=== PATIENT | female | born 1945 | race Caucasian/White ===

== ENCOUNTER 2023-10-14 13:33 | Outpatient (CLI) | payer MEDICARE, MEDICAID, SELFPAY ==
--- NOTE | ~2023-10-14 | US_ITS ---
EXAMINATION:US venous doppler LE BI INDICATION:Lower extremity swelling TECHNIQUE: Multiple grayscale, color flow and Doppler images of the right and left lower extremity de ep venous systems were obtained and reviewed. COMPARISON:No prior studies for comparison. FINDINGS: The common femoral, superficial femoral and popliteal veins demonstrate normal respiratory variation, augmentation and compressibility. Color flow is also seen within the posterior tibial, pe roneal, greater saphenous and profunda veins. IMPRESSION: 1: No lower extremity deep venous thrombosis. Reviewed, dictated and finalized at location B.
== END 2023-10-14 13:34 | disposition home or self-care (01) ==
LOC: ANHIMG 13:33
PROVIDERS: PCP Internal Medicine; Visit Provider Internal Medicine
DX: M79.89 Other specified soft tissue disorders (principal)
CPT/HCPCS: 93970

== ENCOUNTER 2023-11-12 05:25 | Emergency (ER) | payer MEDICARE, MEDICAID, SELFPAY ==
--- NOTE | ~2023-11-12 | XR_ITS ---
Portable chest x-ray Comparison: 10/11/2014 Clinical History: Shortness of breath Findings: There is central congestive change and probable minimal interstitial edema. Cardiomediast inal silhouette is stable. Bones and soft tissues are unremarkable, aside from cervicothoracic spinal fixation hardware. Impression: Central congestive change and minimal interstitial edema. Reviewed, dictated and finalized at [facility]. Impression: Central congestive change and minimal interstitial edema.
--- NOTE | ~2023-11-12 | CT_ITS ---
Clinical Indication: Shortness of breath, abdominal pain CT Scan of the Chest, Abdomen, and Pelvis with Contrast: Technique: Contiguous sections were acquired throughout the chest, abdomen, and pelvis after intraven ous administration of 100 cc of Omnipaque 350. Dose reduction technique was used on this scan by dylan panchaling automated exposure control and iterative reconstruction technique. The dose-length product (DL P) was 2213.32 mGy-cm. Findings: There is no evidence of any significant mediastinal, hilar or axillary lymphadenopathy. The mediastin al soft tissues appear normal. There is no evidence of pleural or pericardial effusion. The lungs are clear, aside from left lower lobe calcified granuloma. Mild intrahepatic and extra hepatic biliary dilatation is likely related to prior cholecystectomy. Li compa is otherwise unremarkable. The spleen, pancreas, adrenals and kidneys are within normal limits. T here are atherosclerotic calcifications of the aorta. There are several probably densely calcified s mall splenic artery aneurysms. No lymphadenopathy. No bowel obstruction. Questionable mild wall thickening of the gastric antrum versus proximal duodenu m. Possible mild urinary bladder wall thickening. No pelvic mass seen. No ascites. Impression: Questionable mild wall thickening of the gastric antrum/proximal duodenum. Correlate for gastritis/du odenitis, or possibly peptic ulcer disease. Possible cystitis. Correlate with urinalysis. No pulmonary embolus. Clear lungs. Several probable small densely calcified splenic artery aneurysms. Reviewed, dictated and finalized at location . Impression: Questionable mild wall thickening of the gastric antrum/proximal duodenum. Kennedy elate for gastritis/duodenitis, or possibly peptic ulcer disease. Possible cystitis. Correlate with urinalysis. No pulmonary embolus. Clear lungs. Several probable small densely calcified splenic artery aneurysms.
[2023-11-12 05:39] VITALS: BP 157/73; PULSE 107; RESP 20; TEMP 36.4; O2SAT 98; O2SAT 99
--- NOTE | 2023-11-12 05:42 | ECG_ITS ---
Test Date: 2023-11-12 06:13:54 Measurements Intervals [place] Rate: 90 P: 58 LA: 164 QRS: 29 QRSD: 74 T: 35 QT: 352 QTc: 431 Interpretive Statements SINUS RHYTHM WITH SINUS ARRHYTHMIA LOW QRS VOLTAGE IN LIMB LEADS BASELINE ARTIFACT- I, II, III, AVR, AVL, AVF, V3 BORDERLINE ECG No previous ECG available for comparison Electronically Signed On 11-12-2023 06:57:06 CDT by Edenilson Rodriguez D.O.
--- NOTE | 2023-11-12 05:44 | ED.GENADULT ---
HPI - General Adult General Chief complaint: Shortness of Breath/Dyspnea <Tee Lawrence MD - Last Filed: 11/22/23 07:29> Stated complaint: dizzy and sob, worsening LE edema, hx CHF <Tee Lawrence MD - Last Filed: 11/22/23 07:29> Time Seen by Provider: 11/12/23 05:34 <Tee Lawrence MD - Last Filed: 11/22/23 07:29> History of Present Illness HPI narrative: 78-year-old female history of polio and CHF presents the emergency department for evaluation for worsening shortness of breath. Patient does had her blood pressure medications changed yesterday and did start taking the new medication. Patient woke up in the night with left upper quadrant pain and worsening shortness of breath. Patient denies any associated chest pain with this. Patient does report that she has had the left upper quadrant pain before. Patient also reports she has worsening lower extremity edema bilaterally. <Tee Lawrence MD - Last Filed: 11/22/23 07:29> Related Data Allergies/adverse reactions: Allergies Allergy/AdvReac Type Severity Reaction Status Date / Time codeine Allergy Unknown Abdominal Verified 11/12/23 05:26 Pain <Tee Lawrence MD - Last Filed: 11/22/23 07:29> Review of Systems Review of Systems: All systems reviewed & are unremarkable except as noted in HPI and below <Tee Lawrence MD - Last Filed: 11/22/23 07:29> PMFSH Family History Family History: Family History (Updated 11/02/13 @ 07:13 by DOCTOR UNKNOWN) Father Family history of congestive heart failure, Onset Age: 75 Other Diabetes mellitus Family history of arthritis Family history of cardiovascular disease Hypertension <Tee Lawrence MD - Last Filed: 11/22/23 07:29> Social History Social History: Social History Smoking status: Never smoker Alcohol intake: never <Tee Lawrence MD - Last Filed: 11/22/23 07:29> Exam Narrative: APPEARANCE: Well appearing, no pain, no distress, well-nourished. HEAD: normocephalic, atraumatic. EYES: PERRLA/EOMI, conjunctivae clear. NOSE: Normal no drainage EARS:TMS clear with good light reflex. THROAT: Pharynx clear, no exudate. NECK: Supple. No adenopathy, no masses. RESPIRATORY: Airway patent, respirations nonlabored. Clear to auscultation bilaterally, no rales, rhonchi, wheezing. CARDIOVASCULAR: Regular rate and rhythm without murmurs rubs or gallops. ABDOMINAL: Soft, nontender, nondistended, normal bowel sounds MUSCULOSKELETAL: Moves all extremities. Bilateral lower extremity edema NEURO: Alert. Cranial nerves II through XII intact. Grossly SKIN: Warm, dry. Normal Color <Tee Lawrence MD - Last Filed: 11/22/23 07:29> Course Vital Signs Vital signs: Vital Signs Temperature 97.6 F 11/12/23 05:39 Pulse Rate 107 H 11/12/23 05:39 Respiratory Rate 20 11/12/23 05:39 Blood Pressure 157/73 H 11/12/23 05:39 Pulse Oximetry 98 11/12/23 05:39 Oxygen Delivery Room Air 11/12/23 05:39 Temperature 97.6 F 11/12/23 05:39 Pulse Rate 88 11/12/23 08:17 Respiratory Rate 16 11/12/23 08:17 Blood Pressure 140/56 L 11/12/23 08:17 Pulse Oximetry 96 11/12/23 08:17 Oxygen Delivery Room Air 11/12/23 05:39 <Tee Lawrence MD - Last Filed: 11/22/23 07:29> Vital Signs Temperature 97.6 F 11/12/23 05:39 Pulse Rate 107 H 11/12/23 05:39 Respiratory Rate 20 11/12/23 05:39 Blood Pressure 157/73 H 11/12/23 05:39 Pulse Oximetry 98 11/12/23 05:39 Oxygen Delivery Room Air 11/12/23 05:39 Temperature 97.6 F 11/12/23 05:39 Pulse Rate 88 11/12/23 08:17 Respiratory Rate 16 11/12/23 08:17 Blood Pressure 140/56 L 11/12/23 08:17 Pulse Oximetry 96 11/12/23 08:17 Oxygen Delivery Room Air 11/12/23 05:39 <Julian Fu MD - Last Filed: 11/12/23 07:55> Medical Decision Making MDM Narrative Medical decision making narrative: 78-year-old female presenting
[2023-11-12 06:15] LABS: Basophils Absolute Auto 0.1 K/mm3 (0.0-0.1); Basophils Percent Auto 0.8 % (0.2-1.2); Eosinophils Absolute Auto 0.2 K/mm3 (0-0.3); Eosinophils Percent Auto 2.3 % (0-4.4); Hematocrit 40.7 % (37.0-47.0); Hemoglobin 13.7 g/dL (12.0-15.0); Immature Granulocyte Absolute 0.02 K/mm3 (0.00-0.031); Immature Granulocyte Percent A 0.3 % (0-0.5); Lymphocytes Absolute Auto 2.85 K/mm3 (0.9-3.2); Lymphocytes Percent Auto 35.9 % (18.3-44.2); Mean Corpuscular HGB Conc 33.7 g/dl (32-36); Mean Corpuscular Hemoglobin 31.9 pg (26-34); Mean Corpuscular Volume 94.7 fl (80-100); Mean Platelet Volume 9.8 fl (7.4-10.4); Monocytes Absolute Auto 0.6 K/mm3 (0.1-0.6); Monocytes Percent Auto 7.9 % (2.6-8.5); Neutrophils Absolute Auto 4.2 K/mm3 (1.3-6.7); Neutrophils Percent Auto 52.8 % (45.5-73.1); Platelet Count Result 317 k/mm3 (150-375); Red Cell Distribution Width 14.5 % (11.5-14.5); White Blood Count 7.9 K/mm3 (4.5-10.0)
[2023-11-12 06:18] LABS: Add Urine Microscopic? NO; Appearance Urine Clear (Clear); Bilirubin Urine Negative (Negative); Blood Urine Negative (Negative); Color Urine Yellow (Yellow); Glucose Urine UA Negative (Negative); Ketones Urine Negative (Negative); Leukocyte Esterase Ur Negative LEU/UL (Negative); Nitrate Urine Negative (Negative); Protein Urine Negative (Negative); Specific Grav Ur 1.015 (1.001-1.035); Urobilinogen Urine 0.2 mg/dL (<2.0)
[2023-11-12 06:25] LABS: Alanine Aminotransferase 35 U/L (6-35); Alkaline Phosphatase 243 U/L (38-126); Anion Gap 11 mmol/L (4-12); Aspartate Amino Transferase 30 U/L (14-36); Bilirubin,Total 0.9 mg/dL (0.2-1.3); Blood Urea Nitrogen 14 mg/dL (7-17); Calcium 9.1 mg/dL (8.4-10.2); Carbon Dioxide 27 mmol/L (22-30); Chloride 99 mmol/L (98-107); Estimated Glomerular Filt Rate > 60; Glucose 182 mg/dL (65-110); Potassium 3.6 mmol/L (3.4-5.0); Sodium 137 mmol/L (137-145)
[2023-11-12 06:33] LABS: NT Pro B Type Natriuretic Pept 116 pg/mL (19.9-100)
[2023-11-12 06:37] LABS: D Dimer 0.79 ug/mL (<0.48)
[2023-11-12 06:49] LABS: INR 0.9; Partial Thromboplastin Time 27.4 Seconds (22.3-36.8); Prothrombin Time 12.8 Seconds (11.1-14.7)
[2023-11-12 07:30] VITALS: BP 145/55; PULSE 91; RESP 19; O2SAT 97
[2023-11-12 08:17] VITALS: BP 140/56; PULSE 88; RESP 16; O2SAT 96
[2023-11-12 08:36] LABS: Influenza A QL RT-PCR Negative (Negative); Influenza B QL RT-PCR Negative (Negative); RSV RNA, RT-PCR Negative (Negative); SARS-CoV-2 RNA PCR Negative (Negative)
== END 2023-11-12 08:19 | disposition home or self-care (01) ==
PROVIDERS: Emergency Medicine; Emergency Provider Student in an Organized Health Care Education/Training Program; PCP Internal Medicine
DX: K29.70 Gastritis, unspecified, without bleeding (principal); K29.80 Duodenitis without bleeding; I50.9 Heart failure, unspecified; A80.9 Acute poliomyelitis, unspecified; Z20.822 Contact with and (suspected) exposure to COVID-19
CPT/HCPCS: 36415; 71045; 71275; 74177; 80053; 81003; 83880; 85025; 85380; 85610; 85730; 87637; 93005; 99284; Q9967

== ENCOUNTER 2023-12-24 12:21 | Outpatient (CLI) | payer MEDICARE, MEDICAID, SELFPAY ==
[2023-12-24 13:17] LABS: Alanine Aminotransferase 36 U/L (6-35); Albumin Level 4.2 g/dL (3.5-5.1); Alkaline Phosphatase 161 U/L (38-126); Aspartate Amino Transferase 31 U/L (14-36); Bilirubin,Total 0.6 mg/dL (0.2-1.3)
== END 2023-12-24 12:22 | disposition home or self-care (01) ==
PROVIDERS: PCP Internal Medicine; Visit Provider Nurse Practitioner Family
DX: R74.8 Abnormal levels of other serum enzymes (principal)
CPT/HCPCS: 36415; 80076; 84075; 84080

== ENCOUNTER 2024-01-12 08:53 | Outpatient (CLI) | payer MEDICARE, MEDICAID, SELFPAY ==
[2024-01-12 10:48] LABS: Hepatitis B Surface Antigen Negative (Negative)
[2024-01-12 10:54] LABS: HAV RESULT Negative (Negative); Hepatitis B Core IgM Result Negative (Negative)
[2024-01-12 11:02] LABS: Iron 64 ug/dL (37-170)
[2024-01-12 11:06] LABS: Hepatitis C Virus Antibody Negative (Negative)
[2024-01-12 11:14] LABS: Percent Iron Saturation 16 % (20-50)
[2024-01-13 07:48] LABS: GGT 24 U/L (3-65)
[2024-01-18 02:54] LABS: Alpha-1-Antitrypsin, QN 134 mg/dL (83-199); Ceruloplasmin 25 mg/dL (14-48)
[2024-01-18 06:25] LABS: Actin Antibody (IgG) <20 U (<20)
== END 2024-01-12 08:54 | disposition home or self-care (01) ==
PROVIDERS: PCP Internal Medicine; Visit Provider Nurse Practitioner Family
DX: R74.8 Abnormal levels of other serum enzymes (principal); R10.12 Left upper quadrant pain
CPT/HCPCS: 36415; 80074; 81596; 82103; 82390; 82728; 82977; 83520; 83540; 83550; 86038; 86039; 86364

== ENCOUNTER 2024-01-17 09:24 | Emergency (ER) | payer MEDICARE, MEDICAID, SELFPAY ==
--- NOTE | ~2024-01-17 | CT_ITS ---
EXAMINATION: CT cervical spine wo con DATE: 01/17/2024 12:15 INDICATION: Neck pain. TECHNIQUE: Computed tomography (CT) of the cervical spine was performed without intravenous contrast. Automated exposure control and iterative reconstruction technique were employed. The dose-length pro duct was 457.93 mGy-cm. COMPARISON: CT cervical spine 01/18/2014 FINDINGS: Alignment is normal. There are changes of anterior fusion procedure from C3 to C7 with ante rior plate and screws. There is mild chronic anterior wedging of T1 vertebral body. Intervertebral di sc heights are normal. At the C1-C2, there is severe osteoarthritis of the facet joints and anterior atlantoaxial joint. The following disc levels are specifically discussed: C2-C3: There is moderate bilateral uncovertebral joint osteoarthritis. There is severe bilateral face t joint osteoarthritis. There is moderate right and mild left neural foraminal stenosis. There is mil d central canal stenosis. C3-C4: There is mild bilateral uncovertebral joint hypertrophy. There is mild left facet joint osteoa rthritis. There is ankylosis of right facet joint with mild hypertrophy. There is mild bilateral neur al foraminal stenosis. There is no central canal stenosis. C4-C5: There is moderate bilateral uncovertebral joint hypertrophy. There is ankylosis of the facet j oints with mild hypertrophy. There is mild bilateral neural foraminal stenosis. There is mild central canal stenosis. C5-C6: There is moderate bilateral uncovertebral joint hypertrophy. There is moderate bilateral facet joint osteoarthritis. There is mild right and moderate left neural foraminal stenosis. There is mild central canal stenosis. C6-C7: There is moderate bilateral uncovertebral joint hypertrophy. There is mild bilateral facet cristi nt osteoarthritis. There is mild bilateral neural foraminal stenosis. There is no central canal steno sis. C7-T1: There is mild bilateral uncovertebral joint osteoarthritis. There is severe bilateral facet helen int osteoarthritis. There is mild bilateral neural foraminal stenosis. There is no central canal sten osis. IMPRESSION: 1. Anterior fusion procedure from C3 to C7. 2. Moderate left neural foraminal stenosis at C5-C6. Otherwise mild cervical spondylosis. Reviewed, dictated and finalized at location A. ION GATEMAN IMPRESSION: 1. Anterior fusion procedure from C3 to C7. 2. Moderate left neural foraminal stenosis at C5-C6. Otherwise mild cervical sp ondylosis.
[2024-01-17 09:37] VITALS: BP 160/62; PULSE 77; RESP 14; TEMP 36.7; O2SAT 100
--- NOTE | 2024-01-17 11:27 | PC.NURSE ---
Patient having neck pain bilaterally, lympnodes feel enlarged. patient unable to open mouth to allow visualization of throat. patient denies sore throat but reports postnasal drip and cold from weather change last week.
--- NOTE | 2024-01-17 11:51 | ED.GENADULT ---
HPI - General Adult General Chief complaint: Neck Pain/Injury Stated complaint: neck pain Time Seen by Provider: 01/17/24 11:26 History of Present Illness HPI narrative: 78-year-old female presents to the emergency department for evaluation for neck pain. Patient describes bilateral neck pain that radiates from her shoulders into her neck. Patient denies any falls or injuries. Patient does have history of polio and is wheelchair-bound. Patient is requesting medication for pain control. Patient denies any associated numbness or weakness. Related Data Home Medications Medication Instructions Recorded Confirmed B-complex with vitamin C 1 tablet PO DAILY 12/03/23 allopurinol 300 mg tablet 300 mg PO DAILY 12/03/23 atorvastatin 20 mg tablet 20 mg PO DAILY 12/03/23 cholecalciferol (vitamin D3) 125 125 mcg PO DAILY 12/03/23 mcg (5,000 unit) capsule hydralazine 10 mg tablet 10 mg PO BID 12/03/23 metformin 500 mg tablet,extended 500 mg PO BID 12/03/23 release 24hr (osmotic) metoprolol succinate 100 mg 100 mg PO DAILY 12/03/23 tablet,extended release 24 hr olmesartan 40 mg tablet 40 mg PO DAILY 12/03/23 pantoprazole 40 mg tablet,delayed 40 mg PO QAM 12/03/23 release spironolactone 25 mg tablet 25 mg PO DAILY 12/03/23 tramadol 50 mg tablet 50 mg PO ONCE 12/03/23 Allergies Allergy/AdvReac Type Severity Reaction Status Date / Time codeine Allergy Unknown Abdominal Verified 01/17/24 09:41 Pain Review of Systems Review of Systems: All systems reviewed & are unremarkable except as noted in HPI and below [facility] Past Medical History Medical History (Updated 01/17/24 @ 14:22 by Tee Lawrence MD) Allergies Arthritis Chronic GERD Diabetes History of blood clots Hypertension Polio Surgical History Surgical History (Updated 12/03/23 @ 14:28 by Dian Galaviz MA) H/O heart artery stent Family History Family History Father Family history of congestive heart failure, Onset Age: 75 Other Diabetes mellitus Family history of arthritis Family history of cardiovascular disease Hypertension Social History Social History Smoking status: Never smoker Alcohol intake: never Exam Narrative: APPEARANCE: Uncomfortable appearing HEAD: normocephalic, atraumatic. EYES: PERRLA/EOMI, conjunctivae clear. NOSE: Normal no drainage EARS:TMS clear with good light reflex. THROAT: Pharynx clear, no exudate. NECK: Supple. No adenopathy, no masses. RESPIRATORY: Airway patent, respirations nonlabored. Clear to auscultation bilaterally, no rales, rhonchi, wheezing. CARDIOVASCULAR: Regular rate and rhythm without murmurs rubs or gallops. ABDOMINAL: Soft, nontender, nondistended, normal bowel sounds MUSCULOSKELETAL: Bilateral trapezius tenderness tenderness that radiates into her bilateral neck. NEURO: Alert. Cranial nerves II through XII intact. Good gait. Good coordination SKIN: Warm, dry. Normal Color Course Vital Signs Vital signs: Vital Signs Temperature 98.1 F 01/17/24 09:37 Pulse Rate 77 01/17/24 09:37 Respiratory Rate 14 01/17/24 09:37 Blood Pressure 160/62 H 01/17/24 09:37 Pulse Oximetry 100 01/17/24 09:37 Oxygen Delivery Room Air 01/17/24 09:37 Temperature 98.1 F 01/17/24 09:37 Pulse Rate 99 01/17/24 14:28 Respiratory Rate 16 01/17/24 14:28 Blood Pressure 132/61 01/17/24 14:28 Pulse Oximetry 98 01/17/24 14:28 Oxygen Delivery Room Air 01/17/24 09:37 Medical Decision Making [facility] Narrative Medical decision making narrative: 78-year-old female presents emergency department for bilateral muscular neck pain. Patient had negative CT imaging. Patient reports she does feel improved with treatment. Patient will be discharged home with [facility] and Keldron. Patient family are comfortable with plan for discharge and close follow-up. Suspect trapezius strain Differential Diagnosis Differential Diagnosis: Cervical spine fracture, cervical strain, cervical radiculopathy, trapezius strain, torticollis Vital Signs Vital Signs: Vital Signs Temperature 98.1 F 01/17/24 09:37 Pulse Rate 77 01/17/24 09:37 Respiratory Rate 14 01/17/24 09:37 Blood Pressure 160/62 H 01/17/24 09:37 Pulse Oximetry 100 01/17/24 09:37 Oxygen Delivery Room Air 01/17/24 09:37 Temperature 98.1 F 01/17/24 09:37 Pulse Rate 99 01/17/24 14:28 Respiratory Rate 16 01/17/24 14:28 Blood Pressure 132/61 01/17/24 14:28 Pulse Oximetry 98 01/17/24 14:28 Oxygen Delivery Room Air 01/17/24 09:37 Imaging Data Radiologist's impression: Impressions Cervical Spine CT 01/17/24 12:16 IMPRESSION: 1. Anterior fusion procedure from C3 to C7. 2. Moderate left neural foraminal stenosis at C5-C6. Otherwise mild cervical spondylosis. Discharge Plan Discharge Clinical Impression: Strain of cervical portion of both trapezius muscles Patient Disposition: Home, Self-Care Condition: Stable Instructions: Antibiotic Form, Neck Pain (ED) Additional Instructions: Flexeril for muscle spasm. Tylenol for pain control. Replace the Tylenol with Keldron for additional pain control. Do not take Tylenol and Keldron at the same time as both do contain acetaminophen. Have close follow-up with your primary care physician. If you have any worsening symptoms then please call or return to the emergency department. Prescriptions: New cyclobenzaprine 10 mg tablet 10 mg PO BID PRN (Reason: muscle spasm) Qty: 14 0RF hydrocodone-acetaminophen 5-325 mg tablet 1 tablet PO Q12H PRN (Reason: pain) Qty: 14 0RF ondansetron 4 mg tablet,disintegrating 4 mg PO Q8H PRN (Reason: nausea and vomiting) Qty: 14 0RF No Action olmesartan 40 mg tablet 40 mg PO DAILY allopurinol 300 mg tablet 300 mg PO DAILY spironolactone 25 mg tablet 25 mg PO DAILY pantoprazole 40 mg tablet,delayed release (DR/EC) 40 mg PO QAM hydralazine 10 mg tablet 10 mg PO BID metformin 500 mg tablet extended release 24 hr 500 mg PO BID atorvastatin 20 mg tablet 20 mg PO DAILY B-complex with vitamin C Tablet 1 tablet PO DAILY tramadol 50 mg tablet 50 mg PO ONCE metoprolol succinate 100 mg tablet extended release 24 hr 100 mg PO DAILY cholecalciferol (vitamin D3) 125 mcg (5,000 unit) capsule 125 mcg PO DAILY famotidine [Pepcid] 20 mg tablet 20 mg PO BID Qty: 20 0RF alum-mag hydroxide-simeth [Maalox Maximum Strength] 400-400-40 mg/5 mL suspension 10 ml PO TID PRN (Reason: indigestion) Qty: 3000 0RF sodium,potassium,mag sulfates [Suprep Bowel Prep Kit] 17.5-3.13-1.6 gram recon soln See Rx Instructions PO .COMPLEX Qty: 354 0RF Rx Instructions: Take as directed per the written instructions that were mailed to you Follow-up/Referrals: Chinedu,Mega Palacios MD [Primary Care Provider] -
[2024-01-17] MEDS: CYCLOBENZAPRINE HCL 10 MG TABLET PO (12:29)
[2024-01-17] MEDS: fentaNYL CITRATE INJ (*CRX) 100 MCG/2 ML VIAL 50 MCG IV PUSH ×2 (12:29→14:29)
[2024-01-17 12:43] VITALS: BP 174/67; PULSE 90; RESP 12; O2SAT 100
--- NOTE | 2024-01-17 13:18 | PC.NURSE ---
patient sleeping, FLACC score used for pain, vital signs stable. daughter states patient was saying that pain was improved before falling asleep.
[2024-01-17 13:21] VITALS: BP 173/66; PULSE 90; RESP 20; O2SAT 94
[2024-01-17 14:28] VITALS: BP 132/61; PULSE 99; RESP 16; O2SAT 98
[2024-01-17] MEDS: HYDROcodone/acetaminophen (*CRX) 5-325 MG TABLET 1 TAB PO (14:30)
--- NOTE | 2024-01-17 14:50 | PC.NURSE ---
Pt transferred to personal electric scooter by multiple staff members and pt. daughter. Successful transfer. Pt in no acute distress. Pt d/c to home with daughter via handicap equipped van.
== END 2024-01-17 14:56 | disposition home or self-care (01) ==
PROVIDERS: Emergency Provider Emergency Medicine; PCP Internal Medicine
DX: S16.1XXA Strain of muscle, fascia and tendon at neck level, initial encounter (principal); Z86.12 Personal history of poliomyelitis; Z99.3 Dependence on wheelchair; E11.9 Type 2 diabetes mellitus without complications; K21.9 Gastro-esophageal reflux disease without esophagitis
CPT/HCPCS: 72125; 96374; 96375; 99284; A9270; J3010

== ENCOUNTER 2024-03-28 09:40 | Outpatient (CLI) | payer MEDICARE, MEDICAID, SELFPAY ==
--- NOTE | ~2024-03-28 | US_ITS ---
Limited Abdominal Sonogram: Real-time sonographic imaging of the right upper quadrant and left upper quadrant was performed. Clinical History: Abnormal serum enzyme levels Findings: The liver appears mildly echogenic, with no evidence of mass lesion or bile duct dilatatio n. Main portal vein demonstrates normal direction of flow. The gallbladder is absent, compatible prio r cholecystectomy. The common bile duct measures 2 mm. The visualized pancreas, aorta, and IVC are u nremarkable. Spleen is unremarkable. Impression: Diffuse fatty infiltration of the liver. Status post cholecystectomy. Reviewed, dictated and finalized at location M. [employer] Impression: Diffuse fatty infiltration of the liver. Status post cholecystectomy.
--- OUTSIDE RECORDS SUMMARY | 2024-03-30 16:56 | XMS_ITS | Data Portability ---
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 Name Role Phone MAURI CHE Primary Care Provider Assessment Encounter Date Assessment Date Assessment LastModified by Organization Details LastModified Time 03/07/2024 03/07/2024 needs to update med list and keep f/u appointment [email or web address] Not available 03/07/2024 12:07:42 Plan of Treatment Reminders Order Date Submit Date Provider Last Modified By Organization Details Last Modified Time Details Appointments Any 15 2024 09:00A Flores Che MD Not available Not available Not available Medicare Wellness 15 2024 01:00P Flores Che MD Not available Not available Not available Lab glycohemo globin, total, blood 2023 024 [facility] (Lab), [address] [place], [address], 12/22/2023 20:51:40 CMP, serum or plasma 2023 024 [facility] (Lab), [address] [place], [address], 12/22/2023 19:35:31 Referral None recorded. Procedures None recorded. Surgeries None recorded. Imaging US, duplex, venous, lower extremity , complete - BILATE RAL 2023 024 [facility], [facility] [address], [address], 10/15/2023 18:07:54 Medication Orders Augmentin 875 mg-125 mg tablet 2023 024 [email or web address] [id number], [address], [place], [address], 12/28/2023 12:32:36 hydralazi ne 50 mg tablet 2023 024 [id number] [id number], [address], [place], [address], 02/29/2024 05:07:44 Augmentin 875 mg-125 mg tablet 2023 024 [email or web address] [id number], [address], [place], [address], 12/28/2023 12:32:36 tramadol 50 mg tablet 2023 024 VIKTOR [id number], [address], [place], [address], 03/07/2024 12:09:50 Patient TargetsNo targets recorded. Patient Instructions Encounter Date Encounter Id Patient Instructions Last Modified By Organization Details Last Modified Time 03/07/2024 [id number] Thank you for your visit to our office today. We would like to request that you reach out to your referring or previous provider and request that they send us a Summary of Care in electronic form, so that we may have it on file in your medical record. At your visit, we had the medical records we needed to provide you with the best possible care; however, for insurance purposes, an electronic Summary of Care is beneficial. Thank you for your assistance in obtaining this information and we look forward to providing continued care to you. Please review your medication list from the Summary of Care for this visit. If there are any differences from what you are currently taking at home, please call us to discuss. [email or web address] Not available 03/07/2024 11:33:18 Homebound Status: {{Patient has an inability to leave the home without a taxing effort and assistance from another person Does not meet homebound status}} Required Home Health Services: {{none fci, physical therapy, occupational therapy fci, physical therapy fci}} Durable Medical Equipment needed: {{cane walker wa lker with seat manual wheelchair bedsi de commode oxygen}} Billing Guidelines CPT code 43555- Transitional Care Management services with moderate medical decision complexity (vrmx-cw-njro visit within 14 days of discharge). CPT code 51072- Transitional Care Management services with high medical decision complexity (qizz-is-afhq visit within 7 days of discharge). [email or web address] Not available 03/07/2024 11:33:18 Reason for Referral None Reported. Results Created Date Observation Date Name Description Value Unit Range Abnormal Flag Note LastModifiedBy Organization Detail LastModifiedTime 12/22/1912/22/2023 COMPR EHENS ADAIR METAB OLIC PANEL sodium 138 mmol/ L 137-14 5 Not Available [facility] (Lab) [address] [place], [address], 12/22/2023 19:35:31 12/22/1912/22/2023 COMPR EHENS ADAIR METAB OLIC PANEL potassium 4.2 mmol/ L 3.5-5. 1 Not Available [facility] (Lab) [address] [place], [address], 12/22/2023 19:35:31 12/22/1912/22/2023 COMPR EHENS ADAIR METAB OLIC PANEL chloride 103 mmol/ L 98-107 Not Available [facility] (Lab) [address] [place], [address], 12/22/2023 19:35:31 12/22/1912/22/2023 COMPR EHENS ADAIR METAB OLIC PANEL carbon dioxide 26 mmol/ L 22-30 Not Available [facility] (Lab) [address] [place], [address], 12/22/2023 19:35:31 12/22/19 24 12/22/2023 COMPR EHENS ADAIR METAB OLIC PANEL anion gap 13.2 mmol/ L 14-22 low Not Available [facility] (Lab) [address] [place], [address], 12/22/2023 19:35:31 12/22/19 24 12/22/2023 COMPR EHENS ADAIR METAB OLIC PANEL glucose 181 mg/dL 70-99 high Not Available [facility] (Lab) [address] [place], [address], 12/22/2023 19:35:31 12/22/19 24 12/22/2023 COMPR EHENS ADAIR METAB OLIC PANEL BUN 13 mg/dL 8-19 Not Available [facility] (Lab) [address] [place], [address], 12/22/2023 19:35:31 12/22/1912/22/2023 COMPR EHENS ADAIR METAB OLIC PANEL creatinine 0.41 mg/dL 0.66-1 .25 low Not Available [facility] (Lab) [address] [place], [address], 12/22/2023 19:35:31 12/22/19 24 12/22/2023 COMPR EHENS ADAIR METAB OLIC PANEL GFR >60 Refer ence Range : Butler ge GFR Healt hy Adult : >60 mL/mi n/1.7 3 m2 Chron ic Kidne y Disea se: 15-60 mL/mi n/1.7 3 m2 Kidne y Failu re: <15/m L/min /1.73 m2 www.n iddk. nih.g ov The MDRD study equat ion has not been valid ated in child germán <18 years of age; pregn ant women ; the elder ly >85 years of age; or in some racia l or ethni c subgr oups, such as Hispa nics. Outsi de the valid ated nu eters , estim ated GFR is less accur ate, requi ring clini nicko judgm ent on a case- by-ca se basis . Clini nicko inter preta tion for other races and ages must be made by the clini dennis. The MDRD study equat ion has not been valid ated for the evalu ation of serum creat inine relat ed to nutri shelbie l statu s or medic ation usage . For perso ns <18 years of age, a pedia tric GFR calcu lator is avail able on the [facility] websi te: https :[email or web address] [email or web address] ralph/raquel ofess ional s/kdo qi/gf r_cal culat or Not Available [facility] (Lab) [address] [place], [address], 12/22/2023 19:35:31 12/22/1912/22/2023 COMPR EHENS ADAIR METAB OLIC PANEL alkaline phosphatase 187 U/L 38-126 high Not Available [facility] (Lab) [address] [place], [address], 12/22/2023 19:35:31 12/22/19 24 12/22/2023 COMPR EHENS ADAIR METAB OLIC PANEL alanine aminotransfe rase 38 U/L 0-35 high Not Available [facility] (Lab) [address] [place], [address], 12/22/2023 19:35:31 12/22/19 24 12/22/2023 COMPR EHENS ADAIR METAB OLIC PANEL aspartate aminotransfe rase 35 U/L 15-37 Not Available [facility] (Lab) [address] [place], [address], 12/22/2023 19:35:31 12/22/19 24 12/22/2023 COMPR EHENS ADAIR METAB OLIC PANEL bilirubin, total 1.00 mg/dL 0.20-1 .30 Not Available [facility] (Lab) [address] [place], [address], 12/22/2023 19:35:31 12/22/19 24 12/22/2023 COMPR EHENS ADAIR METAB OLIC PANEL calcium 9.5 mg/dL 8.4-10 .2 Not Available [facility] (Lab) [address] [place], [address], 12/22/2023 19:35:31 12/22/19 24 12/22/2023 COMPR EHENS ADAIR METAB OLIC PANEL total protein 5.9 g/dL 6.3-8. 2 low Not Available [facility] (Lab) [address] [place], [address], 12/22/2023 19:35:31 12/22/19 24 12/22/2023 COMPR EHENS ADAIR METAB OLIC PANEL albumin 3.6 g/dL 3.0-4. 4 Not Available [facility] (Lab) [address] [place], [address], 12/22/2023 19:35:31 12/22/19 24 12/22/2023 COMPR EHENS ADAIR METAB OLIC PANEL globulin 2.3 g/dL 2.6-4. 2 low Not Available [facility] (Lab) [address] [place], [address], 12/22/2023 19:35:31 12/22/19 24 12/22/2023 COMPR EHENS ADAIR METAB OLIC PANEL A/G ratio 1.6 ratio 1.0-2. 0 Not Available [facility] (Lab) [address] [place], [address], 12/22/2023 19:35:31 12/22/19 24 12/22/2023 HEMOG LOBIN A1C HA1C 7.6 % 4.0-6. 0 high Diabe petros Scree zaida Crite chung: <5.7% Consi stent with absen ce of diabe petros 5.7-6 .4% Consi stent with incre ased risk for diabe petros (pred iabet es) >OR=6 .5% Consi stent with diabe petros REFER ENCE: Diabe petros Care 2015, 39(Triplett ppl.1 ):s13 -s22 Not Available [facility] (Lab) [address] [place], [address], 12/22/2023 20:51:40 10/06/19 24 10/06/2023 scree zaida thomas t diane, bilat [facility] [address] [facility] [place] [address] Patidayami meeks Name: GEORGETTE JAQUEZ ion #: [id number] Sex: F : 1945 7 Dictat ed By: Nicole Cobos Attend ing Physic diane: ELIJAH CHE ER Orderi ng Physic diane: ELIJAH CHE ER Exam Date: 2023 13:55 PM Exam Name: MG SCRN BREAST DIANE BILAT Admitt ing Diagno sis(es ): SCREEN ING MAMMOG CORRINE WITH TOMOSY NTHESI S: REASON FOR EXAM: screen ing COMPAR YARELIS: MG SCRN BREAST DIANE BILAT 3D on DOS: 07/09/21 TECHNI QUE: Bilate ral CC and MLO views obtain ed. Images were obtain ed using a Digita l Tomosy nthesi s Unit. Standa rd 2D and 3D Tomosy nthesi s images were review ed. FINDIN GS: BREAST COMPOS ITION: B - There are scatte red areas of fibrog landul ar densit y in the bilate ral breast s. In the right breast , no asymme trical parenc hymal patter n, nazario ectura l distor tion, pleomo rphic microc alcifi cation s or masses . In the left breast , no asymme trical parenc hymal patter n, nazario ectura l distor tion, pleomo rphic microc alcifi cation s or masses . IMPRES BRANDEE: No findin gs of malign victorino. FOLLOW UP RECOMM ENDATI ON: Recomm end annual mammog corrine. BIRADS : 2 - Benign Electr onical ly Signed by: Nicole Cobos at 2023 15:13: 49 PM Page 1 [email or web address] [facility] (Imaging) [address] [place], [address], 10/07/2023 14:08:39 10/06/19 24 10/06/2023 DEXA, axial skele ton [facility] [address] [place] [address] Patien t Name: GEORGETTE JAQUEZ ion #: [id number] Sex: F : 1945 7 Dictat ed By: Marisela Persaud Attend ing Physic diane: ELIJAH CHE Orderi Physic diane: ELIJAH CHE Exam Date: 2023 13:52 PM Exam Name: XR DEXA-H IPS PELVIS SPINE Admitt ing Diagno sis(es ): INDICA TION: ASYMPT OMATIC MENOPA USAL STATE. Postme nopaus al osteop orosis . Patien t in [facility] hair. Forear m only was able to be perfor med. TECHNI QUE: DEXA SCAN BONE DENSIT Y REPORT : LEFT forear m TOTAL : T Score: -4.1 IMPRES BRANDEE: Osteop orosis left forear m ------ ------ ------ ------ ------ ------ ------ ------ ----- *FRAX versio n 3.08. Fractu re probab ility calcul ated for an untrea raji patien t. Fractu re probab ility may be lower if the patien t has receiv ed treatm ent. T-scor e: compar yarelis by lizzie reed ion (SD) to a young adult popula tion, matche d for sex and ethnic ity (used for postme nopaus al women and men >50 years) and classi fied by WHO criter ia. -1.0: normal <-1.0 to >-2.5: osteop enia -2.5: osteop orosis -2.5 plus fragil ity fractu re: severe osteop orosis Z-scor e: compar ed by SD to an age, sex, and ethnic ity popula tion (used for premen opausa l women, men <50 years, and childr en instea d of T-scor e WHO Page 1 [facility] [address] [place] [address] Patidayami t Name: GEORGETTE JAQUEZ ion #: [id number] Sex: F : 1945 7 Dictat ed By: Marisela Persaud Attend ing Physic diane: SHAHAZD ANNE Orderi ng Physic diane: ELIJAH CHE ER Exam Date: 2023 13:52 PM Exam Name: XR DEXA-H IPS PELVIS SPINE Admitt ing Diagno sis(es ): criter ia 4) <-2.0: below expect ed range/ low bone densit y for age, and a cause should be sought Electr onical ly Signed by: Marisela Persaud at 2023 15:20: 28 PM Page 2 [facility] (Imaging) [address] [facility], [place], [address], 10/07/2023 14:08:40 10/15/19 24 10/14/2023 US, livle x, venou s, lower extre mity, compl ete No observ ation record ed. [email or web address] [facility] [address], [place], [address], 10/20/2023 12:42:33 11/12/19 24 11/12/2023 XR, chest , 1 view No observ ation record ed. [email or web address] Not Available 2023 10:10:50 01/17/20 24 01/17/2024 CT, cervi nicko spine , w/wo contr ast No observ ation record ed. BARCODE Not Available 2023 18:10:18 03/24/19 25 03/20/2024 sleep study , diagn ostic (PROC ) No observ ation record ed. [email or web address] Not Available 2024 13:07:38 Result Notes None recorded. Problems Name Problem SNOMED Code Status Onset Date Resolution Date Notes Provider Name and Address Organization Details Recorded Time Edema of lower extremity 426846720 Completed 201708/31/2017 Not Available [facility] 3 01:20:31 Gastroesop hageal reflux disease 245498591 Active 2016 Not Available [facility] 3 01:20:32 Edema 870134701 Completed 201608/31/2017 Not Available [facility] 3 01:20:32 Low back pain 171656384 Active 2021 Not Available [facility] 3 01:20:32 Finding of body mass index 212955442 Completed 202111/13/2021 Not Available [facility] 3 01:20:32 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 Not Available [facility] 3 01:20:32 Vitamin D deficiency 82685182 Active 2021 Not Available [facility] 3 01:20:32 Obesity 589346182 Active 2016 Not Available [facility] 3 01:20:32 Coronary arterioscl erosis 68234285 Active 2016 Not Available [facility] 3 01:20:32 Hyperlipid emia 01256680 Active 2016 Not Available [facility] 3 01:20:32 Essential hypertensi on 57249323 Active 2016 Not Available [facility] 3 01:20:33 Diarrhea 50050565 Completed 202103/19/2023 Alexa alvarado, PASQAULE null, [facility] 4 10:09:35 Osteoporos is 59932420 Active 2021 Not Available [facility] 3 01:20:33 Diabetes mellitus 90527832 Active 2016 Not Available [facility] 3 01:20:33 Overactive urinary bladder 248058442 Active 2020 Not Available [facility] 3 01:20:33 Neck pain 02553595 Completed 201601/18/2017 Mauri Che MD [address] [place] [address], [place] [address], [place], [address] , [place] [facility] [employer] [facility] 4 17:07:05 Gout 85530886 Active 2021 Not Available [facility] 3 01:20:33 Osteoarthr itis 189286675 Active 2022 Alexa alvarado RMA null, [facility] [employer] [facility] 4 10:09:26 Pruritic rash 62983717 Completed 202203/19/2023 Alexa alvarado RMA null, [facility] [employer] [facility] 4 10:09:30 Adult health examinatio n Active 2023 Alexa alvarado RMA null, [facility] [employer] [facility] 4 10:09:45 Swelling of bilateral lower limbs 290143487 Active 2023 Mauri Che MD [address], [place], [address] , [facility] [employer] [facility] 4 16:39:43 Infection of nail 079747371 Active 2023 Mauri Che MD [address], [place], [address] , [facility] [employer] [facility] 4 16:40:27 Type 2 diabetes mellitus without complicati on 287657166 Active 2023 Anne Bah LPN null, [facility] [employer] [facility] 4 12:32:15 Neck pain 02895619 Active 2023 Mauri Che MD [address], [place], [address] , [facility] [employer] [facility] 4 17:07:05 Problem Notes None recorded. Procedures Surgical History Date Name Laterality Status Provider Name and Address Organization Details Recorded Time Transitional_Care_ Management completed Patricia Hussein [place] [email or web address] [facility] [employer] [facility] 03/07/2024 11:33:19 Medicare Wellness CPT Code, subsequent completed Riri Szymanski RN [place] [facility] 08/18/2023 10:17:38 023 Medicare Wellness CPT Code, subsequent completed Lela Linares RN [facility] 06/24/2022 14:56:24 022 Date of Last Mammogram completed Lela Linares RN [facility] 06/24/2022 14:57:15 022 Most Recent Bone Density completed Lela Linares RN [facility] 06/24/2022 14:57:31 017 Date of Last Colonoscopy completed Not Available [facility] 05/06/2022 01:05:37 Foot Surgery completed [facility] 05/06/2022 01:05:40 Hysterectomy, Partial completed Not Available [facility] 05/06/2022 01:05:40 Cholecystectomy completed Not Available [facility] 05/06/2022 01:05:40 Unlisted px femur/knee completed Not Available [facility] 05/06/2022 01:05:40 Neck spine disk surgery completed Not Available [facility] 05/06/2022 01:05:40 Carpal tunnel surgery completed Not Available [facility] 05/06/2022 01:05:40 Stent Placement completed Not Available [facility] 05/06/2022 01:05:40 Appendectomy completed [facility] 05/06/2022 01:05:40 Imaging Results Imaging Date Name Status LastModified by Organiz ation Details LastModified Time 10/06/2023 screening breast diane, bilat completed [email or web address] [facility] [address] [place], [address], 10/07/2023 14:08:39 10/06/2023 DEXA, axial skeleton completed [email or web address] [facility] [address] [place], [address], 10/07/2023 14:08:40 10/14/2023 US, duplex, venous, lower extremity, complete completed [address], [address], 10/20/2023 12:42:33 11/12/2023 XR, chest, 1 view completed [email or web address] Information not available 12/22/2023 10:10:50 01/17/2024 CT, cervical spine, w/wo contrast completed BARCODE Information not available 01/17/2024 18:10:18 03/20/2024 sleep study, diagnostic (PROC) completed [email or web address] Information not available 03/28/2024 13:07:38 Procedure Notes None recorded. Medical Equipment None Reported. Allergies Allergen ID Allergen Name Allergen Category Reaction Reaction Severity Criticality Documentation Date Start Date Code Code System Note Provider Name and Address Organization Details Recorded Time 2858 codeine medicatio n nausea Not available Not available 05/06/2022 2670 RxNorm Not Available [facility] 3 01:38:49 Medications Name Sig Start Date Stop Date Status Note LastModified by Organization Details LastModified Time amoxicill in 500 mg capsule Take 1 capsule every 8 hours by oral route for 7 days. active Not Available Not Available No t Available furosemid e 40 mg tablet Take 1 tablet every day by oral route in the morning. 01/04 completed Not Available Not Available Not Available metformin 500 mg tablet TAKE 1 TABLET BY MOUTH THREE TIMES A DAY active Not Available Not Available No t Available Augmentin 875 mg-125 mg tablet Take 1 tablet every 12 hours by oral route. 12/27 completed Not Available Not Available Not Available atorvasta tin 20 mg tablet TAKE 1 TABLET BY MOUTH EVERY DAY 2023 active Not Available Not Available Not Avai lable benzonata te 200 mg capsule Take 1 capsule 3 times a day by oral route. 04/18 completed Not Available Not Available Not Available hydrocodo ne 5 mg-acetam inophen 325 mg tablet Take 1 tablet twice a day by oral route. 06/02 completed Not Available Not Available Not Available alendrona te 70 mg tablet TAKE 1 TABLET BY MOUTH ONE TIME PER WEEK 2023 active Not Available Not Available Not Avai lable metoprolo l succinate ER 100 mg tablet,ex tended release 24 hr TAKE 1 TABLET BY MOUTH EVERY DAY 2023 active ESTEPHANIA 01/27/24 NOV 04/26/24 ok to rf Not Available Not Available Not Available clindamyc in HCl 150 mg capsule TAKE 4 CAPSULES BY MOUTH ONE HOUR PRIOR TO APPOINTM ENT 02/13 completed Not Available Not Available Not Available metronida zole 500 mg tablet Take 1 tablet every 8 hours by oral route. active Not Available Not Available No t Available clopidogr el 75 mg tablet Take 1 tablet(s ) every day by oral route. 01/04 completed Not Available Not Available Not Available amlodipin e 5 mg tablet TAKE 1 TABLET BY MOUTH EVERY DAY 12/21 completed ESTEPHANIA 11/10/23 NOV 12/22/23 ok to rf Not Available Not Available Not Available omeprazol e 40 mg capsule,d elayed release Take 1 capsule every day by oral route. active Not Available Not Available No t Available tramadol 50 mg tablet TAKE 1 TABLET BY MOUTH TWICE A DAY NEEDED 2023 active Not Available Not Available Not Avai lable triamcino lone acetonide 0.1 % topical cream APPLY THIN COAT TO AFFECTED AREA TWICE A DAY 03/19 completed Not Available Not Available Not Available spironola ctone 25 mg tablet Take 12.5 mg every day by oral route in the morning. active Not Available Not Available No t Available glimepiri de 1 mg tablet TAKE 1 TABLET BY MOUTH TWICE A DAY 2024 active Not Available Not Available Not Avai lable Macrobid 100 mg capsule Take 1 capsule twice a day by oral route for 7 days. active Not Available Not Available No t Available famotidin e 20 mg tablet Take 1 tablet twice a day by oral route. active Not Available Not Available No t Available magnesium oxide 400 mg (241.3 mg magnesium ) tablet Take 1 tablet twice a day by oral route. active Not Available Not Available No t Available torsemide 100 mg tablet Take 1 tablet every day by oral route. 06/02 completed Not Available Not Available Not Available amlodipin e 10 mg tablet Take 5 mg every day by oral route in the morning. active Not Available Not Available No t Available cephalexi n 500 mg capsule TAKE 1 CAPSULE BY MOUTH 4 TIMES A DAY 02/13 completed Not Available Not Available Not Available pantopraz ole 40 mg tablet,de layed release TAKE 1 TABLET BY MOUTH EVERY DAY 2024 active Not Available Not Available Not Avai lable metformin 1,000 mg tablet Take 1 tablet twice a day by oral route. 06/11 completed 500 mg TID changed on 03/22/17 Not Available Not Available Not Available warfarin 5 mg tablet Take 1 tablet every day by oral route. 07/03 completed WArfarin stopped By keep taking plavix Not Available Not Available Not Available indometha allison 25 mg capsule Take 1 capsule 3 times a day by oral route. 04/13 completed Not Available Not Available Not Available omeprazol e 20 mg capsule,d elayed release TAKE ONE CAPSULE BY MOUTH TWICE DAILY active Not Available Not Available No t Available allopurin ol 300 mg tablet TAKE 1 TABLET BY MOUTH EVERY DAY 2023 active ESTEPHANIA 01/27/24 NOV 04/26/24 ok to rf Not Available Not Available Not Available hydralazi ne 50 mg tablet TAKE 1 TABLET BY MOUTH TWICE A DAY 2023 active ESTEPHANIA 01/27/24 NOV 04/26/24 ok to rf Not Available Not Available Not Available furosemid e 20 mg tablet Take 2 tablets every day by oral route. active Not Available Not Available No t Available metoprolo l succinate ER 25 mg tablet,ex tended release 24 hr TAKE 1 TABLET BY MOUTH EVERY DAY active Not Available Not Available No t Available ergocalci ferol (vitamin D2) 1,250 mcg (50,000 unit) capsule TAKE 1 CAPSULE BY MOUTH ONE TIME PER WEEK FOR 13 WEEKS THEN OTC active Not Available Not Available No t Available clobetaso l 0.05 % topical ointment APPLY A THIN LAYER TO THE AFFECTED AREA(S) BY TOPICAL ROUTE 2 TIMES PER DAY 06/01 completed Not Available Not Available Not Available azelastin e 137 mcg (0.1 %) nasal spray INSTILL 2 SPRAYS IN NOSTRIL( S) TWICE DAILY 02/12 completed Not Available Not Available Not Available ibuprofen 600 mg tablet TAKE 1 TABLET BY MOUTH EVERY 6 HOURS NEEDED FOR PAIN active Not Available Not Available No t Available Cipro 250 mg tablet Take 1 tablet every 12 hours by oral route for 7 days. 02/21 completed Not Available Not Available Not Available oxybutyni n chloride 5 mg tablet TAKE 1 TABLET BY MOUTH TWICE A DAY 12/27 completed Not Available Not Available Not Available Coumadin 1 mg tablet Take 1 tablet every day by oral route. 07/03 completed Not Available Not Available Not Available losartan 100 mg tablet TAKE 1 TABLET BY MOUTH EVERY DAY 04/18 completed Not Available Not Available Not Available metformin ER 500 mg tablet,ex tended release 24 hr TAKE 1 TABLET BY MOUTH EVERY DAY 2023 active ESTEPHANIA 01/27/24 NOV 04/26/24 ok to rf Not Available Not Available Not Available valsartan 160 mg tablet TAKE ONE TABLET BY MOUTH ONCE DAILY 09/21 completed recall Not Available Not Available Not Available olmesarta n 40 mg tablet TAKE 1 TABLET BY MOUTH EVERY DAY 2023 active ESTEPHANIA 08/18/23 NOV 12/22/23 ok to rf Not Available Not Available Not Available cyclobenz aprine 5 mg tablet Take 1 tablet 3 times a day by oral route. 08/31 completed Not Available Not Available Not Available metformin ER 1,000 mg tablet,ex tended release 24hr (osmotic) Take 1 tablet every day by oral route. 08/09 completed Not Available Not Available Not Available aspirin qd 2017 active Not Available Not Available Not Avai lable omeprazol e 20 mg tablet,de layed release Take 1 tablet twice a day by oral route. 12/08 completed Not Available Not Available Not Available Voltaren 1 % topical gel APPLY 2 GRAM TO THE AFFECTED AREA(S) BY TOPICAL ROUTE 4 TIMES PER DAY 06/01 completed Not Available Not Available Not Available metformin ER 1,000 mg 24 hr tablet,ex tended release (gastric reten.) TAKE 1 TABLET BY MOUTH EVERY DAY 10/10 completed Not Available Not Available Not Available Myrbetriq 50 mg tablet,ex tended release Take 1 tablet every day by oral route. 2023 active Not Available Not Available Not Avai lable Jardiance 10 mg tablet Take 1 tablet every day by oral route. active Not Available Not Available No t Available True Metrix Glucose Test Strip TEST ONE TWICE DAILY active Not Available Not Available No t Available OneTouch Ultra Blue Test Strip USE TO TEST GLUCOSE TWICE DAILY DIRECTED active Not Available Not Available No t Available Gemtesa 75 mg tablet Take 1 tablet every day by oral route. 06/24 completed Not Available Not Available Not Available Vitals Date Recorded Body height Body temperature Heart rate Oxygen saturation Oxygen saturation in Arterial blood by Pulse oximetry Systolic blood pressure Diastolic blood pressure Provider Name and Address Organization Details Last Updated DateTime 4 152.4 cm 98.1 [degF] 77 /min 96 % 96 % 140 mm[Hg] 70 mm[Hg] Alexa Torrespaulina terence Heather [facility] [employer] [facility] 4 15:58:24 Date Recorded Body height Body temperature Heart rate Oxygen saturation Oxygen saturation in Arterial blood by Pulse oximetry Systolic blood pressure Diastolic blood pressure Provider Name and Address Organization Details Last Updated DateTime 4 152.4 cm 97.5 [degF] 75 /min 98 % 98 % 152 mm[Hg] 70 mm[Hg] Alexa Torrespaulina terence Heather [facility] [employer] [facility] 4 15:58:41 Date Recorded Body height Body temperature Heart rate Oxygen saturation Oxygen saturation in Arterial blood by Pulse oximetry Systolic blood pressure Diastolic blood pressure Provider Name and Address Organization Details Last Updated DateTime 4 152.4 cm 97.2 [degF] 64 /min 98 % 98 % 138 mm[Hg] 80 mm[Hg] Alexa Pandey terence Heather [facility] [employer] [facility] 4 09:53:18 Date Recorded Body height Oxygen saturation Oxygen saturation in Arterial blood by Pulse oximetry Heart rate Body temperature Systolic blood pressure Diastolic blood pressure Provider Name and Address Organization Details Last Updated DateTime 4 152.4 cm 96 % 96 % 75 /min 97.3 [degF] 144 mm[Hg] 60 mm[Hg] Alexa lindapaulina terence Heather [facility] [employer] [facility] 4 16:47:43 Date Recorded Body temperature Heart rate Oxygen saturation Oxygen saturation in Arterial blood by Pulse oximetry Systolic blood pressure Diastolic blood pressure Provider Name and Address Organization Details Last Updated DateTime 4 97.1 [degF] 77 /min 97 % 97 % 138 mm[Hg] 60 mm[Hg] Patricia horta [facility] [employer] [facility] 4 11:44:35 Social History Question Answer Notes LastModified by Organizat ion Details LastModified Time Tobacco Smoking Status Never Smoker Not Available [facility] 05/06/2022 01:05:09 Do You Have An Advance Directive? Yes MIGRATION.[id number] Information not available 05/06/2022 What Is Your Level Of Alcohol Consumption? None MIGRATION.92410 43745 Information not available 05/06/2022 Are You Blind Or Do You Have Difficulty Seeing? No MIGRATION.38849 01013 Information not available 05/06/2022 What Is Your Level Of Caffeine Consumption? Moderate MIGRATION.50840 55842 Information not available 05/06/2022 How Much Tobacco Do You Chew? None MIGRATION.07079 51481 Information not available 05/06/2022 Are You Deaf Or Do You Have Serious Difficulty Hearing? No MIGRATION.29680 47855 Information not available 05/06/2022 What Type Of Diet Are You Following? REGULAR MIGRATION.80465 72099 Information not available 05/06/2022 Which Illicit Or Recreational Drugs Have You Used? None MIGRATION.46684 59619 Information not available 05/06/2022 Do You Or Have You Ever Used E-cigarettes Or Vape? Never Used Electronic Cigarettes MIGRATION.71181 40839 Information not available 05/06/2022 What Is Your Occupation? Retired MIGRATION.41530 75752 Information not available 05/06/2022 Have There Been Any Changes To Your Family Or Social Situation? No MIGRATION.87119 56424 Information not available 05/06/2022 What Is The Fluoride Status Of Your Home? Fluoridated MIGRATION.91415 28821 Information not available 05/06/2022 Are There Any Guns Present In Your Home? No MIGRATION.06798 68409 Information not available 05/06/2022 Where Do You Live? SingleLevelHouse MIGRATION.63054 87641 Information not available 05/06/2022 Presence Of Domestic Violence No [email or web address] Information not available 06/24/2022 Guns Present In The Home? No [email or web address] Information not available 08/18/2023 Are You Able To Care For Yourself? Yes [email or web address] Information not available 08/18/2023 Are You Blind Or Do Yo Have Difficulty Seeing? No [email or web address] Information not available 08/18/2023 Are You Deaf Or Do You Have Serious Difficulty Hearing? No [email or web address] Information not available 08/18/2023 Live Alone Of With Others? Alone [email or web address] Information not available 08/18/2023 What Was The Date Of Your Most Recent Tobacco Screening? 08/18/2023 [email or web address] Information not available 08/18/2023 Do You Have Any Pets? Yes MIGRATION.10622 32433 Information not available 05/06/2022 What Is Your Relationship Status? MIGRATION.85928 30096 Information not available 05/06/2022 Do You Use Your Seat Belt Or Car Seat Routinely? Yes MIGRATION.46005 73586 Information not available 05/06/2022 Do You Have Smoke And Carbon Monoxide Detectors In Your Home? Yes MIGRATION.92721 95007 Information not available 05/06/2022 Are You Passively Exposed To Smoke? No MIGRATION.56570 93532 Information not available 05/06/2022 Do You Or Have You Ever Used Smokeless Tobacco? Never Used Smokeless Tobacco MIGRATION.87195 87964 Information not available 05/06/2022 Are There Any Smokers In Your House? No MIGRATION.34998 76118 Information not available 05/06/2022 How Much Tobacco Do You Smoke? No MIGRATION.00035 03583 Information not available 05/06/2022 Do You Feel Stressed (tense, Restless, Nervous, Or Anxious, Or Unable To Sleep At Night)? [id number] Information not available 06/24/2022 Do You Use Sunscreen Routinely? No MIGRATION.89341 32149 Information not available 05/06/2022 Sex: Female Functional Status Question Answer Note LastModified by Organizat ion Details LastModified Time Do you have difficulty walking or climbing stairs? Yes MIGRATION.8360723 026 Information not available 05/06/2022 Do you have transportation difficulties? No MIGRATION.2557899 026 Information not available 05/06/2022 Are you able to walk? NOINDWHEEL MIGRATION.4088571 026 Information not available 05/06/2022 Do you have difficulty doing errands alone? No MIGRATION.1277016 026 Information not available 05/06/2022 Are you able to care for yourself? Yes MIGRATION.1070121 026 Information not available 05/06/2022 Do you have difficulty dressing or bathing? No MIGRATION.9140784 026 Information not available 05/06/2022 What is your exercise level? None MIGRATION.7399579 026 Information not available 05/06/2022 Mental Status Question Answer Note LastModified by Organizat ion Details LastModified Time Do you have difficulty concentrating, remembering or making decisions? No MIGRATION.[id number] 6 Information not available 05/06/2022 Family History Relationship Description Onset Age of this Age Resolved Age Notes LastModified by Organization Details LastModified Time Father Heart disease MIGRATION.576 [id number] Not available 05/06/2022 01:05:48 Father Essential hypertension MIGRATION.243 [id number] Not available 05/06/2022 01:05:48 Mother Heart disease MIGRATION.053 3688162 Not available 05/06/2022 01:05:48 Mother Essential hypertension MIGRATION.234 4698345 Not available 05/06/2022 01:05:48 Brother Heart disease MIGRATION.421 0836587 Not available 05/06/2022 01:05:48 Medical History No medical history recorded. Gynecological History Statement/Question Response Date of Last Mammogram 06/30/2018 Date of Last Colonoscopy 10/07/2016 Date of Last Mammogram 07/09/2021 Most Recent Bone Density 07/09/2021 Obstetrics History GPAL:G 0 P 0 0 0 0 Past Encounters Encounter ID Performer Location Encounter Start Date Encounter Closed Date Diagnosis/Indication Diagnosis SNOMED-CT Code Diagnosis ICD10 Code Diagnosis Note [id number] [facility] [address] [address] 05/09/2020 00:00:00 05/09/2020 12:52:20 [id number] [facility] [address] [address] 08/09/2020 00:00:00 08/16/2020 13:01:27 [id number] [facility] [address] [address] 10/10/2020 00:00:00 10/10/2020 15:02:25 [id number] [facility] [address] [address] 02/06/2021 00:00:00 02/06/2021 15:43:17 [id number] [facility] [address] [address] 06/09/2021 00:00:00 06/09/2021 17:00:35 [id number] [facility] Internal Med [address] [facility] [place] [address] 10/08/2021 00:00:00 10/08/2021 13:42:17 [id number] [facility] [address] [facility] [place] [address] 11/13/2021 00:00:00 11/13/2021 15:41:57 [id number] [facility] Internal Med [facility] [address] [facility] [place] [address] 02/13/2022 00:00:00 02/13/2022 11:49:56 [id number] Mauri Che MD [facility] Internal Med [address] [facility] 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 [place] [address] 11/17/2022 14:22:18 11/17/2022 15:06:17 Diabetes mellitus 19242281 E11.9 advised to watch diet Essential hypertension 40904829 I10 under control Gastroesop hageal reflux disease 771922717 K21.9 stable Hyperlipidemia 24070198 E78.5 stable with meds Obesity 883956821 E66.9 advised to lose Coronary arteriosclerosis 13479282 I25.10 no symptoms Post polio myelitis syndrome 18526177 G14 in wheel chair Overactive urinary bladder 364738712 N32.81 does not want meds Vitamin D deficiency 347 52014 E55.9 otc Low back pain 041020357 M54.50 otc, tramadol prn Gout 08887157 M10.9 no flare up Osteoporosis 78465447 M8 1.0 concerned about side effects Adult [facility] examination 781421575 Z00.00 Depression screening 171 634425 Z13.31 neg Screening mammography 24 774049 Z12.31 [id number] Mauri Che MD [facility] Internal [facility] [address] [facility] [place] [address] 03/19/2023 10:02:20 03/19/2023 10:37:30 Diabetes mellitus 10405386 E11.9 advised to watch diet Essential hypertension 26916406 I10 under control Gastroesop hageal reflux disease 874221557 K21.9 stable Hyperlipidemia 51454984 E78.5 stable with meds Obesity 935721515 E66.9 advised to lose Coronary arteriosclerosis 53750560 I25.10 no symptoms Post polio myelitis syndrome 69764375 G14 in wheel chair Overactive urinary bladder 865227268 N32.81 meds help Vitamin D deficiency 347 03282 E55.9 otc Low back pain 221650323 M54.50 tramadol prn Gout 19393298 M10.9 no flare up Osteoporosis 33475501 M8 1.0 dos not want meds due to possible side effects Adult [facility] examination 053813257 Z00.00 Mammogram- 07/2021- ORDEREDCol onoscopy 2017Pap per pt years agoDexa-2DOES NOT WANT PNEUMOVAXF nara- DENIED Screening mammography 24 900264 Z12.31 was ordered, still did not get [id number] Mauri Che MD [facility] Internal [place] [facility] [place] [address] 08/18/2023 09:48:07 08/18/2023 10:27:42 Diabetes mellitus 31962935 E11.9 advised to watch diet, lose weight Essential hypertension 54293540 I10 under control Gastroesop hageal reflux disease 954431715 K21.9 stable Hyperlipidemia 81494991 E78.5 stable with meds Obesity 101756846 E66.9 advised to lose Coronary arteriosclerosis 95172982 I25.10 no symptoms Post polio myelitis syndrome 66313633 G14 in wheel chair Overactive urinary bladder 575924891 N32.81 meds help Vitamin D deficiency 347 19902 E55.9 otc Low back pain 290475189 M54.50 tramadol prn Gout 43653396 M10.9 no flare up Osteoporosis 88325638 M8 1.0 does not want meds due to possible side effects Adult heal th examination 470007120 Z00.00 Mammogram- 07/2021- ORDEREDCol onoscopy 2017Pap per pt years agoDexa-2DOES NOT WANT PNEUMOVAXF nara- DENIED Osteoarthritis 371690954 M19.90 Screening mammography 24 426212 Z12.31 was ordered, still did not get Postmenopausal state 764 95788 Z78.0 Screening for disorder 893470951 Z13.9 [id number] Mauri Che MD [facility] Internal [address] [place] [address] 09/29/2023 15:26:23 09/29/2023 16:49:59 Swelling of bilateral lower limbs 583790786 M79.89 Infection of nail 431735 000 L60.8 [id number] Mauri Che MD [facility] Internal [address] [place] [address] 11/10/2023 15:45:29 11/10/2023 16:18:39 Swelling of bilateral lower limbs 040305417 M79.89 stop amlodipine , start hydralazin e Infection of nail 066542 000 L60.8 [id number] Mauri Che MD [facility] Internal [address] [place] [address] 12/22/2023 09:41:28 12/22/2023 10:25:19 Diabetes mellitus 63046254 E11.9 advised to watch diet, lose weight Essential hypertension 17185712 I10 under control Gastroesop hageal reflux disease 685954492 K21.9 stable Hyperlipidemia 53140133 E78.5 stable with meds Obesity 979996869 E66.9 advised to lose Coronary arteriosclerosis 13186305 I25.10 no symptoms Post polio myelitis syndrome 20102217 G14 in wheel chair Overactive urinary bladder 907596807 N32.81 meds help Vitamin D deficiency 347 76505 E55.9 takes otc Low back pain 169303877 M54.50 tramadol prn Gout 01148294 M10.9 no flare up Osteoporosis 17645801 M8 1.0 does not want meds due to possible side effects Adult heal th examination 657260198 Z00.00 Mammogram- 10/06/23Co lonoscopy 2017Pap per pt years agoDexa-4DO ES NOT WANT PNEUMOVAXF nara- DECLINED- 2023 Osteoarthritis 690705091 M19.90 otctramado l prn [id number] Mauri Che MD [facility] Internal [address] [address] 01/27/2024 16:25:56 01/27/2024 17:09:07 Neck pain 97700646 M54.2 much better, stretching discussed, heating pad [id number] Mayela Solis NP [facility] Internal [address] [address] 03/07/2024 11:30:59 03/07/2024 12:14:20 Transition of care 4014498381 105 Z75.8 Osteoarthritis 594667054 M19.90 would like refill of pain meds, she has chronic arthritis and pain Health Concerns Section Related Observation LastModified by Organization Detai ls LastModified Time None Recorded Concern Status LastModified by Organization Details LastModified Time None Recorded Advance Directives Directive Y: Payers Encounter Date Sequence Insurance Name Policy Number Policy Gonzalez Covered Member ID Gonzalez Member ID Guarantor Name 09/29/2023 1 [facility] (MEDICARE REPLACEMENT/A DVANTAGE - PPO) [id number] Georgette Coreylatasha [id number] Georgette Craven 11/10/2023 1 [facility] (MEDICARE REPLACEMENT/A DVANTAGE - PPO) [id number] Georgette Coreylatasha [id number] Georgette Craven 11/10/2023 2 [place] [facility] OF PUBLIC AID Georgette Craven [id number] Georgette Craven 12/22/2023 1 [facility] (MEDICARE REPLACEMENT/A DVANTAGE - PPO) [id number] Georgette Coreylatasha [id number] Georgette Craven 12/22/2023 2 [place] [facility] Georgette Craven [id number] Georgette Craven 01/27/2024 1 [facility] (MEDICARE REPLACEMENT/A DVANTAGE - PPO) [id number] Georgette Coreylatasha [id number] Georgette Craven 01/27/2024 2 [place] [facility] Georgette Craven [id number] Georgette Craven 03/07/2024 1 [facility] (MEDICARE REPLACEMENT/A DVANTAGE - PPO) [id number] Georgette Coreylatasha [id number] Georgette Craven 03/07/2024 2 [place] [facility] Georgette Craven [id number] Georgette Craven Notes Date Note Type Note Provider Name and Address Organization Details Recorded Time 09/29/2023 text/html She is here toda y for Bilateral leg/foot swelling. She hit her left foot on her bird cage and now her big toe is swollen and the right foot has been swelling for the last 2 weeks. She has been wearing compression stockingsSHE HAD SOME BLEEDING FROM THE NAILno sob, no fever Mauri Che MD [address] [place] [address], [place] [address], [place], [address], [facility] 09/29/2023 16:41:46 11/10/2023 text/html Pt is here today for 2 different things.One- her grat toe on her left foot is infected, has been draining, toe is redand also has bilateral leg swelling that's been going on for a few month but now recently has been getting worse. Was just the lower leg that was swelling now has moved up to the upper legShe did have a Venous Doppler done 10/14/23 which was negative for blood clots. Denies any pain but states the lower right leg does ache some times Mauri Che MD [address], [place], [address], [facility] [employer] 11/10/2023 16:13:41 12/22/2023 text/html Pt is here today for her routine f/u, compliant to meds, no side effectsPT IS FASTING CAD s/p stent 2014, no symptoms, seeing cardiologyMeds- asaDM -has not been checking, watching diet, A1c- 7.5no hypoglycemiaMeds- Metformin 500 mg only once a day, gets upset stomach if takes moreHTN- on meds, under control, Amlodipine was stopped due to edemaMeds- Metoprolol 25 mg daily, Olmesartan 40 mg daily, hydralazine 50 mg bid, Spironolactone 25mg dailyGout- no recent flare ups, uric acid levels nlMeds- Allopurinol 300 mg dailyGERD- under control with meds, needs meds daily , getting EGD next monthMeds- Pantoprazole 40 mg dailyHyperlipidemia- labs goodMeds- Atorvastatin 20 mg dailyOveractive bladder- has tried oxybutynin and gemtesa, had dry mouth,Meds - MyrbetriqOsteoporosis - dexa 07/27, did not start alendronate yet, waiting to get dental w/u, discussed againPVD- on asa, no symptoms Edema- betterVit D def- Has not been taking, discussedH/o DVT , treated in the past, on asaBack pain/Shoulder pain- has seen ortho in the past, takes tramadol every night, will get #30 a month, NEEDS A REFILLPost polio syndrome, using wheel chair all the times Mauri Che MD [address], [place], [address], [employer] 12/22/2023 10:20:11 01/27/2024 text/html Pt is here today for a ER follow upShe [place] [facility] [place] for neck painCT neck showed old fusion and spinal stenosis and arthritis but told her she probably had a pulled muscle and some arthritis. Was given oxycodone and flexeril.Pt states she feels better, she has more movement than she did beforepain is better Mauri Che MD [address], [facility] [address], [place], [address], [employer] 01/27/2024 17:09:04 03/07/2024 text/html pt is here today for a hospital f/u at [facility] with a LHC on 02/28/24 bc of a mild heart attack 02/02/24 at [place]. sleep study for is scheduled 03/17/24. pt is experiencing lumbar pain onest 1wk. no injury,might of slept on it wrong while at hospital.. 4of10 pain level. tramadol at night . tramadol refill Mayela Solis NP [address], [facility] [address], [place], [address], [employer] 03/07/2024 12:30:44 OBGyn Episode No OBEpisode recorded.
--- OUTSIDE RECORDS SUMMARY | 2024-03-30 16:56 | XMS_ITS | Referral Summary ---
Author Organization [facility] Healthcare Address [address] [place] [address] Care Team Providers Care Sole Conditioner Name Role Phone Mega Che MD Primary Care Provider [phone] Encounters Date Type Department Care Team Description 02/28/2024 11:32 AM DOCK ASSOCIATE - 03/01/2024 12:04 PM DOCK ASSOCIATE Hospital Encounter [address] [address] Tomi Parham MD CHF (congestive heart failure) (CMS/HCC) (HCC) Discharge Disposition: Discharge to home or self care 02/28/2024 9:00 AM DOCK ASSOCIATE - 02/28/2024 10:30 AM [facility] Surgery [facility] Cardiac Catheterization Lab [address] [place] [address] Tomi Parham MD LEFT HEART CATHETERIZATION WITH CORONARY ANGIOGRAPHY AND WITH OR WITHOUT LEFT VENTRICULOGRAM [id number] 02/09/2024 Orders Only [facility] Cardiac Catheterization Lab [address] [place] [address] Tomi Parham MD CHF (congestive heart failure) (CMS/HCC) (HCC) (Primary Dx) 02/06/2024 Orders Only [facility] Surgery [address] [place] [address] Lela Carreno NP from Last 3 Months Allergies Active Allergy Reactions Criticality Noted Date Comments Codeine Stomach upset Low 09/15/2012 Stomach issues Medications metFORMIN (GLUCOPHAGE) 500 mg tablet take 1 Tablet by oral route every day with morning and evening meals 0 0 07/07/19 15 Active atorvastatin (LIPITOR) 20 mg tablet take 1 tablet by oral route every day 30 6 07/07/19 15 Active traMADol (ULTRAM) 50 mg tablet Take 1 tablet (50 mg total) by mouth every 6 (six) hours as needed for pain Active ergocalciferol, vitamin D2, (VITAMIN D2 ORAL) Take 1 tablet by mouth daily Active olmesartan (BENICAR) 40 mg tablet Take 1 tablet (40 mg total) by mouth daily 09/30/19 24 Active allopurinoL (ZYLOPRIM) 300 mg tablet Take 1 tablet (300 mg total) by mouth daily 10/28/[address] (PROTONIX) 40 mg EC tablet Take 1 tablet (40 mg total) by mouth daily 09/21/19 24 Active hydrALAZINE (APRESOLINE) 50 mg tablet Take 1 tablet (50 mg total) by mouth 2 (two) times a day 11/10/19 24 Active Myrbetriq 50 mg tablet extended release 24 hr Take 1 tablet (50 mg total) by mouth daily 09/28/19 24 Active ondansetron ODT (ZOFRAN-ODT) 4 mg disintegrating tablet Take 1 tablet (4 mg total) by mouth every 8 (eight) hours as needed 01/17/20 24 Active famotidine (PEPCID) 20 mg tablet Take 1 tablet (20 mg total) by mouth 2 (two) times a day 11/12/19 24 Active furosemide (LASIX) 20 mg tablet Take 1 tablet (20 mg total) by mouth 2 (two) times a day 02/10/20 24 Active magnesium oxide (MAG-OX) 400 mg (241.3 mg elemental magnesium) tabletIndications: hypomagnesemia Take 1 tablet (400 mg total) by mouth 2 (two) times a day 60 tablet 11 03/01/20 24 025 Active spironolactone (ALDACTONE) 25 mg tablet Take 0.5 tablets (12.5 mg total) by mouth daily 30 tablet 2 03/01/20 24 Active metoprolol XL (TOPROL-XL) 50 mg extended release tablet Take 1 tablet (50 mg total) by mouth daily 30 tablet 2 03/01/20 24 Active amLODIPine (NORVASC) 5 mg tablet Take 0.5 tablets (2.5 mg total) by mouth daily 30 tablet 2 03/01/20 Active spironolactone (ALDACTONE) 25 mg tablet Take 1 tablet (25 mg total) by mouth daily Discontinued metoprolol XL (TOPROL-XL) 100 mg 24 hr tablet Take 1 tablet (100 mg total) by mouth daily 10/31/19 Discontinued amLODIPine (NORVASC) 5 mg tablet Take 1 tablet (5 mg total) by mouth daily 12/10/19 Discontinued Active Problems Problem Noted Date Diagnosed Date CAD (coronary artery disease) 02/28/2024 CHF (congestive heart failure) (CMS/[facility]) Coronary artery disease invo lving [place] coronary artery of [place] heart without angina pectoris 12/15/2016 Cardiomyopathy, ischemic 12/15/2016 History of coronary artery stent placement 12/15 Social History Tobacco Use Types Packs/Day Years Used Date Smoking Tobacco: Never Smokeless Tobacco: Never Tobacco Cessation:Counseling Given: Yes Alcohol Use Standard Drinks/Week Comments No 0 (1 standard drink = 0.6 oz pur e alcohol) [facility] DosYoguresities Answer Date Recorded In the past 12 months has [place], gas, oil, or water [employer] threatened to shut off services in your home? No 02/29/2024 Social Connection and Isolat ion Panel [NHANES] Answer Date Recorded In a typical week, how many times do you talk on the phone with family, friends, or neighbors? More than three times a week 02/29/2024 How often do you get togethe r with friends or relatives? More than three times a week 02/29/2024 How often do you attend chur or anabaptist services? Never 02/29/2024 Do you belong to any clubs o r organizations such as rastafarian groups, unions, fraternal or athletic groups, or school groups? No 02/29/2024 How often do you attend meet ings of the clubs or organizations you belong to? Never 02/29/2024 Are you , , di vorced, , never , or living with a partner? 02/29/2024 AUDIT-C Answer Date Recorded Q1: How often do you have a drink containing alcohol? Never 02/28/2024 Q2: How many drinks containi ng alcohol do you have on a typical day when you are drinking? Patient does not drink Q3: How often do you have si x or more drinks on one occasion? Never 02/28/2024 Overall Financial Resource Strain (CARDIA) Answe r Date Recorded How hard is it for you to pa y for the very basics like food, housing, medical care, and heating? Not hard at all 02/29/2024 Hunger Vital Sign Answer Date Recorded Within the past 12 months, y ou worried that your food would run out before you got the money to buy more. Never true 02/29/20 24 Within the past 12 months, t he food you bought just didn't last and you didn't have money to get more. Never true 02/29/2024 PRAPARE - Transportation Answer Date Re corded In the past 12 months, has l ack of transportation kept you from medical appointments or from getting medications? No 02/06 In the past 12 months, has l ack of transportation kept you from meetings, work, or from getting things needed for daily living? No 02/29/2024 Housing Stability Vital Sign Answer Pradeep e Recorded In the last 12 months, was t here a time when you were not able to pay the mortgage or rent on time? No 02/29/2024 In the past 12 months, how m any times have you moved where you were living? 0 02/29/2024 At any time in the past 12 m [facility], were you homeless or living in a usp (including now)? No 02/29/2024 Personal Safety Answer Date Recorded Have you ever been in or are you currently in a harmful physical or emotional relationship or is someone making you feel afraid or unsafe? Denies 02/28/2024 Comments Unknown Sex and Gender Information Value Date Recorded Sex Assigned at Not on file Legal Sex Female 12:09 AM DOCK ASSOCIATE Gender Identity Not on file Sexual Orientation Not on file Last Filed Vital Signs Vital Sign Reading Time Taken Comments Blood Pressure 145/57 03/01/2024 7:37 AM DOCK ASSOCIATE Pulse 76 03/01/2024 8:00 AM DOCK ASSOCIATE Temperature 36.5 ??C (97.7 ??F) 03/01/2024 7:37 AM CS T Respiratory Rate 17 03/01/2024 7:37 AM DOCK ASSOCIATE Oxygen Saturation 98% 03/01/2024 7:37 AM DOCK ASSOCIATE Inhaled Oxygen Concentration - - Weight 86.3 kg (190 lb 4.1 oz) 03/01/2024 5:31 AM DOCK ASSOCIATE Height 152.4 cm (5') 02/28/2024 6:48 AM DOCK ASSOCIATE Body Mass Index 37.16 02/28/2024 6:48 AM DOCK ASSOCIATE Plan of Treatment Not on file Procedures Procedure Name Priority Date/Time Associated Diagnosis Comments MAGNESIUM Add-On 03/01/2024 9:37 AM DOCK ASSOCIATE POCT GLUCOSE DEVICE Routine 03/01/2024 7 :51 AM DOCK ASSOCIATE EGFR Routine 03/01/2024 3:04 AM DOCK ASSOCIATE BASIC METABOLIC PANEL Routine 03/01/2024 3:04 AM DOCK ASSOCIATE POCT GLUCOSE DEVICE Routine 02/29/2024 7 :59 PM DOCK ASSOCIATE POCT GLUCOSE DEVICE Routine 02/29/2024 4 :58 PM DOCK ASSOCIATE EGFR STAT 02/29/2024 11:54 AM DOCK ASSOCIATE BASIC METABOLIC PANEL STAT 02/29/2024 11:54 AM DOCK ASSOCIATE MAGNESIUM Timed 02/29/2024 11:49 AM DOCK ASSOCIATE HEMOGLOBIN AND HEMATOCRIT Timed 02/29/2024 11:49 AM DOCK ASSOCIATE POCT GLUCOSE DEVICE Routine 02/29/2024 1 1:40 AM DOCK ASSOCIATE POCT GLUCOSE DEVICE Routine 02/29/2024 7 :55 AM DOCK ASSOCIATE EGFR Routine 02/29/2024 2:59 AM DOCK ASSOCIATE MAGNESIUM Routine 02/29/2024 2:59 AM DOCK ASSOCIATE BASIC METABOLIC PANEL Routine 02/29/2024 2:59 AM DOCK ASSOCIATE POCT GLUCOSE DEVICE Routine 02/28/2024 8 :58 PM DOCK ASSOCIATE POCT GLUCOSE DEVICE Routine 02/28/2024 4 :59 PM DOCK ASSOCIATE POCT GLUCOSE DEVICE Routine 02/28/2024 1 1:07 AM DOCK ASSOCIATE LEFT HEART CATHETERIZATION WITH CORONARY ANGIOGRAPHY AND WITH AND WITHOUT LEFT VENTRICULOGRAM Routine 02/28/2024 10:41 AM DOCK ASSOCIATE CHF (congestive heart failure) (CMS/HCC) (HCC) POCT GLUCOSE DEVICE Routine 02/28/2024 6 :52 AM DOCK ASSOCIATE from Last 3 Months Results * Magnesium (03/01/2024 9:37 AM DOCK ASSOCIATE) Magnesium 1.7 1.4 - 2.5 mg/dL Blood 03/01/2024 9:37 AM DOCK ASSOCIATE 03/01/2024 9:57 AM DOCK ASSOCIATE us Suyapa Quiles NP LAB BLOOD ORDERABLES F inal Result Performing Organization Address [facility] Co de Phone Number DIANDRA TANESHA [phone] Department [employer] [place], [place] [id number] * POCT glucose (03/01/2024 7:51 AM DOCK ASSOCIATE) Pathologist [facility] Glucose, POC 158 70 - 199 mg/dL Blood 03/01/2024 7:51 AM DOCK ASSOCIATE 03/01/2024 7:51 AM DOCK ASSOCIATE us Tomi Parham MD LAB POCT ORDERABLES - DEVICE Final Result Performing Organization Address City/[facility]/ZIP Co de Phone Number DIANDRA TANESHA [phone] [address] Department of [employer] [place], [place] [phone] * eGFR (03/01/2024 3:04 AM DOCK ASSOCIATE) eGFR >90 >=60 mL/min/1. 73 m2 Comment: Interpretive Data Reference Interval Normal ?>/= 90 mL/min/1.73m2 Mildly decreased* ? 60 - 89 mL/min/1.73m2 Mildly to moderately decreased ?45 - 59 mL/min/1.73m2 Moderately to severely decreased ??30 - 44 mL/min/1.73m2 Severely decreased ?15 - 29 mL/min/1.73m2 Kidney Failure ?< 15 ??mL/min/1.73m2 *Relative to young adult level Estimated glomerular filtration rate is determined by the 2020 CKD-EPI equation recommended by the National Kidney Foundation (A Unifying Approach to GFR Estimation: Recommendations of the NKF-ASK Task Force on Reassessing the Inclusion of Race in Diagnosing Kidney Disease, JASN 2020). The CKD-EPI equation should not be used for patients with unstable renal function and has not been validated in children and those over 70. Current interpretive data was last reviewed 2021. Blood 03/01/2024 3:04 AM DOCK ASSOCIATE 03/01/2024 3:23 AM DOCK ASSOCIATE Tomi Parham MD LAB BLOOD ORDERABLES F inal Result [facility] [address] [address] [place] [address] * (ABNORMAL) Basic metabolic panel (03/01/2024 3:04 AM DOCK ASSOCIATE) Sodium 141 135 - 145 mmol/L Potassium, pl 3.7 3.3 - 4.9 mmol/L [facility] Chloride 104 97 - 110 mmol/L [facility] CO2 27 22 - 32 mmol/L [facility] Anion gap 10 2 - 15 mmol/L [facility] BUN 15 6 - 25 mg/dL [facility] Creatinine 0.47(L) 0.60 - 1.10 mg/dL [facility] Glucose 143 70 - 199 mg/dL [facility] Comment: Interpretive Data Fasting glucose >/= 126 mg/dl is diagnostic for diabetes. ?? Fasting is defined as no caloric intake for at least 8 hours. Fasting glucose between 100 mg/dl to 125 mg/dl is diagnostic of prediabetes. In a patient with classic symptoms of hyperglycemia or hyperglycemic crisis, a random glucose >/= 200 mg/dl is diagnostic for diabetes. In the absence of unequivocal hyperglycemia, results should be confirmed by repeat testing. The classification and Diagnosis of Diabetes Diabetes Care 2021; 46: S19-S40. Current interpretive data was last revised 2022. Calcium 8.6 8.5 - 10.3 mg/dL [facility] Blood 03/01/2024 3:04 AM DOCK ASSOCIATE 03/01/2024 3:23 AM DOCK ASSOCIATE Tomi Parham MD LAB BLOOD ORDERABLES F inal Result Performing Organization Address [facility] Co de Phone Number [facility] [address] [place] [address] * POCT glucose (02/29/2024 7:59 PM DOCK ASSOCIATE) Glucose, POC 167 70 - 199 mg/dL Blood 02/29/2024 7:59 PM DOCK ASSOCIATE 02/29/2024 7:59 PM DOCK ASSOCIATE Tomi Parham MD LAB POCT ORDERABLES - DEVICE Final Result Performing Organization Address [facility] Co de Phone Number [facility] [address] [address] [facility] [place] [employer] [place] [place] [address] * POCT glucose (02/29/2024 4:58 PM DOCK ASSOCIATE) Glucose, POC 92 70 - 199 mg/dL Blood 02/29/2024 4:58 PM DOCK ASSOCIATE 02/29/2024 4:58 PM DOCK ASSOCIATE Tomi Parham MD LAB POCT ORDERABLES - DEVICE Final Result Performing Organization Address [facility] Co de Phone Number DIANDRA ALMENDAREZ [phone] [address] Department [place] [employer] [place] [place] [address] * eGFR (02/29/2024 11:54 AM DOCK ASSOCIATE) eGFR >90 >=60 mL/min/1. 73 m2 Comment: Interpretive Data Reference Interval Normal ?>/= 90 mL/min/1.73m2 Mildly decreased* ? 60 - 89 mL/min/1.73m2 Mildly to moderately decreased ?45 - 59 mL/min/1.73m2 Moderately to severely decreased ??30 - 44 mL/min/1.73m2 Severely decreased ?15 - 29 mL/min/1.73m2 Kidney Failure ?< 15 ??mL/min/1.73m2 *Relative to young adult level Estimated glomerular filtration rate is determined by the 2020 CKD-EPI equation recommended by the National Kidney Foundation (A Unifying Approach to GFR Estimation: Recommendations of the NKF-ASK Task Force on Reassessing the Inclusion of Race in Diagnosing Kidney Disease, JASN 2020). The CKD-EPI equation should not be used for patients with unstable renal function and has not been validated in children and those over 70. Current interpretive data was last reviewed 2021. Blood 02/29/2024 11:5 4 AM DOCK ASSOCIATE 02/29/2024 1:08 PM DOCK ASSOCIATE Lela Infante NP LAB BLOOD ORDERABLES Steffany l Result Performing Organization Address [facility]/[place] [address] [address] Department of Laboratories [place], [place] [phone] * (ABNORMAL) Basic metabolic panel (02/29/2024 11:54 AM DOCK ASSOCIATE) Sodium 139 135 - 145 mmol/L Potassium, pl 3.6 3.3 - 4.9 mmol/L [facility] Chloride 99 97 - 110 mmol/L [facility] CO2 25 22 - 32 mmol/L [facility] Anion gap 15 2 - 15 mmol/L [facility] BUN 15 6 - 25 mg/dL [facility] Creatinine 0.39(L) 0.60 - 1.10 mg/dL [facility] Glucose 233(H) 70 - 199 mg/dL [facility] Comment: Interpretive Data Fasting glucose >/= 126 mg/dl is diagnostic for diabetes. ?? Fasting is defined as no caloric intake for at least 8 hours. Fasting glucose between 100 mg/dl to 125 mg/dl is diagnostic of prediabetes. In a patient with classic symptoms of hyperglycemia or hyperglycemic crisis, a random glucose >/= 200 mg/dl is diagnostic for diabetes. In the absence of unequivocal hyperglycemia, results should be confirmed by repeat testing. The classification and Diagnosis of Diabetes Diabetes Care 2021; 46: S19-S40. Current interpretive data was last revised 2022. Calcium 8.9 8.5 - 10.3 mg/dL [facility] Blood 02/29/2024 11:5 4 AM DOCK ASSOCIATE 02/29/2024 1:08 PM DOCK ASSOCIATE Lela Infante NP LAB BLOOD ORDERABLES Steffany l Result Performing Organization Address City/[facility]/ZIP Co de Phone Number [facility] [address] [address] [place] [address] * (ABNORMAL) Hemoglobin and hematocrit (02/29/2024 11:49 AM DOCK ASSOCIATE) Hgb 11.7(L) 11.9 - 15.5 g/dL Hct 37.6 35.6 - 45.5 % [facility] Blood 02/29/2024 11:4 9 AM DOCK ASSOCIATE 02/29/2024 1:11 PM DOCK ASSOCIATE Lela Infante NP LAB BLOOD ORDERABLES Steffany l Result [facility] [address] [address] [facility] [place] [place] [address] * Magnesium (02/29/2024 11:49 AM DOCK ASSOCIATE) Pathologist [facility] Magnesium 2.2 1.4 - 2.5 mg/dL Blood 02/29/2024 11:4 9 AM DOCK ASSOCIATE 02/29/2024 1:08 PM DOCK ASSOCIATE Lela Infante SYSTEMS TEST TECHNICIAN LAB BLOOD ORDERABLES Steffany l Result Performing Organization Address [facility] Co de Phone Number DIANDRA [phone] [address] [place] [address] * (ABNORMAL) POCT glucose (02/29/2024 11:40 AM DOCK ASSOCIATE) Pathologist [facility] Glucose, POC 249(H) 70 - 199 mg/dL Blood 02/29/2024 11:4 0 AM DOCK ASSOCIATE 02/29/2024 11:40 AM DOCK ASSOCIATE Tomi Parham MD LAB POCT ORDERABLES - DEVICE Final Result Performing Organization Address [facility] Co de Phone Number DIANDRA [address] [address] [place] [place] [address] * POCT glucose (02/29/2024 7:55 AM DOCK ASSOCIATE) Pathologist [facility] Glucose, POC 134 70 - 199 mg/dL Blood 02/29/2024 7:55 AM DOCK ASSOCIATE 02/29/2024 7:55 AM DOCK ASSOCIATE Tomi Parham MD LAB POCT ORDERABLES - DEVICE Final Result Performing Organization Address [facility] Co de Phone Number DIANDRA [address] [address] [facility] [employer] [place] [address] * eGFR (02/29/2024 2:59 AM DOCK ASSOCIATE) Pathologist [facility] eGFR >90 >=60 mL/min/1. 73 m2 Comment: Interpretive Data Reference Interval Normal ?>/= 90 mL/min/1.73m2 Mildly decreased* ? 60 - 89 mL/min/1.73m2 Mildly to moderately decreased ?45 - 59 mL/min/1.73m2 Moderately to severely decreased ??30 - 44 mL/min/1.73m2 Severely decreased ?15 - 29 mL/min/1.73m2 Kidney Failure ?< 15 ??mL/min/1.73m2 *Relative to young adult level Estimated glomerular filtration rate is determined by the 2020 CKD-EPI equation recommended by the National Kidney Foundation (A Unifying Approach to GFR Estimation: Recommendations of the NKF-ASK Task Force on Reassessing the Inclusion of Race in Diagnosing Kidney Disease, JASN 2020). The CKD-EPI equation should not be used for patients with unstable renal function and has not been validated in children and those over 70. Current interpretive data was last reviewed 2021. Blood 02/29/2024 2:59 AM DOCK ASSOCIATE 02/29/2024 3:23 AM DOCK ASSOCIATE Tomi Parham MD LAB BLOOD ORDERABLES F inal Result Performing Organization Address [facility] Co de Phone Number [facility] [address] [address] [place] [address] * (ABNORMAL) Magnesium (02/29/2024 2:59 AM DOCK ASSOCIATE) Magnesium 1.2(L) 1.4 - 2.5 mg/dL Blood 02/29/2024 2:59 AM DOCK ASSOCIATE 02/29/2024 3:23 AM DOCK ASSOCIATE Tomi Parham MD LAB BLOOD ORDERABLES F inal Result Performing Organization Address City/[facility] Co de Phone Number DIANDRA ALMENDAREZ [address] Department [place] [address] * (ABNORMAL) Basic metabolic panel (02/29/2024 2:59 AM DOCK ASSOCIATE) Sodium 139 135 - 145 mmol/L Potassium, pl 3.9 3.3 - 4.9 mmol/L [facility] Chloride 101 97 - 110 mmol/L [facility] CO2 28 22 - 32 mmol/L [facility] Anion gap 10 2 - 15 mmol/L [facility] BUN 17 6 - 25 mg/dL [facility] Creatinine 0.48(L) 0.60 - 1.10 mg/dL [facility] Glucose 123 70 - 199 mg/dL [facility] Comment: Interpretive Data Fasting glucose >/= 126 mg/dl is diagnostic for diabetes. ?? Fasting is defined as no caloric intake for at least 8 hours. Fasting glucose between 100 mg/dl to 125 mg/dl is diagnostic of prediabetes. In a patient with classic symptoms of hyperglycemia or hyperglycemic crisis, a random glucose >/= 200 mg/dl is diagnostic for diabetes. In the absence of unequivocal hyperglycemia, results should be confirmed by repeat testing. The classification and Diagnosis of Diabetes Diabetes Care 2021; 46: S19-S40. Current interpretive data was last revised 2022. Calcium 8.7 8.5 - 10.3 mg/dL [facility] Blood 02/29/2024 2:59 AM DOCK ASSOCIATE 02/29/2024 3:23 AM DOCK ASSOCIATE Tomi Parham MD LAB BLOOD ORDERABLES F inal Result DIANDRA ALMENDAREZ [address] Department [place] [address] * POCT glucose (02/28/2024 8:58 PM DOCK ASSOCIATE) Glucose, POC 185 70 - 199 mg/dL Blood 02/28/2024 8:58 PM DOCK ASSOCIATE 02/28/2024 8:58 PM DOCK ASSOCIATE Tomi Parham MD LAB POCT ORDERABLES - DEVICE Final Result Performing Organization Address [facility]/ZIP Co de Phone Number DIANDRA ALMENDAREZ [phone] [address] [facility] [employer] [place], [place] [phone] * POCT glucose (02/28/2024 4:59 PM DOCK ASSOCIATE) Glucose, POC 165 70 - 199 mg/dL Blood 02/28/2024 4:59 PM DOCK ASSOCIATE 02/28/2024 4:59 PM DOCK ASSOCIATE Tomi Parham MD LAB POCT ORDERABLES - DEVICE Final Result Performing Organization Address [facility] Co de Phone Number DIANDRA ALMENDAREZ [address] [address] [facility] [place] [address] * POCT glucose (02/28/2024 11:07 AM DOCK ASSOCIATE) Glucose, POC 127 70 - 199 mg/dL Blood 02/28/2024 11:0 7 AM DOCK ASSOCIATE 02/28/2024 11:07 AM DOCK ASSOCIATE Tomi Parham MD LAB POCT ORDERABLES - DEVICE Final Result Performing Organization Address [facility] Co de Phone Number DIANDRA ALMENDAREZ [address] [address] [place] [address] * POCT glucose (02/28/2024 6:52 AM DOCK ASSOCIATE) Glucose, POC 143 70 - 199 mg/dL Blood 02/28/2024 6:52 AM DOCK ASSOCIATE 02/28/2024 6:52 AM DOCK ASSOCIATE Tomi Parham MD LAB POCT ORDERABLES - DEVICE Final Result Performing Organization Address [facility] Co de Phone Number DIANDRA ALMENDAREZ [address] [address] [facility] [place] [address] from Last 3 Months Insurance [facility] MEDICARE [employer] IDPA Advance Directives For more information, please contact: [phone] * Full Code (Latest Code Status on File) Date Activated Date Inactivated Comments 02/28/2024 11:33 AM 03/01/2024 4:04 PM Care Teams Sole Conditioner Relationship Specialty Start Date End Date Mega Che MD [phone] (work) PCP - General 06/09/16
--- OUTSIDE RECORDS SUMMARY | 2024-03-30 16:56 | XMS_ITS | CONTINUITY OF CARE DOCUMENT ---
Author Name bhavna philippdavina Address Unknown Organization [facility] Address [id number] [place] [address] [address] [place] [address] Phone [phone] Care Team Providers Care Boat Wrapper Name Role Phone Tomi Parham MD Unavailable Mega Che MD Unavailable [phone] Mega Che MD Unavailable PROBLEMS Condition Status Date Provider Notes Cardiology examination active Juliano fang CHF - diastolic active Juliano Man Myocardial Infarction active Juliano Cornejo ch (History of) Hypertension active Juliano Man Hyperlipidemia active Juliano Man Diabetes, Type 2 active Juliano Man Coronary Heart Disease active Juliano fang ENCOUNTERS Date Type Provider Location Encounter Diag nosis - In-person encounter Office Visit Tomi Parham MD [facility] - In-person encounter Office Visit Tomi Parham MD [facility] Cardiology examinationCoronary Heart DiseaseDiabetes, Type 2HyperlipidemiaHypertensio nMyocardial InfarctionCHF - diastolic VITAL SIGNS Date Observation Value Provider Body Mass Index (Ratio) 35.35 kg/m2 Kerwin Man blood pressure, diastolic 70 mm[Hg] Radha Barth blood pressure, systolic 122 mm[Hg] Leslie Barth oxygen saturation, oximetry 98 % Ninfa Bowie pulse rate 76 /min Ninfa Bowie respiratory rate E&M 12 /min Ninfa Bowie weight E&M 181 [lb_av] Ninfa Barth height E&M 60 [in_i] Ninfa Barth blood pressure, cuff size regular Radha hdz Barth blood pressure, diastolic 61 mm[Hg] Shar Stevensoning blood pressure, systolic 135 mm[Hg] Marina bolton Byars oxygen saturation, oximetry 97 % Karlene Stevensoning pulse rate 76 /min Karlene Stevensoning blood pressure, cuff size regular Shar forrester Chun height E&M 60 [in_i] Karlene Chun ALLERGIES Allergy Name Onset Date Reaction Criticality Status CODEINE High Criticality active HISTORY OF MEDICATION USE Medication Status Instructions Dates Provider Indications Com ments Jardiance 10 mg tablet active TAKE 1 TABLET BY MOUTH EVERY DAY 7 Tomi Parham MD furosemide 20 mg tablet completed TAKE 1 TABLET BY MOUTH TWICE A DAY - 5 Maya Isac furosemide 20 mg tablet active Take 1 tablet by mouth once a day 5 Maya Isac furosemide 20 mg tablet completed TAKE 1 TABLET BY MOUTH TWICE A DAY FOR THE NEXT 7 DAYS 4 - 5 Maya Chau amlodipine 5 mg tablet active Karlene Chun atorvastatin 20 mg tablet active Karlene Chun Myrbetriq 50 mg tablet extended release 24 hr completed - 4 Tomi Parham MD olmesartan 40 mg tablet active Karlene Chun allopurinol 300 mg tablet completed - 4 Tomi Parham MD pantoprazole 40 mg tablet,delayed release (DR/EC) active Karlene Chun spironolactone 25 mg tablet active Karlene Chun metoprolol succinate 100 mg tablet extended release 24 hr active Karlene hCun metformin (Glucophage XR) 500 mg tablet extended release 24 hr completed - 4 Tomi Parham MD tramadol 50 mg tablet active Karlene Chun hydralazine 50 mg tablet active Karlene Chun Myrbetriq 50 mg tablet extended release 24 hr active Karlene Chun allopurinol 300 mg tablet active Karlene Chun olmesartan 40 mg tablet completed - 4 Tomi Parham MD pantoprazole 40 mg tablet,delayed release (DR/EC) completed - 4 Tomi Parham MD spironolactone 25 mg tablet completed - 4 Tomi Parham MD metoprolol succinate 100 mg tablet extended release 24 hr completed - 4 Tomi Parham MD metformin (Glucophage XR) 500 mg tablet extended release 24 hr active Karlene Chun hydralazine 50 mg tablet completed - 4 Tomi Parham MD amlodipine 5 mg tablet completed - 4 Tomi Parham MD tramadol 50 mg tablet completed - 4 Tomi Parham MD atorvastatin 20 mg tablet completed - 4 Tomi Parham MD SOCIAL HISTORY Date Observation Value Provider quit smoking, stage not documented Joshua Parham MD smoking/tobacco cess ation, patient education and counseling yes Tomi Parham MD smoking status Current every day smoker S seema Parham MD INSURANCE PROVIDERS Payer name Policy type / Coverage type Bradley red republican [employer] [facility] [facility] Medicaid 1 [id number] [facility]-[id number] (PPO C-SNP) Commercial insurance company [id number] ADVANCE DIRECTIVES Name Date DISCUSSED - NO DECISION MADE TREATMENT PLAN Date Name Performer Cardiology: H er updated medication list for this problem includes: Atorvastatin 20 Mg Tablet (Atorvastatin) Tomi Parham MD Cardiology: s violeta for cath, she had NSTEMI March 03, 2024 c ath showed patent LAD stent minimal CAD. done at [facility] 02/28/24. Elevated LVEDP. Tomi Parham MD Cardiology:high susp icion for diastolic CHF at jardiance 10. H er updated medication list for this problem includes: Furosemide 20 Mg Tablet (Furosemide) ..... Take 1 tablet by mouth twice a day for 7 days Amlodipine 5 Mg Tablet (Amlodipine) Olmesartan 40 Mg Tablet (Olmesartan) Spironolactone 25 Mg Tablet (Spironolactone) Metoprolol Succinate 100 Mg Tablet Extended Release 24 Hr (Metoprolol succinate) Tomi Parham MD Cardiology[RxRsp]:St ent to LAD 2.75 x 20 mm promus premier in 2014 Tomi Parham MD Cardiology[RxRsp]: T he following medications were removed from the medication list: Atorvastatin 20 Mg Tablet (Atorvastatin) Her updated medication list for this problem includes: Atorvastatin 20 Mg Tablet (Atorvastatin) Tomi Parham MD Cardiology[RxRsp]: T he following medications were removed from the medication list: Olmesartan 40 Mg Tablet (Olmesartan) Metformin (glucophage Xr) 500 Mg Tablet Extended Release 24 Hr (Metformin (glucophage xr)) Her updated medication list for this problem includes: Olmesartan 40 Mg Tablet (Olmesartan) Metformin (glucophage Xr) 500 Mg Tablet Extended Release 24 Hr (Metformin (glucophage xr)) Tomi Parham MD Cardiology[RxRsp]:Sh ning is grossly neglegent in her diet, eats ramen noodles, CHF exaserabtion due to salt intake Tomi Parham MD Cardiology[RxRsp]:schedule for c ath, she had NSTEMI Tomi Parham MD Date Name Auto-CPAP 6cm H2O -1 8cm H2O Sleep Study Home LIPID PANEL COMPREHENSIVE METABO LIC PANEL, W/EGFR HISTORY OF PROCEDURES Procedure Date Procedure Name Provider Procedure Notes S tatus Complex e/m visit add on Tomi Parham MD completed HERMINIA Parham MD compl eted HERMINIA Parham MD compl eted
--- OUTSIDE RECORDS SUMMARY | 2024-03-30 16:56 | XMS_ITS | Clinical Summary ---
Author Organization [facility] Address [address] [place] [address] Care Team Providers Care Clerical Assistant Name Role Phone Mega Che MD Primary Care Provider Allergies Active Allergy Reactions Criticality Noted Date [...] every 8 (eight) hours as needed 01/17/20 Active famotidine (PEPCID) 20 mg tablet Take [...] daily 30 tablet 2 03/01/20 24 Active spironolactone (ALDACTONE) 25 mg tablet Take 1 tablet (25 mg total) by mouth daily 024 Discontinued metoprolol XL (TOPROL-XL) 100 mg 24 hr tablet Take 1 tablet (100 mg total) by mouth daily 10/31/19 24 024 Discontinued amLODIPine (NORVASC) 5 mg tablet Take 1 tablet (5 mg total) by mouth daily 12/10/19 24 024 Discontinued Active Problems Problem Noted Date Diagnosed Date CAD (coronary artery disease) 02/28/2024 CHF (congestive heart failure) ([facility]) 024 Coronary artery disease invo lving grand traverse coronary artery of [place] traverse heart without angina pectoris 12/15/2016 Cardiomyopathy, ischemic 12/15/2016 History of coronary artery stent placement 12/15 Encounters Date Type Department Care Team Description 02/28/2024 11:32 AM HOUSEFELLOW - 03/01/2024 12:04 PM HOUSEFELLOW [place] [address] Tomi Parham MD CHF (congestive heart failure) ([facility]) ([facility]) Discharge Disposition: Discharge to home or self care 02/28/2024 9:00 AM HOUSEFELLOW - 02/28/2024 10:30 AM HOUSEFELLOW Surgery [facility] Cardiac Catheterization Lab [id number] [place] [address] Tomi Parham MD LEFT HEART CATHETERIZATION WITH CORONARY ANGIOGRAPHY AND WITH OR WITHOUT LEFT VENTRICULOGRAM [address] 02/09/2024 Orders Only [facility] Cardiac Catheterization Lab [address] [place] [id number] Tomi Parham MD CHF (congestive heart failure) (CMS/HCC) ([facility]) (Primary Dx) 02/06/2024 Orders Only [facility] Surgery [address] [place] [address] Lela Carreno NP from Last 3 Months Surgical History Surgery Date Site/Laterality Comments CHOLECYSTECTOMY Cholecystectomy APPENDECTOMY HYSTERECTOMY CARPAL TUNNEL RELEASE Medical History Medical History Date Comments Chronic coronary artery disease Coronary artery disease Hypertension Hypertension Gastroesophageal reflux disease GERD Hx Other Medical history polio; Comments: [facility] 07/06/2014 -paralyzed waist down Hx Other Medical osteoarthritis; Comments: [facility] 07/06/2014 - Hx Other Medical history DVT; Co mments: [facility] 07/06/2014 - Hyperlipidemia CHF (congestive heart failur e) ([facility]) ([facility]) Electric wheelchair dependence Type 2 diabetes mellitus ([facility]) Family History Medical History Relation Name Comments Heart attack Brother 2 Myocardial infa rction; Cause of : Myocardial infarction Heart failure Brother 3 Congestive hea rt failure; Heart attack Father Myocardial infa rction; Cause of : Myocardial infarction Other Mother Unknown; Cause of : Unknown Relation Name Status Comments Brother 1 Brother 2 Brother 3 Father Mother Social History Tobacco Use Types Packs/Day Years Used Date Smoking Tobacco: Never Smokeless Tobacco: Never Tobacco Cessation:Counseling Given: Yes Alcohol Use Standard Drinks/Week Comments No 0 (1 standard drink = 0.6 oz pur e alcohol) [facility] Utilities Answer Date Recorded In the past 12 months has e electric, gas, oil, or water company threatened to shut off services in your [...] 02/29/2024 How often do you attend chur ch or latter-day services? Never 02/29/2024 Do you belong to any clubs o r organizations such as muslim groups, unions, fraternal or athletic groups, or [...] any time in the past 12 m [facility], were you homeless or living in a senior living (including now)? No 02/29/2024 Personal Safety Answer Date Recorded Have you ever been in or are you currently in a harmful physical or emotional relationship or is someone making you feel afraid or unsafe? Denies 02/28/2024 Comments Unknown Sex and Gender Information Value Date Recorded Sex Assigned at Not on file Legal Sex Female 12:09 AM HOUSEFELLOW Gender Identity Not on file Sexual Orientation Not on file Obstetrics History Last Filed Vital Signs Vital Sign Reading Time Taken Comments Blood Pressure 145/57 03/01/2024 7:37 AM HOUSEFELLOW Pulse 76 03/01/2024 8:00 AM HOUSEFELLOW Temperature 36.5 ??C (97.7 ??F) 03/01/2024 7:37 AM CS T Respiratory Rate 17 03/01/2024 7:37 AM HOUSEFELLOW Oxygen Saturation 98% 03/01/2024 7:37 AM HOUSEFELLOW Inhaled Oxygen Concentration - - Weight 86.3 kg (190 lb 4.1 oz) 03/01/2024 5:31 A M HOUSEFELLOW Height 152.4 cm (5') 02/28/2024 6:48 AM HOUSEFELLOW Body Mass Index 37.16 02/28/2024 6:48 AM HOUSEFELLOW Plan of Treatment Health Maintenance Due Date Last Done Comments Depression Screening 1945 Hepatitis C Screening 1945 Osteoporosis Screening-Bone Density Scan 1945 DTaP/Tdap/Td Vaccine (1 - Tdap) 1957 Hepatitis B Screening 1964 Zoster Vaccine (1 of 2) 1996 Pneumococcal vaccine 65+ (1 of 1 - PCV) 09/26/2011 Well Visit 65+ 09/26/2011 Influenza Vaccine (#1) 2023 Fall Risk Assessment 03/01/2025 03/01/2024 Procedures Procedure Name Priority Date/Time Associated Diagnosis Comments MAGNESIUM Add-On 03/01/2024 9:37 AM HOUSEFELLOW POCT GLUCOSE DEVICE Routine 03/01/2024 7 :51 AM HOUSEFELLOW EGFR Routine 03/01/2024 3:04 AM HOUSEFELLOW BASIC METABOLIC PANEL Routine 03/01/2024 3:04 AM HOUSEFELLOW POCT GLUCOSE DEVICE Routine 02/29/2024 7 :59 PM HOUSEFELLOW POCT GLUCOSE DEVICE Routine 02/29/2024 4 :58 PM HOUSEFELLOW EGFR STAT 02/29/2024 11:54 AM HOUSEFELLOW BASIC METABOLIC PANEL STAT 02/29/2024 11:54 AM HOUSEFELLOW MAGNESIUM Timed 02/29/2024 11:49 AM HOUSEFELLOW HEMOGLOBIN AND HEMATOCRIT Timed 02/29/2024 11:49 AM HOUSEFELLOW POCT GLUCOSE DEVICE Routine 02/29/2024 1 1:40 AM HOUSEFELLOW POCT GLUCOSE DEVICE Routine 02/29/2024 7 :55 AM HOUSEFELLOW EGFR Routine 02/29/2024 2:59 AM HOUSEFELLOW MAGNESIUM Routine 02/29/2024 2:59 AM HOUSEFELLOW BASIC METABOLIC PANEL Routine 02/29/2024 2:59 AM HOUSEFELLOW POCT GLUCOSE DEVICE Routine 02/28/2024 8 :58 PM HOUSEFELLOW POCT GLUCOSE DEVICE Routine 02/28/2024 4 :59 PM HOUSEFELLOW POCT GLUCOSE DEVICE Routine 02/28/2024 1 1:07 AM HOUSEFELLOW LEFT HEART CATHETERIZATION WITH CORONARY ANGIOGRAPHY AND WITH AND WITHOUT LEFT VENTRICULOGRAM Routine 02/28/2024 10:41 AM HOUSEFELLOW CHF (congestive heart failure) (CMS/HCC) ([facility]) POCT GLUCOSE DEVICE Routine 02/28/2024 6 :52 AM HOUSEFELLOW from Last 3 Months Results * Magnesium (03/01/2024 9:37 AM HOUSEFELLOW) Pathologist [facility] Magnesium 1.7 1.4 - 2.5 mg/dL Blood 03/01/2024 9:37 AM HOUSEFELLOW 03/01/2024 9:57 AM HOUSEFELLOW us Suyapa Quiles NP LAB BLOOD ORDERABLES F inal Result Performing Organization Address [facility] Co de Phone Number DIANDRA [address] [place] [address] * POCT glucose (03/01/2024 7:51 AM HOUSEFELLOW) Pathologist [facility] Glucose, POC 158 70 - 199 mg/dL Blood 03/01/2024 7:51 AM HOUSEFELLOW 03/01/2024 7:51 AM HOUSEFELLOW Tomi Parham MD LAB POCT ORDERABLES - DEVICE Final Result Performing Organization Address [facility] [place] [address] [address] [place] [address] * eGFR (03/01/2024 3:04 AM HOUSEFELLOW) Pathologist [facility] eGFR >90 >=60 mL/min/1. 73 m2 Comment: [...] last reviewed 2021. Blood 03/01/2024 3:04 AM HOUSEFELLOW 03/01/2024 3:23 AM HOUSEFELLOW us Tomi Parham MD LAB BLOOD ORDERABLES F inal Result [facility] [address] Department [place] [address] * (ABNORMAL) Basic metabolic panel (03/01/2024 3:04 AM HOUSEFELLOW) Sodium 141 135 - 145 mmol/L Potassium, pl 3.7 3.3 - 4.9 mmol/L [facility] Chloride 104 97 - 110 mmol/L [facility] CH CO2 27 22 - 32 mmol/L [facility] Anion gap 10 2 - 15 mmol/L [facility] BUN 15 6 - 25 mg/dL [facility] Creatinine 0.47(L) 0.60 - 1.10 mg/dL [facility] Glucose 143 70 - 199 mg/dL [facility] Comment: Interpretive Data Fasting glucose >/= 126 [...] classification and Diagnosis of Diabetes Diabetes Care 202; 46: S19-S40. Current interpretive data was last revised 2022. Calcium 8.6 8.5 - 10.3 mg/dL [facility] Blood 03/01/2024 3:04 AM HOUSEFELLOW 03/01/2024 3:23 AM HOUSEFELLOW Tomi Parham MD LAB BLOOD ORDERABLES F inal Result Performing Organization Address [facility] Co de Phone Number DIANDRA ALMENDAREZ [address] [facility] [place] [address] * POCT glucose (02/29/2024 7:59 PM HOUSEFELLOW) Glucose, POC 167 70 - 199 mg/dL Blood 02/29/2024 7:59 PM HOUSEFELLOW 02/29/2024 7:59 PM HOUSEFELLOW Tomi Parham MD LAB POCT ORDERABLES - DEVICE Final Result Performing Organization Address [facility] de Phone Number DIANDRA ALMENDAREZ [address] [facility] [address] * POCT glucose (02/29/2024 4:58 PM HOUSEFELLOW) Glucose, POC 92 70 - 199 mg/dL Blood 02/29/2024 4:58 PM HOUSEFELLOW 02/29/2024 4:58 PM HOUSEFELLOW Tomi Parham MD LAB POCT ORDERABLES - DEVICE Final Result Performing Organization Address [facility] de Phone Number DIANDRA ALMENDAREZ [address] [facility] [place] [address] * eGFR (02/29/2024 11:54 AM HOUSEFELLOW) eGFR >90 >=60 mL/min/1. 73 m2 Comment: [...] reviewed 2021. Blood 02/29/2024 11:5 4 AM HOUSEFELLOW 02/29/2024 1:08 PM HOUSEFELLOW us Lela Infante PROPERTY ACCOUNTANT LAB BLOOD ORDERABLES Steffany jain Result [facility] [address] [place] [address] * (ABNORMAL) Basic metabolic panel (02/29/2024 11:54 AM HOUSEFELLOW) Sodium 139 135 - 145 mmol/L Potassium, pl 3.6 3.3 - 4.9 mmol/L [facility] Chloride 99 97 - 110 mmol/L [facility] CO2 25 22 - 32 mmol/L [facility] Anion gap 15 2 - 15 mmol/L [facility] BUN 15 6 - 25 mg/dL [facility] Creatinine 0.39(L) 0.60 - 1.10 mg/dL [facility] Glucose 233(H) 70 - 199 mg/dL [facility] [...] 2022. Calcium 8.9 8.5 - 10.3 mg/dL [facility] Blood 02/29/2024 11:5 4 AM HOUSEFELLOW 02/29/2024 1:08 PM HOUSEFELLOW Lela Infante NP LAB BLOOD ORDERABLES Steffany l Result Performing Organization Address [facility] Co de Phone Number [facility] [address] [facility] [address] * (ABNORMAL) Hemoglobin and hematocrit (02/29/2024 11:49 AM HOUSEFELLOW) Hgb 11.7(L) 11.9 - 15.5 g/dL Hct 37.6 35.6 - 45.5 % [facility] Blood 02/29/2024 11:4 9 AM HOUSEFELLOW 02/29/2024 1:11 PM HOUSEFELLOW Lela Infante NP LAB BLOOD ORDERABLES Steffany l Result Performing Organization Address [facility] Co de Phone Number [facility] [address] [employer] [place], [place] [id number] * Magnesium (02/29/2024 11:49 AM HOUSEFELLOW) Magnesium 2.2 1.4 - 2.5 mg/dL Blood 02/29/2024 11:4 9 AM HOUSEFELLOW 02/29/2024 1:08 PM HOUSEFELLOW Lela Infante NP LAB BLOOD ORDERABLES Steffany l Result Performing Organization Address [facility] Co de Phone Number [facility] [address] [facility] [employer] [place], [place] [id number] * (ABNORMAL) POCT glucose (02/29/2024 11:40 AM HOUSEFELLOW) Glucose, POC 249(H) 70 - 199 mg/dL Blood 02/29/2024 11:4 0 AM HOUSEFELLOW 02/29/2024 11:40 AM HOUSEFELLOW Tomi Parham MD LAB POCT ORDERABLES - DEVICE Final Result Performing Organization Address [facility] de Phone Number DIANDRA ALMENDAREZ [address] [place] [address] * POCT glucose (02/29/2024 7:55 AM HOUSEFELLOW) Pathologist [facility] Glucose, POC 134 70 - 199 mg/dL Blood 02/29/2024 7:55 AM HOUSEFELLOW 02/29/2024 7:55 AM HOUSEFELLOW Tomi Parham MD LAB POCT ORDERABLES - DEVICE Final Result Performing Organization Address [facility] [place] [address] [address] [facility] [place] [address] * eGFR (02/29/2024 2:59 AM HOUSEFELLOW) Pathologist [facility] eGFR >90 >=60 mL/min/1. 73 m2 Comment: [...] last reviewed 2021. Blood 02/29/2024 2:59 AM HOUSEFELLOW 02/29/2024 3:23 AM HOUSEFELLOW Tomi Parham MD LAB BLOOD ORDERABLES F inal Result Performing Organization Address City/[facility]/ZIP Co de Phone Number [facility] [address] [place] [address] * (ABNORMAL) Magnesium (02/29/2024 2:59 AM HOUSEFELLOW) Magnesium 1.2(L) 1.4 - 2.5 mg/dL Blood 02/29/2024 2:59 AM HOUSEFELLOW 02/29/2024 3:23 AM HOUSEFELLOW Tomi Parham MD LAB BLOOD ORDERABLES F inal Result Performing Organization Address [facility]/ZIP Co de Phone Number [facility] [address] [place] [address] * (ABNORMAL) Basic metabolic panel (02/29/2024 2:59 AM HOUSEFELLOW) Sodium 139 135 - 145 mmol/L Potassium, pl 3.9 3.3 - 4.9 mmol/L [facility] Chloride 101 97 - 110 mmol/L [facility] CH CO2 28 22 - 32 mmol/L [facility] CH Anion gap 10 2 - 15 mmol/L [facility] BUN 17 6 - 25 mg/dL [facility] Creatinine 0.48(L) 0.60 - 1.10 mg/dL [facility] Glucose 123 70 - 199 mg/dL [facility] Comment: Interpretive [...] 2022. Calcium 8.7 8.5 - 10.3 mg/dL DIANDRA Blood 02/29/2024 2:59 AM HOUSEFELLOW 02/29/2024 3:23 AM HOUSEFELLOW Tomi Parham MD LAB BLOOD ORDERABLES F inal Result Performing Organization Address [facility] de Phone Number DIANDRA [address] [facility] [place] [address] * POCT glucose (02/28/2024 8:58 PM HOUSEFELLOW) Glucose, POC 185 70 - 199 mg/dL Blood 02/28/2024 8:58 PM HOUSEFELLOW 02/28/2024 8:58 PM HOUSEFELLOW Tomi Parham MD LAB POCT ORDERABLES - DEVICE Final Result Performing Organization Address [facility] de Phone Number [facility] [address] [facility] [place] [address] * POCT glucose (02/28/2024 4:59 PM HOUSEFELLOW) Glucose, POC 165 70 - 199 mg/dL Blood 02/28/2024 4:59 PM HOUSEFELLOW 02/28/2024 4:59 PM HOUSEFELLOW Tomi Parham MD LAB POCT ORDERABLES - DEVICE Final Result Performing Organization Address [facility] de Phone Number [facility] [address] [place] [address] * POCT glucose (02/28/2024 11:07 AM HOUSEFELLOW) Glucose, POC 127 70 - 199 mg/dL Blood 02/28/2024 11:0 7 AM HOUSEFELLOW 02/28/2024 11:07 AM HOUSEFELLOW Tomi Parham MD LAB POCT ORDERABLES - DEVICE Final Result Performing Organization Address [facility] [place] [address] [address] [place] [address] * POCT glucose (02/28/2024 6:52 AM HOUSEFELLOW) Glucose, POC 143 70 - 199 mg/dL Blood 02/28/2024 6:52 AM HOUSEFELLOW 02/28/2024 6:52 AM HOUSEFELLOW Tomi Parham MD LAB POCT ORDERABLES - DEVICE Final Result Performing Organization Address [facility] Co de Phone Number [facility]AW[facility] ALMENDARE[facility] [address] [place] [address] from Last 3 Months Insurance [facility] [employer] IDPA Advance Directives For more information, please contact: [phone] * Full Code (Latest Code Status on File) Date Activated Date Inactivated Comments 02/28/2024 11:33 AM 03/01/2024 4:04 PM Care Teams Clerical Assistant Relationship Specialty Start Date End Date Mega Che MD PCP - General 06/09/16
== END 2024-03-28 09:41 | disposition home or self-care (01) ==
PROVIDERS: PCP Internal Medicine; Visit Provider Nurse Practitioner Family
DX: R74.8 Abnormal levels of other serum enzymes (principal); R10.12 Left upper quadrant pain; K76.0 Fatty (change of) liver, not elsewhere classified; Z90.49 Acquired absence of other specified parts of digestive tract
CPT/HCPCS: 76705

== ENCOUNTER 2024-06-13 10:31 | Outpatient (CLI) | payer MEDICARE, MEDICAID, SELFPAY ==
[2024-06-13 11:28] LABS: Hematocrit 36.4 % (37.0-47.0); Hemoglobin 11.8 g/dL (12.0-15.0); Mean Corpuscular HGB Conc 32.4 g/dl (32-36); Mean Corpuscular Volume 98.6 fl (80-100); Mean Platelet Volume 9.9 fl (7.4-10.4); Platelet Count Result 304 k/mm3 (150-375); Red Blood Count 3.69 M/mm3 (4.2-5.4); Red Cell Distribution Width 15.2 % (11.5-14.5); White Blood Count 6.8 K/mm3 (4.5-10.0)
[2024-06-13 11:45] LABS: Alanine Aminotransferase 20 U/L (6-35); Albumin Level 3.9 g/dL (3.5-5.1); Alkaline Phosphatase 131 U/L (38-126); Anion Gap 4 mmol/L (4-12); Aspartate Amino Transferase 25 U/L (14-36); Bilirubin,Total 0.6 mg/dL (0.2-1.3); Blood Urea Nitrogen 35 mg/dL (7-17); Calcium 9.5 mg/dL (8.4-10.2); Carbon Dioxide 30 mmol/L (22-30); Chloride 102 mmol/L (98-107); Cholesterol 105 mg/dL (0-200); Estimated Glomerular Filt Rate > 60; Glucose 115 mg/dL (65-110); HDL Direct 34 mg/dL; Potassium 4.7 mmol/L (3.4-5.0); Sodium 136 mmol/L (137-145); Triglycerides 130 mg/dL (<150); Uric Acid 2.5 mg/dL (2.5-7.5)
--- OUTSIDE RECORDS SUMMARY | 2024-06-13 11:48 | XMS_ITS | Data Portability ---
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 Procedures None recorded. Surgeries None recorded. Imaging US, duplex, venous, lower extremity , complete - BILATE RAL 2023 024 [facility], [facility] [address], [address], 10/15/2023 18:07:54 Medication Orders tramadol 50 mg tablet 2023 024 [id number], [address], [place], [address], 03/07/2024 12:09:50 hydralazi ne 50 mg tablet 2023 024 [id number] [facility] #[id number], [address], [place], [address], 02/29/2024 05:07:44 Augmentin 875 mg-125 mg tablet 2023 024 [email or web address] 2 [facility] #[id number], [address], [place], [address], 12/28/2023 12:32:36 Augmentin 875 mg-125 mg tablet 2023 024 [email or web address] 2 [facility] #[id number], [address], [place], [address], 12/28/2023 12:32:36 Patient TargetsNo targets recorded. Patient Instructions Encounter Date Encounter Id Patient Instructions Last Modified By Organization Details Last Modified Time 03/07/2024 [id number] Thank you for your visit to our [...] homebound status}} Required Home Health Services: {{none penitentiary, physical therapy, occupational therapy penitentiary, physical therapy penitentiary}} Durable Medical Equipment needed: {{cane walker wa lker with seat manual wheelchair bedsi de commode oxygen}} Billing Guidelines CPT code 67313- Transitional Care Management services with moderate medical decision complexity (xozk-dd-ohkh visit within 14 days of discharge). CPT code 87719- Transitional Care Management services with high medical decision complexity (kxhg-zk-ufyt visit within 7 days of discharge). [email or web address] Not available 03/07/2024 11:33:18 Reason for Referral None Reported. Results Created Date Observation Date Name Description Value Unit Range Abnormal Flag Note LastModifiedBy Organization Detail LastModifiedTime 12/22/1912/22/2023 COMPR EHENS ADAIR METAB OLIC PANEL sodium 138 mmol/ L 137-14 5 Not Available [facility] (Lab) [address] [place], [address], 12/22/2023 19:35:31 12/22/1912/22/2023 COMPR EHENS ADAIR METAB OLIC PANEL potassium 4.2 mmol/ L 3.5-5. 1 Not Available [facility] (Lab) [address] [place], [address], 12/22/2023 19:35:31 12/22/1912/22/2023 COMPR EHENS ADAIR METAB OLIC PANEL chloride 103 mmol/ L 98-107 Not Available [facility] (Lab) [address] [place], [address], 12/22/2023 19:35:31 12/22/1912/22/2023 COMPR EHENS ADAIR METAB OLIC PANEL carbon dioxide 26 mmol/ L 22-30 Not Available [facility] (Lab) [address] [place], [address], 12/22/2023 19:35:31 12/22/19 24 12/22/2023 COMPR EHENS ADAIR METAB OLIC PANEL anion gap 13.2 mmol/ L 14-22 low Not Available [facility] (Lab) [address] [place], [address], 12/22/2023 19:35:31 12/22/19 24 12/22/2023 COMPR EHENS ADAIR METAB OLIC PANEL glucose 181 mg/dL 70-99 high Not Available [facility] (Lab) [address] [place], [address], 12/22/2023 19:35:31 12/22/19 24 12/22/2023 COMPR EHENS ADAIR METAB OLIC PANEL BUN 13 mg/dL 8-19 Not Available [facility] (Lab) [address] [place], [address], 12/22/2023 19:35:31 12/22/1912/22/2023 COMPR EHENS ADAIR METAB OLIC PANEL creatinine 0.41 mg/dL 0.66-1 .25 low Not Available [facility] (Lab) [address] [place], [address], 12/22/2023 19:35:31 12/22/19 24 12/22/2023 COMPR EHENS ADAIR METAB OLIC PANEL GFR >60 Refer ence Range : [place] [facility] G[facility] hy Adult : >60 [...] calcu lator is avail able on the [facility] websi te: [email or web address] :[email or web address] [email or web address] ofess ional s/kdo qi/gf r_cal culat or Not Available [facility] (Lab) [address] [place], [address], 12/22/2023 19:35:31 12/22/1912/22/2023 COMPR EHENS ADAIR METAB OLIC PANEL alkaline phosphatase 187 U/L 38-126 high Not Available [facility] (Lab) [address] [place], [address], 12/22/2023 19:35:31 12/22/19 24 12/22/2023 COMPR EHENS ADAIR METAB OLIC PANEL alanine aminotransfe rase 38 U/L 0-35 high Not Available [facility] (Lab) [address] [place], [address], 12/22/2023 19:35:31 12/22/19 24 12/22/2023 COMPR EHENS ADIAR METAB OLIC PANEL aspartate aminotransfe rase 35 U/L 15-37 Not Available [facility] (Lab) [address] [place], [address], 12/22/2023 19:35:31 12/22/19 24 12/22/2023 COMPR EHENS ADAIR METAB OLIC PANEL bilirubin, total 1.00 mg/dL 0.20-1 .30 Not Available [facility] (Lab) [address] [place], [address], 12/22/2023 19:35:31 12/22/19 24 12/22/2023 COMPR EHENS ADAIR METAB OLIC PANEL calcium 9.5 mg/dL 8.4-10 .2 Not Available [facility] (Lab) [address] [place], [address], 12/22/2023 19:35:31 12/22/19 24 12/22/2023 COMPR EHENS ADAIR METAB OLIC PANEL total protein 5.9 g/dL 6.3-8. 2 low Not Available [facility] (Lab) [address] [place], [address], 12/22/2023 19:35:31 12/22/19 24 12/22/2023 COMPR EHENS ADAIR METAB OLIC PANEL albumin 3.6 g/dL 3.0-4. 4 Not Available [facility] (Lab) [address] [place], [address], 12/22/2023 19:35:31 12/22/19 24 12/22/2023 COMPR EHENS ADAIR METAB OLIC PANEL globulin 2.3 g/dL 2.6-4. 2 low Not Available [facility] (Lab) [address] [place], [address], 12/22/2023 19:35:31 12/22/19 24 12/22/2023 COMPR EHENS ADAIR METAB OLIC PANEL A/G ratio 1.6 ratio 1.0-2. 0 Not Available [facility] (Lab) [address] [place], [address], 12/22/2023 19:35:31 12/22/19 24 12/22/2023 HEMOG LOBIN A1C HA1C 7.6 % 4.0-6. 0 high Diabe petros Scree zaida Crite chung: <5.7% Consi stent with absen ce of diabe petros 5.7-6 .4% Consi stent with incre ased risk for diabe petros (pred iabet es) >OR=6 .5% Consi stent with diabe petros REFER ENCE: Diabe petros Care 2015, 39(Triplett ppl.1 ):s13 -s22 Not Available [facility] (Lab) [address] [place], [address], 12/22/2023 20:51:40 10/06/19 24 10/06/2023 scree zaida breira t diane, bilat [facility] [address] [facility] [place] [address] Patidayami t Name: GEORGETTE JAQUEZ ion #: [id number] Sex: F : 1945 7 Dictat [...] at 2023 15:13: 49 PM Page 1 [email or web address] [facility] (Imaging) [address] [place], [address], 10/07/2023 14:08:39 10/06/19 24 10/06/2023 DEXA, axial skele ton [facility] [address] [facility] [place] [address] Patien t Name: GEORGETTE JAQUEZ ion #: [id number] Sex: F : 1945 7 Dictat ed By: Marisela Persaud Attend ing Physic diane: ELIJAH CHE Orderi Physic diane: ELIJAH CHE Exam Date: 2023 13:52 PM Exam Name: XR DEXA-H IPS PELVIS SPINE Admitt ing Diagno sis(es ): INDICA TION: ASYMPT OMATIC MENOPA USAL STATE. Postme nopaus al osteop orosis . Patien t in [facility] hair. Forear m only was able to [...] d of T-scor e WHO Page 1 [facility] [address] [place] [address] Patidayami t Name: GEORGETTE JAQUEZ ion #: [id number] Sex: F : 1945 7 Dictat ed By: Marisela Persaud Attend ing Physic diane: SHAHZAD ANNE Orderi ng Physic diane: ELIJAH CHE ER Exam Date: 2023 13:52 PM Exam Name: XR DEXA-H IPS PELVIS SPINE Admitt ing Diagno sis(es ): criter ia 4) <-2.0: below expect ed range/ low bone densit y for age, and a cause should be sought Electr onical ly Signed by: Marisela Persaud at 2023 15:20: 28 PM Page 2 [email or web address] [facility] (Imaging) [address] [place], [address], 10/07/2023 14:08:40 10/15/19 24 10/14/2023 US, livle x, venou s, lower extre mity, compl ete No observ ation record ed. [email or web address] [facility] [address], [place], [address], 10/20/2023 12:42:33 11/12/19 24 11/12/2023 XR, chest [...] Details Recorded Time Edema of lower extremity 003376881 Completed 201708/31/2017 Not Available [facility] 3 01:20:31 Gastroesop hageal reflux disease 596405760 Active 2016 Not Available [facility] 3 01:20:32 Edema 257855494 Completed 201608/31/2017 Not Available [facility] 3 01:20:32 Low back pain 960090189 Active 2021 Not Available [facility] 3 01:20:32 Finding of body mass index 265646914 Completed 202111/13/2021 Not Available [facility] 3 01:20:32 Post poliomyeli tis syndrome 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 2016 Not Available [facility] 3 01:20:32 Vitamin D deficiency 17360438 Active 2021 Not Available [facility] 3 01:20:32 Obesity 934922314 Active 2016 Not Available [facility] 3 01:20:32 Coronary arterioscl erosis 00526726 Active 2016 Not Available [facility] 3 01:20:32 Hyperlipid emia 12743684 Active 2016 Not Available [facility] 3 01:20:32 Essential hypertensi on 21408241 Active 2016 Not Available [facility] 3 01:20:33 Diarrhea 01604880 Completed 202103/19/2023 Alexa alvarado, RMHeather null, [facility] [employer] [facility] 4 10:09:35 Osteoporos is 02701683 Active 2021 Not Available [facility] 3 01:20:33 Diabetes mellitus 48245656 Active 2016 Not Available [facility] 3 01:20:33 Overactive urinary bladder 798715888 Active 2020 Not Available [facility] 3 01:20:33 Neck pain 28520182 Completed 201601/18/2017 Mauri Che MD [address] [place] [address], [address] [place] [address], [place], [address] , [facility] 4 17:07:05 Gout 36937802 Active 2021 Not Available [facility] 3 01:20:33 Osteoarthr itis 458079309 Active 2022 Alexa alvarado RMA null, [facility] [employer] [facility] 4 10:09:26 Pruritic rash 83699968 Completed 202203/19/2023 Alexa alvarado RMA null, [facility] [employer] [facility] 4 10:09:30 Adult health examinatio n Active 2023 Alexa alvarado RMA null, [facility] [employer] [facility] 4 10:09:45 Swelling of bilateral lower limbs 424183578 Active 2023 Mauri Che MD [address], [place], [address] , [facility] [employer] [facility] 4 16:39:43 Infection of nail 829441801 Active 2023 Mauri Che MD [address], [place], [address] , [facility] 4 16:40:27 Type 2 diabetes mellitus without complicati on 477215687 Active 2023 Anne Bah LPN null, [facility] [employer] [facility] 4 12:32:15 Neck pain 68869482 Active 2023 Mauri Che MD [address], [place], [address] , [facility] 4 17:07:05 Problem Notes None recorded. Procedures Surgical History Date Name Laterality Status Provider Name and Address Organization Details Recorded Time Transitional_Care_ Management completed Patricia Hussein PA [facility] [employer] [facility] 03/07/2024 11:33:19 Medicare Wellness CPT Code, subsequent completed Riri Szymanski RN [facility] 08/18/2023 10:17:38 023 Medicare Wellness CPT Code, subsequent completed Lela Linares RN [facility] 06/24/2022 14:56:24 022 Date of Last Mammogram completed Lela Linares RN [facility] 06/24/2022 14:57:15 022 Most Recent Bone Density completed Lela Linares RN [facility] 06/24/2022 14:57:31 017 Date of Last Colonoscopy completed Not Available [facility] 05/06/2022 01:05:37 Foot Surgery completed [facility] Available [facility] 05/06/2022 01:05:40 Hysterectomy, Partial completed Not Available [facility] 05/06/2022 01:05:40 Cholecystectomy completed Not Available [facility] 05/06/2022 01:05:40 Unlisted px femur/knee completed Not Available [facility] 05/06/2022 01:05:40 Neck spine disk surgery completed Not Available [facility] 05/06/2022 01:05:40 Carpal tunnel surgery completed Not Available [facility] 05/06/2022 01:05:40 Stent Placement completed Not Available [facility] 05/06/2022 01:05:40 Appendectomy completed [facility] 05/06/2022 01:05:40 Imaging Results Imaging Date Name Status LastModified by Organiz ation Details LastModified Time 10/06/2023 screening breast diane, bilat completed [facility] (Imaging) [address] [place], [address], 10/07/2023 14:08:39 10/06/2023 DEXA, axial skeleton completed [email or web address] [facility] (Imaging) [address] [place], [address], 10/07/2023 14:08:40 10/14/2023 US, duplex, venous, lower extremity, complete completed [address], [address], 10/20/2023 12:42:33 11/12/2023 XR, chest, 1 view completed [email or web address] Information not available 12/22/2023 10:10:50 01/17/2024 CT, cervical spine, w/wo contrast completed [email or web address] Information not available 01/17/2024 18:10:18 03/20/2024 sleep study, diagnostic (PROC) completed [email or web address] Information not available 03/28/2024 13:07:38 Procedure Notes None recorded. Medical Equipment None Reported. Allergies Allergen ID Allergen Name Allergen Category Reaction Reaction Severity Criticality Documentation Date Start Date Code Code System Note Provider Name and Address Organization Details Recorded Time 2858 codeine medicatio n nausea Not available Not available 05/06/2022 2670 RxNorm Not Available [facility] 3 01:38:49 Medications Name Sig Start Date [...] completed Not Available Not Available Not Available metoprolo l succinate ER 50 mg tablet,ex tended release 24 hr TAKE 1 TABLET BY MOUTH EVERY DAY active Not Available Not Available No t Available hydrocodo ne 5 mg-acetam inophen 325 [...] TABLET BY MOUTH EVERY DAY 2024 active ESTEPHANIA 01/27/24 07/04/24 ok to rf Not Available Not Available [...] MOUTH EVERY DAY 12/21 completed ESTEPHANIA 11/10/23 12/22/23 ok to rf Not Available Not Available Not Available omeprazol e 40 mg capsule,d elayed release Take 1 capsule every day by oral route. active Not Available Not Available No t Available tramadol 50 mg tablet TAKE 1 TABLET BY MOUTH TWICE A DAY NEEDED 2024 active ESTEPHANIA 01/27/24 07/04/24 Last fill 03/07/24 Not Available Not Available Not Available triamcino lone acetonide 0.1 % topical cream [...] oral route. 07/03 completed WArfarin stopped By RM keep taking plavix Not Available Not Available [...] Not Available Not Available Not Avai lable hydralazi ne 50 mg tablet TAKE 1 TABLET BY MOUTH TWICE A DAY 2024 active ESTEPHANIA 01/27/24 NOV 08/31/24 ok to rf Not Available Not Available [...] Not Available Not Available Not Avai lable valsartan 160 mg tablet TAKE ONE TABLET BY MOUTH ONCE DAILY 09/21 completed recall Not Available Not Available Not Available olmesarta n 40 mg tablet TAKE 1 TABLET BY MOUTH EVERY DAY 2024 active ESTEPHANIA 01/27/24 NOV 04/26/24 ok to [...] 96 % 140 mm[Hg] 70 mm[Hg] Alexa pratt Heather [facility] [employer] [facility] 4 15:58:24 Date Recorded Body height Body temperature Heart rate Oxygen saturation Oxygen saturation in Arterial blood by Pulse oximetry Systolic blood pressure Diastolic blood pressure Provider Name and Address Organization Details Last Updated DateTime 4 152.4 cm 97.5 [degF] 75 /min 98 % 98 % 152 mm[Hg] 70 mm[Hg] Alexa Torrespaulina terence [facility] [employer] [facility] 4 15:58:41 Date Recorded Body height Body temperature Heart rate Oxygen saturation Oxygen saturation in Arterial blood by Pulse oximetry Systolic blood pressure Diastolic blood pressure Provider Name and Address Organization Details Last Updated DateTime 4 152.4 cm 97.2 [degF] 64 /min 98 % 98 % 138 mm[Hg] 80 mm[Hg] Alexa Katherin terence [facility] [employer] [facility] 4 09:53:18 Date Recorded Body height Oxygen saturation Oxygen saturation in Arterial blood by Pulse oximetry Heart rate Body temperature Systolic blood pressure Diastolic blood pressure Provider Name and Address Organization Details Last Updated DateTime 4 152.4 cm 96 % 96 % 75 /min 97.3 [degF] 144 mm[Hg] 60 mm[Hg] Alexa Batistaalexandra terence [facility] [employer] [facility] 4 16:47:43 Date Recorded Body temperature Heart rate Oxygen saturation Oxygen saturation in Arterial blood by Pulse oximetry Systolic blood pressure Diastolic blood pressure Provider Name and Address Organization Details Last Updated DateTime 4 97.1 [degF] 77 /min 97 % 97 % 138 mm[Hg] 60 mm[Hg] Patricia horta [facility] [employer] [facility] 4 11:44:35 Social History Question Answer Notes LastModified by Organizat ion Details LastModified Time Tobacco Smoking Status Never Smoker Not Available [facility] 05/06/2022 01:05:09 Do You Have An Advance Directive? Yes MIGRATION.77234 [id number] Information not available 05/06/2022 What Is Your Level Of Alcohol Consumption? None MIGRATION.78511 85162 Information not available 05/06/2022 Are You Blind Or Do You Have Difficulty Seeing? No MIGRATION.79875 32793 Information not available 05/06/2022 What Is Your Level Of Caffeine Consumption? Moderate MIGRATION.55254 71644 Information not available 05/06/2022 How Much Tobacco Do You Chew? None MIGRATION.86793 20672 Information not available 05/06/2022 Are You Deaf Or Do You Have Serious Difficulty Hearing? No MIGRATION.24540 53994 Information not available 05/06/2022 What Type Of Diet Are You Following? REGULAR MIGRATION.44313 03479 Information not available 05/06/2022 Which Illicit Or Recreational Drugs Have You Used? None MIGRATION.02496 82872 Information not available 05/06/2022 Do You Or Have You Ever Used E-cigarettes Or Vape? Never Used Electronic Cigarettes MIGRATION.26307 19039 Information not available 05/06/2022 What Is Your Occupation? Retired MIGRATION.42867 35691 Information not available 05/06/2022 Have There Been Any Changes To Your Family Or Social Situation? No MIGRATION.64889 40915 Information not available 05/06/2022 What Is The Fluoride Status Of Your Home? Fluoridated MIGRATION.01677 31616 Information not available 05/06/2022 Are There Any Guns Present In Your Home? No MIGRATION.67786 59305 Information not available 05/06/2022 [facility] MIGRATION.08930 42309 Information not available 05/06/2022 Presence Of Domestic Violence No [email or web address] Information not available 06/24/2022 Guns Present In The Home? No [email or web address] Information not available 08/18/2023 Are You Able To Care For Yourself? Yes [email or web address] Information not available 08/18/2023 Are You Blind Or Do Yo Have Difficulty Seeing? No [email or web address] Information not available 08/18/2023 Are You Deaf Or Do You Have Serious Difficulty Hearing? No [email or web address] Information not available 08/18/2023 Live Alone Of With Others? Alone [email or web address] Information not available 08/18/2023 What Was The Date Of Your Most Recent Tobacco Screening? 08/18/2023 [email or web address] Information not available 08/18/2023 Do You Have Any Pets? Yes MIGRATION.90119 81699 Information not available 05/06/2022 What Is Your Relationship Status? MIGRATION.86269 48502 Information not available 05/06/2022 Do You Use Your Seat Belt Or Car Seat Routinely? Yes MIGRATION.09816 47165 Information not available 05/06/2022 Do You Have Smoke And Carbon Monoxide Detectors In Your Home? Yes MIGRATION.53280 23266 Information not available 05/06/2022 Are You Passively Exposed To Smoke? No MIGRATION.10180 23906 Information not available 05/06/2022 Do You Or Have You Ever Used Smokeless Tobacco? Never Used Smokeless Tobacco MIGRATION.31936 01088 Information not available 05/06/2022 Are There Any Smokers In Your House? No MIGRATION.78256 89966 Information not available 05/06/2022 How Much Tobacco Do You Smoke? No MIGRATION.42754 53361 Information not available 05/06/2022 Do You Feel Stressed (tense, Restless, Nervous, Or Anxious, Or Unable To Sleep At Night)? [id number] [email or web address] Information not available 06/24/2022 Do You Use Sunscreen Routinely? No MIGRATION.48643 49237 Information not available 05/06/2022 Sex: Female Functional Status Question Answer Note LastModified by Organizat ion Details LastModified Time Do you have difficulty walking or climbing stairs? Yes MIGRATION.1161398 026 Information not available 05/06/2022 Do you have transportation difficulties? No MIGRATION.2779914 026 Information not available 05/06/2022 Are you able to walk? NOINDWHEEL MIGRATION.5154303 026 Information not available 05/06/2022 Do you have difficulty doing errands alone? No MIGRATION.7408092 026 Information not available 05/06/2022 Are you able to care for yourself? Yes MIGRATION.8372494 026 Information not available 05/06/2022 Do you have difficulty dressing or bathing? No MIGRATION.5839363 026 Information not available 05/06/2022 What is your exercise level? None MIGRATION.2340000 026 Information not available 05/06/2022 Mental Status Question Answer Note LastModified by Organizat ion Details LastModified Time Do you have difficulty concentrating, remembering or making decisions? No MIGRATION.943872326 6 Information not available 05/06/2022 Family History Relationship Description Onset Age of this Age Resolved Age Notes LastModified by Organization Details LastModified Time Father Heart disease MIGRATION.828 [id number] Not available 05/06/2022 01:05:48 Father Essential hypertension MIGRATION.676 [id number] Not available 05/06/2022 01:05:48 Mother Heart disease MIGRATION.266 [id number] Not available 05/06/2022 01:05:48 Mother Essential hypertension MIGRATION.086 7909104 Not available 05/06/2022 01:05:48 Brother Heart disease MIGRATION.763 [id number] Not available 05/06/2022 01:05:48 Medical History No [...] SNOMED-CT Code Diagnosis ICD10 Code Diagnosis Note [id number] [facility] [address] [place] [address] 05/09/2020 00:00:00 05/09/2020 12:52:20 [id number] [facility] [address] [place] [address] 08/09/2020 00:00:00 08/16/2020 13:01:27 [id number] [facility] [address] [address] 10/10/2020 00:00:00 10/10/2020 15:02:25 [id number] [facility] [address] [place] [address] 02/06/2021 00:00:00 02/06/2021 15:43:17 [id number] [facility] [address] [place] [address] 06/09/2021 00:00:00 06/09/2021 17:00:35 [id number] [facility] [address] [place] [address] 10/08/2021 00:00:00 10/08/2021 13:42:17 [id number] [facility] [address] [place] [address] 11/13/2021 00:00:00 11/13/2021 15:41:57 [id number] [facility] [address] [address] 02/13/2022 00:00:00 02/13/2022 11:49:[id number] Che [address] 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 Overactive urinary bladder 947001257 N32.81 samples Vitamin D deficiency 347 91046 E55.9 to take otc Low back pain 382040560 M54.50 Gout 29793242 M10.9 no flare up Osteoporosis 99171707 M8 1.0 to start meds after dentAL W/U Adult heal th examination 491571812 Z00.00 Screening for disorder 621606253 Z13.9 Long-term drug therapy 893657182 Z79.899 Pruritic rash 18111057 L 28.2 its hard for her to reach her back to apply the cream [id number] Mauri Che MD [facility] Internal [facility] [address] [place] [address] 11/17/2022 14:22:18 11/17/2022 15:06:17 Diabetes mellitus 44579983 E11.9 advised to watch diet Essential hypertension 20998039 I10 under control Gastroesop hageal reflux disease 423956138 K21.9 stable Hyperlipidemia 91843293 E78.5 stable with meds Obesity 844769430 E66.9 advised to lose Coronary arteriosclerosis 10302876 I25.10 no symptoms Post polio myelitis syndrome 30896190 G14 in wheel chair Overactive urinary bladder 074501342 N32.81 does not want meds Vitamin D deficiency 347 77747 E55.9 otc Low back pain 370085514 M54.50 otc, tramadol prn Gout 93882050 M10.9 no flare up Osteoporosis 57498354 M8 1.0 concerned about side effects Adult heal th examination 677005265 Z00.00 Depression screening 171 935794 Z13.31 neg Screening mammography 24 839914 Z12.31 [id number] Mauri Che MD [facility] [address] [place] [address] 03/19/2023 10:02:20 03/19/2023 10:37:30 Diabetes mellitus 31223833 E11.9 advised to watch diet Essential hypertension 81841780 I10 under control Gastroesop hageal reflux disease 962687736 K21.9 stable Hyperlipidemia 94695275 E78.5 stable with meds Obesity 702800418 E66.9 advised to lose Coronary arteriosclerosis 15172458 I25.10 no symptoms Post polio myelitis syndrome 85368887 G14 in wheel chair Overactive urinary bladder 526694434 N32.81 meds help Vitamin D deficiency 347 21023 E55.9 otc Low back pain 247238921 M54.50 tramadol prn Gout 56595933 M10.9 no flare up Osteoporosis 87527669 M8 1.0 dos not want meds due to possible side effects Adult heal th examination 275244981 Z00.00 Mammogram- 07/2021- ORDEREDCol onoscopy 2017Pap per pt years agoDexa-2DOES NOT WANT PNEUMOVAXF nara- DENIED Screening mammography 24 942151 Z12.31 was ordered, still did not get [id number] Mauri Che MD [facility] Internal [place] [address] 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 Overactive urinary bladder 513319504 N32.81 meds help Vitamin D deficiency 347 63240 E55.9 otc Low back pain 064797210 M54.50 tramadol prn Gout 89698854 M10.9 no flare up Osteoporosis 84761019 M8 1.0 does not want meds due to possible side effects Adult heal th examination 752978030 Z00.00 Mammogram- 07/2021- ORDEREDCol onoscopy 2017Pap per pt years agoDexa-2DOES NOT WANT PNEUMOVAXF nara- DENIED Osteoarthritis 828117940 M19.90 Screening mammography 24 237215 Z12.31 was ordered, still did not get Postmenopausal state 764 96207 Z78.0 Screening for disorder 913540838 Z13.9 [id number] Mauri Che MD [facility] Internal [address] [place] [address] 09/29/2023 15:26:23 09/29/2023 16:49:59 Swelling of bilateral lower limbs 265448332 M79.89 Infection of nail 592210 000 L60.8 [id number] Che MD [facility] Internal [address] [address] 11/10/2023 15:45:29 11/10/2023 16:18:39 Swelling of bilateral lower limbs 420509468 M79.89 stop amlodipine , start hydralazin e Infection of nail 665812 000 L60.[id number] [facility] Internal [address] 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 Internal [facility] [address] [place] [address] 01/27/2024 16:25:56 01/27/2024 17:09:07 Neck pain 47240576 M54.2 much better, stretching discussed, heating pad [id number] Mayela Solis NP [facility] Internal [address] [place] [address] 03/07/2024 11:30:59 03/07/2024 12:14:20 Transition of care 2927003689 105 Z75.8 Osteoarthritis 641840667 M19.90 would like refill of pain meds, she has chronic arthritis and pain Health Concerns Section Related Observation LastModified by Organization Detai ls LastModified Time None Recorded Concern Status LastModified by Organization Details LastModified Time None Recorded Advance Directives Directive Y: Payers Encounter Date Sequence Insurance Name Policy Number Policy Gonzalez Covered Member ID Gonzalez Member ID Guarantor Name 09/29/2023 1 [employer] (MEDICARE REPLACEMENT/A DVANTAGE - PPO) [id number] Georgette Coreylatasha [id number] Georgette Craven 11/10/2023 1 [employer] (MEDICARE REPLACEMENT/A DVANTAGE - PPO) [id number] Georgette Coreylatasha [id number] Georgette Craven 11/10/2023 2 MEDICAID-AL: [facility] AID Georgette Coreylatasha [id number] Georgette Coreylatasha 12/22/2023 1 [employer] (MEDICARE REPLACEMENT/A DVANTAGE - PPO) [id number] Georgette Coreylatasha [id number] Georgette Walker Herber 12/22/2023 2 MEDICAID-AL: [facility] Georgette Coreylatasha [id number] Georgette Craven 01/27/2024 1 [facility] (MEDICARE REPLACEMENT/A DVANTAGE - PPO) [id number] Georgette Coreylatasha [id number] Georgette Coreylatasha 01/27/2024 2 MEDICAID-AL: [facility] Georgette Coreylatasha [id number] Georgette Craven 03/07/2024 1 [facility] (MEDICARE REPLACEMENT/A DVANTAGE - PPO) [id number] Georgette Coreylatasha [id number] Georgette Craven 03/07/2024 2 MEDICAID-AL: [facility] Georgette Craven [id number] Georgette Craven Notes Date Note Type Note [...] NAILno sob, no fever Mauri Che MD [address] [place] [address], [facility] [address], [place], [address], [facility] [email or web address] 09/29/2023 16:41:46 11/10/2023 text/html Pt [...] some times Mauri Che MD [address], [place], [address], [facility] [employer] 11/10/2023 16:13:41 12/22/2023 text/html Pt is here [...] syndrome, using wheel chair all the times Mauir Che MD [address], [facility] [address], [place], [address], [facility] [employer] [facility] [employer] 12/22/2023 10:20:11 01/27/2024 text/html Pt is here today for a ER follow upShe [facility] painCT neck showed old fusion and spinal stenosis and arthritis but told her she probably had a pulled muscle and some arthritis. Was given oxycodone and flexeril.Pt states she feels better, she has more movement than she did beforepain is better Mauri Che MD [address], [place], [address], [facility] [employer] [facility] [employer] 01/27/2024 17:09:04 03/07/2024 text/html pt is here today for a hospital f/u at [facility] with a LHC on 02/28/24 bc of a mild heart attack 02/02/24 at [facility]. sleep study for is scheduled 03/17/24. pt is experiencing lumbar pain onest 1wk. no injury,might of slept on it wrong while at hospital.. 4of10 pain level. tramadol at night . tramadol refill Mayela Solis NP [address], [place], [address], [employer] 03/07/2024 12:30:44 OBGyn Episode No OBEpisode recorded.
--- OUTSIDE RECORDS SUMMARY | 2024-06-13 11:48 | XMS_ITS | Clinical Summary ---
Author Organization [facility] Healthcare Address [address] [place] [address] Care Team Providers Care Flexboard Operator Name Role Phone Mega Che MD Primary Care Provider Allergies Active Allergy Reactions Criticality Noted Date Comments Codeine Stomach upset Low 09/15/2012 Stomach issues Medications metFORMIN (GLUCOPHAGE) 500 mg tablet take 1 Tablet by oral route every day with morning and evening meals 0 0 5 Active atorvastatin (LIPITOR) 20 mg tablet take 1 tablet by oral route every day 30 6 5 Active traMADol (ULTRAM) 50 mg tablet Take 1 tablet (50 mg total) by mouth every 6 (six) hours as needed for pain Active ergocalciferol, vitamin D2, (VITAMIN D2 ORAL) Take 1 tablet by mouth daily Active olmesartan (BENICAR) 40 mg tablet Take 1 tablet (40 mg total) by mouth daily 4 Active allopurinoL (ZYLOPRIM) 300 mg tablet Take 1 tablet (300 mg total) by mouth daily [address] (PROTONIX) 40 mg EC tablet Take 1 tablet (40 mg total) by mouth daily 4 Active hydrALAZINE (APRESOLINE) 50 mg tablet Take 1 tablet (50 mg total) by mouth 2 (two) times a day 4 Active Myrbetriq 50 mg tablet extended release 24 hr Take 1 tablet (50 mg total) by mouth daily 4 Active ondansetron ODT (ZOFRAN-ODT) 4 mg disintegrating tablet Take 1 tablet (4 mg total) by mouth every 8 (eight) hours as needed 4 Active famotidine (PEPCID) 20 mg tablet Take 1 tablet (20 mg total) by mouth 2 (two) times a day 4 Active furosemide (LASIX) 20 mg tablet Take 1 tablet (20 mg total) by mouth 2 (two) times a day 4 Active magnesium oxide (MAG-OX) 400 mg (241.3 mg elemental magnesium) tabletIndications:h ypomagnesemia Take 1 tablet (400 mg total) by mouth 2 (two) times a day 60 tablet 11 4 03/01/20 25 Active spironolactone (ALDACTONE) 25 mg tablet Take 0.5 tablets (12.5 mg total) by mouth daily 30 tablet 2 4 Active metoprolol XL (TOPROL-XL) 50 mg extended release tablet Take 1 tablet (50 mg total) by mouth daily 30 tablet 2 4 Active amLODIPine (NORVASC) 5 mg tablet Take 0.5 tablets (2.5 mg total) by mouth daily 30 tablet 2 4 Active Active Problems Problem Noted Date Diagnosed Date CAD (coronary artery disease) 02/28/2024 CHF (congestive heart failure) 02/09/2024 Coronary artery disease invo lving [place] coronary artery of [place] heart without angina pectoris 12/15/2016 Cardiomyopathy, ischemic 12/15/2016 History of coronary artery stent placement 12/15 Surgical History Surgery Date Site/Laterality Comments CHOLECYSTECTOMY Cholecystectomy APPENDECTOMY HYSTERECTOMY CARPAL TUNNEL RELEASE Medical History Medical History Date Comments Chronic coronary artery disease Coronary artery disease Hypertension Hypertension Gastroesophageal reflux disease GERD Hx Other Medical history polio; Comments: [facility] 07/06/2014 -paralyzed waist down Hx Other Medical osteoarthritis; Comments: [facility] 07/06/2014 - Hx Other Medical history DVT; Co mments: [facility] 07/06/2014 - Hyperlipidemia CHF (congestive heart failure) ([facility]) Electric wheelchair dependence Type 2 diabetes mellitus ([facility]) Family History Medical History Relation Name Comments [...] drink = 0.6 oz pur e alcohol) [facility] Utilities Answer Date Recorded In the past 12 months has th e electric, gas, oil, or water company [...] often do you attend chur ch or spiritism services? Never 02/29/2024 Do you belong to any clubs o r organizations such as synagogue groups, unions, fraternal or athletic groups, or [...] any time in the past 12 m [facility], were you homeless or living [...] on file Legal Sex Female 12:09 AM BOTTLE SORTER Gender Identity Not on file Sexual Orientation Not on file Obstetrics History Last Filed Vital Signs Vital Sign Reading Time Taken Comments Blood Pressure 145/57 03/01/2024 7:37 AM BOTTLE SORTER Pulse 76 03/01/2024 8:00 AM BOTTLE SORTER Temperature 36.5 C (97.7 F) 03/01/2024 7:37 AM BOTTLE SORTER Respiratory Rate 17 03/01/2024 7:37 AM BOTTLE SORTER Oxygen Saturation 98% 03/01/2024 7:37 AM BOTTLE SORTER Inhaled Oxygen Concentration - - Weight 86.3 kg (190 lb 4.1 oz) 03/01/2024 5:31 A M BOTTLE SORTER Height 152.4 cm (5') 02/28/2024 6:48 AM BOTTLE SORTER Body Mass Index 37.16 02/28/2024 6:48 AM BOTTLE SORTER Plan of Treatment Health Maintenance Due Date Last Done Comments Depression Screening 1945 Hepatitis C Screening 1945 Osteoporosis Screening-Bone Density Scan 1945 DTaP/Tdap/Td Vaccine (1 - Tdap) 1957 Hepatitis B Screening 1964 Pneumococcal vaccine 65+ (1 of 1 - PCV) 1996 Zoster Vaccine (1 of 2) 1996 Well Visit 65+ 09/26/2011 Influenza Vaccine (#1) 2023 Fall Risk Assessment 03/01/2025 03/01/2024 Insurance [facility] MEDIC[facility] ADVANT[facility] [employer] Advance Directives For more information, please contact: [phone] * Full Code (Latest Code Status on File) Date Activated Date Inactivated Comments 02/28/2024 11:33 AM 03/01/2024 4:04 PM Care Teams Flexboard Operator Relationship Specialty Start Date End Date Mega Che MD PCP - General 06/09/16
--- OUTSIDE RECORDS SUMMARY | 2024-06-13 11:48 | XMS_ITS | Referral Summary ---
Author Organization [facility] Healthcare Address [address] [place] [address] Care Team Providers Care Library Specialist Name Role Phone Mega Che MD Primary [...] failure) 02/09/2024 Coronary artery disease invo lving [place] coronary artery of [place] heart without angina pectoris 12/15/2016 Cardiomyopathy, ischemic 12/15/2016 History of coronary artery stent placement 12/15 Social History Tobacco Use Types Packs/Day Years Used Date Smoking Tobacco: Never Smokeless Tobacco: Never Tobacco Cessation:Counseling Given: Yes Alcohol Use Standard Drinks/Week Comments No 0 (1 standard drink = 0.6 oz pur e alcohol) [facility] Utilities Answer Date Recorded In the past 12 months has [employer], gas, oil, or water [employer] threatened to shut off services in your [...] often do you attend chur ch or buddhism services? Never 02/29/2024 Do you belong to any clubs o r organizations such as mosque groups, unions, fraternal or athletic groups, or [...] any time in the past 12 m [facility], were you homeless or living in a [facility] (including now)? No 02/29/2024 Personal Safety Answer Date Recorded Have you ever been in or are you currently in a harmful physical or emotional relationship or is someone making you feel afraid or unsafe? Denies 02/28/2024 Comments Unknown Sex and Gender Information Value Date Recorded Sex Assigned at Not on file Legal Sex Female 12:09 AM BUDGET COORDINATOR Gender Identity Not on file Sexual Orientation Not on file Last Filed Vital Signs Vital Sign Reading Time Taken Comments Blood Pressure 145/57 03/01/2024 7:37 AM BUDGET COORDINATOR Pulse 76 03/01/2024 8:00 AM BUDGET COORDINATOR Temperature 36.5 C (97.7 F) 03/01/2024 7:37 AM BUDGET COORDINATOR Respiratory Rate 17 03/01/2024 7:37 AM BUDGET COORDINATOR Oxygen Saturation 98% 03/01/2024 7:37 AM BUDGET COORDINATOR Inhaled Oxygen Concentration - - Weight 86.3 kg (190 lb 4.1 oz) 03/01/2024 5:31 A M BUDGET COORDINATOR Height 152.4 cm (5') 02/28/2024 6:48 AM BUDGET COORDINATOR Body Mass Index 37.16 02/28/2024 6:48 AM BUDGET COORDINATOR Plan of Treatment Not on file Insurance [facility] UHC MEDICARE ADVANTAGE [employer] Advance Directives For more information, please contact: [phone] * Full Code (Latest Code Status on File) Date Activated Date Inactivated Comments 02/28/2024 11:33 AM 03/01/2024 4:04 PM Care Teams Library Specialist Relationship Specialty Start Date End Date Mega Che MD PCP - General 06/09/16
--- OUTSIDE RECORDS SUMMARY | 2024-06-13 11:48 | XMS_ITS | CONTINUITY OF CARE DOCUMENT ---
Author Name bhavna philippdavina Address Unknown Organization [facility] Address [address] [place] [address] [address] [place] [address] Phone [phone] Care Team Providers Care Wool Washing Machine Operator Name Role Phone Tomi Parham MD Unavailable [phone] Mega Che MD Unavailable [phone] Mega Che MD Unavailable PROBLEMS Condition Status Date Provider Notes Cardiology examination active Juliano fang Coronary Heart Disease active Juliano Jansen ach Diabetes, Type 2 active Juliano Man Hyperlipidemia active Juliano Man Hypertension active Juliano Man Myocardial Infarction active Juliano Cornejo ch (History of) CHF - diastolic active Juliano Man ENCOUNTERS Date Type Provider Location Encounter Diag nosis - In-person encounter Office Visit Tomi Parham MD [place] [facility] - In-person encounter Office Visit Tomi Parham MD [place] [facility] Cardiology examinationCoronary Heart DiseaseDiabetes, Type 2HyperlipidemiaHypertensio nMyocardial InfarctionCHF - diastolic VITAL SIGNS Date Observation Value Provider Body Mass Index (Ratio) 35.35 kg/m2 Kerwin Man blood pressure, diastolic 70 mm[Hg] Radha Barth blood pressure, systolic 122 mm[Hg] Leslie Barth oxygen saturation, oximetry 98 % Ninfa Brohman pulse rate 76 /min Ninfa Brohman respiratory rate E&M 12 /min Ninfa Brohman weight E&M 181 [lb_av] Ninfa Barth height E&M 60 [in_i] Ninfa Brohman blood pressure, cuff size regular Radha hdz Barth blood pressure, diastolic 61 mm[Hg] Shar [place] blood pressure, systolic 135 mm[Hg] Marina bolton [place] oxygen saturation, oximetry 97 % Karlene [place] pulse rate 76 /min Karlene [place] blood pressure, cuff size regular Shar forrester Chun height E&M 60 [in_i] Karlene Chun ALLERGIES Allergy Name Onset Date Reaction Criticality Status CODEINE High Criticality active HISTORY OF MEDICATION USE Medication Status Instructions Dates Provider Indications Com ments furosemide 20 mg tablet active TAKE 1 TABLET BY MOUTH TWICE A DAY 7 Janet Mayorgaple Jardiance 10 mg tablet active TAKE 1 TABLET BY MOUTH EVERY DAY 7 Tomi Parham MD furosemide 20 mg tablet completed TAKE 1 TABLET BY MOUTH TWICE A DAY - 5 Maya Isac furosemide 20 mg tablet completed Take 1 tablet by mouth once a day 5 - 7 Janet Stokes furosemide 20 mg tablet completed TAKE 1 [...] extended release 24 hr active Karlene Chun metformin (Glucophage XR) 500 mg tablet extended [...] Payer name Policy type / Coverage type [place] [employer] [facility] [facility] Medicaid 1 [id number] [facility] COMPLETE CARE [id number] (PPO C-SNP) Commercial insurance company [id number] ADVANCE DIRECTIVES Name Date DISCUSSED - NO DECISION MADE TREATMENT PLAN Date Name Performer Cardiology: H er updated medication list for this problem includes: Atorvastatin 20 Mg Tablet (Atorvastatin) Tomi Parham MD Cardiology: s violeta for cath, she had NSTEMI March 03, 2024 c ath showed patent LAD stent minimal CAD. done at E 02/28/24. Elevated LVEDP. Tomi Parham MD Cardiology:[facility]. H er updated medication list for [...] Hr (Metformin (glucophage xr)) Tomi Parham MD Cardiology[RxRsp]:Dino barclay is grossly neglegent in her diet, eats [...] visit add on Tomi Parham MD completed EKG Tomi Parham MD compl eted EKG Tomi Parham MD compl eted
[2024-06-13 11:56] LABS: Hemoglobin A1C 6.3 % (<5.7); LDL Cholesterol Direct 39 mg/dL
[2024-06-13 12:14] LABS: Creatinine Urine 25.6 mg/dL
[2024-06-13 12:18] LABS: MALB Creatinine Ratio 25.4 mg/g (0-30); Microalbumin Urine Random 6.5 mg/L (0-16.7)
== END 2024-06-13 10:32 | disposition home or self-care (01) ==
PROVIDERS: PCP Family Medicine; Visit Provider Family Medicine
DX: E11.9 Type 2 diabetes mellitus without complications (principal); I10 Essential (primary) hypertension; M10.9 Gout, unspecified; E78.5 Hyperlipidemia, unspecified; Z13.220 Encounter for screening for lipoid disorders
CPT/HCPCS: 36415; 80048; 80061; 80076; 82043; 83036; 84443; 84550; 85027

== ENCOUNTER 2025-02-24 14:29 | Emergency (ER) | payer MEDICARE, MEDICAID, SELFPAY ==
--- NOTE | ~2025-02-24 | CT_ITS ---
EXAMINATION: CT abdomen pelvis w con DATE: 02/24/2025 17:16 INDICATION: 79-year-old female with right-sided abdominal pain. TECHNIQUE: Computed tomography (CT) of the abdomen and pelvis was performed with 100 cc of contrast intravenous contrast. Automated exposure control and iterative reconstruction technique were employed. The dose-length product was 674.17 mGy-cm. COMPARISON: Ultrasound abdomen 03/28/2024. CT abdomen pelvis, 05/12/2018. FINDINGS: Lung bases do not show acute findings. Severe coronary artery calcification of proximal left anterior descending coronary artery. No focal lesions of liver and spleen. Gallbladder is absent. Common bile duct measures 7 mm. Pancreas shows no acute findings. Kidneys do not show calculi are obstruction. 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 Calcific changes at the origin of renal arteries on both sides. No evidence of small bowel obstruction. The appendix is not distinctly visible. Fecal impaction of rectosigmoid colon with few diverticula. No free fluid or free air. 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 IMPRESSION: 1. No acute findings noted in the upper abdomen and pelvis. 2. 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 Stable calcified aneurysm of splenic artery. 3. Severe coronary artery calcification of left anterior descending coronary artery. Reviewed, dictated and finalized at location [facility]. [employer] IMPRESSION: 1. No acute findings noted in the upper abdomen and pelvis. 2. Significant calcific atherosclerotic changes of superior mesenteric artery a nd proximal renal arteries. Stable calcified aneurysm of splenic artery. 3. Severe coronary artery calcification of left anterior descending coronary ar manny.
--- OUTSIDE RECORDS SUMMARY | 2025-02-24 14:31 | XMS_ITS | Encounter Summary ---
Author Organization [facility] Healthcare Address [address] [place] [address] Care Team Providers Care Aluminum Welder Name Role Phone Mega Che MD Primary Care Provider [phone] Encounter Details Date Type Department Care Team (Late st Contact Info) Description 05/11/2017 Orders Only [facility] Information Management [address] [place] [id number] Scanning, Provider Social History Tobacco Use Types Packs/Day Years Used Date Smoking Tobacco: Never Smokeless Tobacco: Never Alcohol Use Standard Drinks/Week Comments No 0 (1 standard drink = 0.6 oz pur e alcohol) Comments Unknown Sex and Gender Information Value Date Recorded Sex Assigned at Not on file Legal Sex Female 12:09 AM CHART SNATCHER Gender Identity Not on file Sexual Orientation Not on file documented as of this encounter Plan of Treatment Not on file documented as of this encounter Procedures Procedure Name Priority Date/Time Associated Diagnosis Comments SCAN - RADIOLOGY/IMAGING 05/11/2017 SCAN - LABS 05/11/2017 documented in this encounter Results * SCAN - LABS (05/11/2017) us Provider Scanning Final Result * SCAN - RADIOLOGY/IMAGING (05/11/2017) Anatomical Region Laterality Modality Other us Provider Scanning Final Result documented in this encounter Visit Diagnoses Not on filedocumented in this encounter Care Teams Aluminum Welder Relationship Specialty Start Date End Date Mega Che MD PCP - General 06/09/16 documented as of this encounter
--- OUTSIDE RECORDS SUMMARY | 2025-02-24 14:31 | XMS_ITS | Data Portability ---
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 Lab glycohemogl obin, total, blood 2023 [facility] (Lab), [address] [place], [address], 20:51:40 CMP, serum or plasma 2023 [facility] (Lab), [address] [place], [address], 19:35:31 Referral None recorded. Procedures None recorded. Surgeries None recorded. Imaging US, duplex, venous, lower extremity, complete - BILATERA L 2023 [facility], [address], [address], 18:07:54 Medication Orders tramadol 50 mg tablet 2023 [facility] #[id number], [address] [facility], [place], [address], 4 12:09:50 hydralazine 50 mg tablet 2023 024 [id number] [facility][id number], [address], [place], [address], 05:07:44 Augmentin 875 mg-125 mg tablet 2023 024 [email or web address] 52 [facility]/Pharmacy #[id number], [address], [place], [address], 12:32:36 Augmentin 875 mg-125 mg tablet 2023 024 [email or web address] 52 [facility]/Pharmacy #[id number], [address], [place], [address], 12:32:36 Patient TargetsNo targets recorded. Patient Instructions Encounter Date Encounter Id Patient Instructions Last Modified By Organization Details Last Modified Time 03/07/2024 [id number] Thank you for your visit to our [...] at home, please call us to discuss. [email or web address] Not available 03/07/2024 11:33:18 Homebound Status: Required Home Health Services: Durable Medical Equipment needed: Billing Guidelines CPT code 67590- Transitional Care Management services with moderate medical decision complexity (qand-sv-zgqw visit within 14 days of discharge). CPT code 45457- Transitional Care Management services with high medical decision complexity (urqp-ns-sior visit within 7 days of discharge). [email or web address] Not available 03/07/2024 11:33:18 Reason for Referral None Reported. Results Created Date Observation Date Name Description Value Unit Range Abnormal Flag Note LastModifiedBy Organization Detail LastModifiedTime 12/22/19 24 12/22/2023 COMPR EHENS ADAIR METAB OLIC PANEL sodium 138 mmol/ L 137-[address] [facility] (Lab) [address] [place], [address], 12/22/2023 19:35:31 12/22/1912/22/2023 COMPR EHENS ADAIR METAB OLIC PANEL potassium 4.2 mmol/ L 3.5-5. [address] [facility] (Lab) [address] [place], [address], 12/22/2023 19:35:31 12/22/1912/22/2023 COMPR EHENS ADAIR METAB OLIC PANEL chloride 103 mmol/ L 98-107 Not Available [facility] (Lab) [address] [place], [address], 12/22/2023 19:35:31 12/22/19 24 12/22/2023 COMPR EHENS ADAIR METAB OLIC PANEL carbon dioxide 26 mmol/ L 22-30 Not Available [facility] (Lab) [address] [place], [address], 12/22/2023 19:35:31 12/22/19 24 12/22/2023 COMPR EHENS ADAIR METAB OLIC PANEL anion gap 13.2 mmol/ L 14-22 low Not Available [facility] (Lab) [address] [place], [address], 12/22/2023 19:35:31 12/22/19 24 12/22/2023 COMPR EHENS ADAIR METAB OLIC PANEL glucose 181 mg/dL 70-99 high Not Available [facility] (Lab) [address] [place], [address], 12/22/2023 19:35:31 12/22/19 24 12/22/2023 COMPR EHENS ADAIR METAB OLIC PANEL BUN 13 mg/dL 8-19 Not Available [facility] (Lab) [address] [place], [address], 12/22/2023 19:35:31 12/22/1912/22/2023 COMPR EHENS ADAIR METAB OLIC PANEL creatinine 0.41 mg/dL 0.66-1 .25 low Not Available [facility] (Lab) [address] [place], [address], 12/22/2023 19:35:31 12/22/19 24 12/22/2023 COMPR EHENS ADAIR METAB OLIC PANEL GFR >60 Refer ence Range : [place] ge GFR Healt hy Adult : >60 [...] or ethni c subgr oups, such as Hisct nics. Outsi de the valid ated nu [...] calcu lator is avail able on the NKF websi te: https ://sylvia chahal.melany ralph/pr chasess elyseal s/kdo qi/gf r_cal culat or Not Available [facility] (Lab) [address] [place], [address], 12/22/2023 19:35:31 12/22/19 24 12/22/2023 COMPR EHENS ADAIR METAB OLIC PANEL alkaline phosphatase 187 U/L 38-126 high Not Available [facility] (Lab) [address] [place], [address], 12/22/2023 19:35:31 12/22/19 24 12/22/2023 COMPR EHENS ADAIR METAB OLIC PANEL alanine aminotransfe rase 38 U/L 0-35 high Not Available [facility] (Lab) [address] [place], [address], 12/22/2023 19:35:31 12/22/1912/22/2023 COMPR EHENS ADAIR METAB OLIC PANEL aspartate aminotransfe rase 35 U/L 15-37 Not Available [facility] (Lab) [address] [place], [address], 12/22/2023 19:35:31 12/22/19 24 12/22/2023 COMPR EHENS ADAIR METAB OLIC PANEL bilirubin, total 1.00 mg/dL 0.20-1 .30 Not Available [facility] (Lab) [address] [place], [address], 12/22/2023 19:35:31 12/22/19 24 12/22/2023 COMPR EHENS ADAIR METAB OLIC PANEL calcium 9.5 mg/dL 8.4-10 .2 Not Available [facility] (Lab) [address] [place], [address], 12/22/2023 19:35:31 12/22/19 24 12/22/2023 COMPR EHENS ADAIR METAB OLIC PANEL total protein 5.9 g/dL 6.3-8. 2 low Not Available [facility] (Lab) [address] [place], [address], 12/22/2023 19:35:31 12/22/19 24 12/22/2023 COMPR EHENS ADAIR METAB OLIC PANEL albumin 3.6 g/dL 3.0-4. 4 Not Available [facility] (Lab) [address] [place], [address], 12/22/2023 19:35:31 12/22/19 24 12/22/2023 COMPR EHENS ADAIR METAB OLIC PANEL globulin 2.3 g/dL 2.6-4. 2 low Not Available [facility] (Lab) [address] [place], [address], 12/22/2023 19:35:31 12/22/19 24 12/22/2023 COMPR EHENS ADAIR METAB OLIC PANEL A/G ratio 1.6 ratio 1.0-2. 0 Not Available [facility] (Lab) [address] [place], [address], 12/22/2023 19:35:31 12/22/19 24 12/22/2023 HEMOG LOBIN A1C HA1C 7.6 % 4.0-6. 0 high Diabe petros Scree zaida Crite chung: <5.7% Consi stent with absen ce of diabe petros 5.7-6 .4% Consi stent with incre ased risk for diabe petros (pred iabet es) >OR=6 .5% Consi stent with diabe petros REFER ENCE: Diabe petros Care 2016, 39(Triplett ppl.1 ):s13 -s22 Not Available [facility] (Lab) [address] [place], [address], 12/22/2023 20:51:40 10/06/19 24 10/06/2023 scree zaida william t diane, bilat [facility] [address] [place] [address] [phone] Patien t Name: GEORGETTE JAQUEZ ion #: [id number] Sex: F : 1945 7 Dictat [...] at 2023 15:13: 49 PM Page 1 [email or web address] [facility] (Imaging) [address] [place], [address], 10/07/2023 14:08:39 10/06/19 24 10/06/2023 DEXA, axial skele ton [facility] [address] [place] [address] [phone] Patien t Name: GEORGETTE JAQUEZ ion #: [id number] Sex: F : 1945 7 Dictat ed By: Marisela Persaud Attend ing Physic diane: ELIJAH CHE ER Orderi ng Physic diane: SHAHZAD ELIJAH ER Exam Date: 2023 13:52 PM Exam Name: XR DEXA-H IPS PELVIS SPINE Admitt ing Diagno sis(es ): INDICA TION: ASYMPT OMATIC MENOPA USAL STATE. Postme nopaus al osteop orosis . Patien t in wheel hair. Forear m only was able to [...] ent. T-scor e: compar yarelis by lizzie fuentes deviat ion (SD) to a young adult popula [...] d of T-scor e WHO Page 1 [facility] [address] [place] [address] Patien t Name: GEORGETTE JAQUEZ ion #: [id number] Sex: F : 1945 7 Dictat ed By: Marisela Dejesus ing Physic diane: SHAHZAD ANNE Physic diane: ELIJAH CHE Exam Date: 2023 13:52 PM Exam Name: XR DEXA-H IPS PELVIS SPINE Admitt ing Diagno sis(es ): criter ia 4) <-2.0: below expect ed range/ low bone densit y for age, and a cause should be sought Electr onical ly Signed by: Marisela Persaud at 2023 15:20: 28 PM Page 2 [email or web address] [facility] ([facility]) [address] [place], [address], 10/07/2023 14:08:40 10/15/19 24 10/14/2023 US, duple x, venou s, lower extre mity, compl ete No observ ation record ed. [email or web address] [facility] [address], [place], [address], 10/20/2023 12:42:33 11/12/19 24 11/12/2023 XR, chest , 1 view No observ ation record ed. [email or web address] Not Available 2023 10:10:50 01/17/20 24 01/17/2024 CT, cervi nicko spine , w/wo contr ast No observ ation record ed. BARCODE Not Available 2023 18:10:18 03/24/19 25 03/20/2024 sleep study , diagn ostic (PROC ) No observ ation record ed. [email or web address] Not Available 2024 13:07:38 Result Notes Documentation Provider Name and Address Organization Details Recorded Time Dexa, Axial Skeleton : [facility] [address] [place] [address] Patient Name: GEORGETTE CRAVEN Sex: F : 1945 Dictated By: Riky Persaud Attending Physician: MAURI CHE Ordering Physician: MAURI CHE Exam Date: 10/06/2023 13:52 PM Exam Name: XR DEXA-HIPS PELVIS SPINE Admitting Diagnosis(es): INDICATION: ASYMPTOMATIC MENOPAUSAL STATE. Postmenopausal osteoporosis. Patient in wheelchair. Forearm only was able to be performed. TECHNIQUE: DEXA SCAN BONE DENSITY REPORT: LEFT forearm TOTAL : T Score: -4.1 IMPRESSION: Osteoporosis left forearm --- *FRAX version 3.08. Fracture probability calculated for an untreated patient. Fracture probability may be lower if the patient has received treatment. T-score: comparison by standard deviation (SD) to a young adult population, matched for sex and ethnicity (used for postmenopausal women and men >50 years) and classified by WHO criteria. -1.0: normal <-1.0 to >-2.5: osteopenia -2.5: osteoporosis -2.5 plus fragility fracture: severe osteoporosis Z-score: compared by SD to an age, sex, and ethnicity population (used for premenopausal women, men <50 years, and children instead of T-score WHO Page [address] [place] [address] Patient Name: GEORGETTE CRAVEN Sex: F : 1945 Dictated By: Riky Persaud Attending Physician: SHAHZAD DOTSON Ordering Physician: MAURI CHE Exam Date: 10/06/2023 13:52 PM Exam Name: XR DEXA-HIPS PELVIS SPINE Admitting Diagnosis(es): criteria 4) <-2.0: below expected range/low bone density for age, and a cause should be sought Page 2 NAYELI Boyle HI [facility] 10/07/2023 14:08:40 Problems Name Problem SNOMED Code Status Onset Date Resolution Date Notes Provider Name and Address Organization Details Recorded Time Gastroesop hageal reflux disease 457125374 Active 2016 Not Available [facility] 3 01:20:32 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 Not Available [facility] 3 01:20:32 Obesity 089029172 Active 2016 Not Available [facility] 3 01:20:32 Coronary arterioscl erosis 43306869 Active 2016 Not Available [facility] 3 01:20:32 Hyperlipid emia 13679791 Active 2016 Not Available [facility] 3 01:20:32 Essential hypertensi on 65532426 Active 2016 Not Available [facility] 3 01:20:33 Diabetes mellitus 69489805 Active 2016 Not Available [facility] 3 01:20:33 Neck pain 88599080 Completed 201601/18/2017 Mauri Che MD [address] [place] [address], [address] , [email or web address] 4 17:07:05 Edema 821070183 Completed 201608/31/2017 [facility] Available [facility] 3 01:20:32 Edema of lower extremity 424099073 Completed 201708/31/2017 Not Available [facility] 3 01:20:31 Overactive urinary bladder 407599693 Active 2020 Not Available [facility] 3 01:20:33 Low back pain 658922974 Active 2021 Not Available [facility] 3 01:20:32 Vitamin D deficiency 34719545 Active 2021 Not Available [facility] 3 01:20:32 Osteoporos is 55273698 Active 2021 Not Available [facility] 3 01:20:33 Finding of body mass index 741452950 Completed 202111/13/2021 Not Available [facility] 3 01:20:32 Gout 72955591 Active 2021 Not Available [facility] 3 01:20:33 Diarrhea 44026318 Completed 202103/19/2023 Alexa alvarado, PASQUALE null, [email or web address] 4 10:09:35 Osteoarthr itis 413422099 Active 2022 Alexa Sukh alvarado RMA null, [facility] 4 10:09:26 Pruritic rash 15664018 Completed 202203/19/2023 Alexa Sukh alvarado RMA null, [facility] 4 10:09:30 Adult health examinatio n Active 2023 Alexa Sukh alvarado, RMA null, [facility] 4 10:09:45 Swelling of bilateral lower limbs 093435568 Active 2023 Mauri Che MD [address], [place], [address] , [facility] 4 16:39:43 Infection of nail 163496995 Active 2023 Mauri Che MD [address], [place], [address] , [facility] 4 16:40:27 Type 2 diabetes mellitus without complicati on 445235713 Active 2023 Anne Bah LPN null, [facility] 4 12:32:15 Neck pain 10541118 Active 2023 Mauri Che MD [address], [place], [address] , [facility] 4 17:07:05 Problem Notes None recorded. Procedures Surgical History Date Name Laterality Status Provider Name and Address Organization Details Recorded Time 024 Transitional_Care_ Management completed Patricia Hussein [facility] 03/07/2024 11:33:19 024 Medicare Wellness CPT Code, subsequent completed Riri Szymanski RN [facility] 08/18/2023 10:17:38 023 Medicare Wellness CPT Code, subsequent completed Lela Linares RN [facility] 06/24/2022 14:56:24 022 Date of Last Mammogram completed Lela Linares RN [facility] 06/24/2022 14:57:15 022 Most Recent Bone Density completed Lela Linares RN [facility] 06/24/2022 14:57:31 017 Date of Last Colonoscopy completed Not Available [facility] 05/06/2022 01:05:37 Foot Surgery completed [facility] 05/[facility]/2022 01:05:40 [facility]ste[facility], Partial completed [facility] 01:05:40 [facility] 01:05:40 Unlisted px femur/knee completed Not Available [facility] 05/06/2022 01:05:40 Neck spine disk surgery completed Not Available [facility] 05/06/2022 01:05:40 Carpal tunnel surgery completed Not Available [facility] 05/06/2022 01:05:40 Stent Placement [facility]/06/2022 01:05:40 Appendectomy completed [facility] 05/06/2022 01:05:40 Imaging Results None recorded. Procedure Notes None recorded. Medical Equipment None Reported. Allergies Allergen ID Allergen Name Allergen Category Reaction Reaction Severity Criticality Documentation Date Start Date Code Code System Note Provider Name and Address Organization Details Recorded Time 2858 codeine medicatio n nausea Not available Not available 05/06/2022 2670 RxNorm Not Available [facility] 01:38:49 Medications Name Sig Start Date Stop [...] TABLET BY MOUTH ONE TIME PER WEEK 2024 active ESTEPHANIA 01/27/24 NOV 08/31/24 ok to rf Not Available Not Available Not Available metoprolo l succinate ER 100 mg tablet,ex tended release 24 hr TAKE 1 TABLET BY MOUTH EVERY DAY 2024 active ESTEPHANIA 01/27/24 NOV 07/04/24 ok to rf Not Available Not [...] A DAY NEEDED 2024 active ESTEPHANIA 01/27/24 NOV 07/04/24 Last fill 03/07/24 Not Available Not Available Not Available triamcino lone acetonide 0.1 % topical cream APPLY THIN COAT TO AFFECTED AREA TWICE A DAY 03/19 completed Not Available Not Available Not Available spironola ctone 25 mg tablet TAKE 1 TABLET BY MOUTH EVERY DAY active Not Available Not Available No t Available glimepiri de 1 mg tablet TAKE 1 TABLET BY MOUTH TWICE A DAYWILLYE DS APPT FOR FURTHER REFILLS* * 2024 active Not Available Not Available Not [...] Not Available Not Available No t Available metformin 1,000 mg tablet Take 1 tablet twice a day by oral route. 06/11 completed 500 mg TID changed on 03/22/17 Not Available Not Available Not Available warfarin 5 mg tablet Take 1 tablet every day by oral route. 07/03 completed WArfarin stopped By RM keep taking plavix Not Available Not Available Not Available indometha allsion 25 mg capsule Take 1 capsule 3 times a day by oral route. 04/13 completed Not Available Not Available Not Available omeprazol e 20 mg capsule,d elayed release TAKE ONE CAPSULE BY MOUTH TWICE DAILY active Not Available Not Available No t Available allopurin ol 300 mg tablet TAKE 1 TABLET BY MOUTH EVERY DAY active Not Available Not Available No t Available hydralazi ne 50 mg tablet TAKE 1 TABLET BY MOUTH TWICE A DAY active Not Available Not Available No t Available furosemid e 20 mg tablet Take [...] Not Available Not Available No t Available valsartan 160 mg tablet TAKE ONE [...] height Body temperature Heart rate Oxygen saturation Systolic And Diastolic Provider Name and Address Organization Details Last Updated DateTime 4 152.4 cm 98.1 [degF] 77 /min 96 % 140/70 mm[Hg] Alexa pratt [facility] 4 15:58:24 Date Recorded Body height Body temperature Heart rate Oxygen saturation Systolic And Diastolic Provider Name and Address Organization Details Last Updated DateTime 4 152.4 cm 97.5 [degF] 75 /min 98 % 152/70 mm[Hg] Alexa Pandey terence [facility] 4 15:58:41 Date Recorded Body height Body temperature Heart rate Oxygen saturation Systolic And Diastolic Provider Name and Address Organization Details Last Updated DateTime 4 152.4 cm 97.2 [degF] 64 /min 98 % 138/80 mm[Hg] Alexa Pandey terence [facility] 4 09:53:18 Date Recorded Body height Oxygen saturation Heart rate Body temperature Systolic And Diastolic Provider Name and Address Organization Details Last Updated DateTime 4 152.4 cm 96 % 75 /min 97.3 [degF] 144/60 mm[Hg] Alexa Pandey terence [facility] 4 16:47:43 Date Recorded Body temperature Heart rate Oxygen saturation Systolic And Diastolic Provider Name and Address Organization Details Last Updated DateTime 03/07/2024 97.1 [degF] 77 /min 97 % 138/60 mm[Hg] Patricia TYLER - [facility] 4 11:44:35 Social History Question Answer Notes LastModified by Organizat ion Details LastModified Time Tobacco Smoking Status Never Smoker Not Available [facility] 05/06/2022 01:05:09 Do You Have An Advance Directive? Yes [id number] Information not available 05/06/2022 Are You Blind Or Do You Have Difficulty Seeing? No MIGRATION.115425 0687 Information not available 05/06/2022 What Is Your Level Of Caffeine Consumption? Moderate MIGRATION.188354 3638 Information not available 05/06/2022 How Much Tobacco Do You Chew? None MIGRATION.306589 7514 Information not available 05/06/2022 Are You Deaf Or Do You Have Serious Difficulty Hearing? No MIGRATION.223448 9660 Information not available 05/06/2022 What Type Of Diet Are You Following? REGULAR MIGRATION.919469 9780 Information not available 05/06/2022 Which Illicit Or Recreational Drugs Have You Used? None MIGRATION.727342 7901 Information not available 05/06/2022 Have There Been Any Changes To Your Family Or Social Situation? No MIGRATION.011643 6979 Information not available 05/06/2022 What Is The Fluoride Status Of Your Home? Fluoridated MIGRATION.940022 9586 Information not available 05/06/2022 Are There Any Guns Present In Your Home? No MIGRATION.070555 7739 Information not available 05/06/2022 Where Do You Live? SingleLevelHouse MIGRATION.445634 9331 Information not available 05/06/2022 Presence Of Domestic Violence No [email or web address] Information not available 06/24/2022 Guns Present In The Home? No [email or web address] Information not available 08/18/2023 Are You Able To Care For Yourself? Yes [email or web address] Information not available 08/18/2023 Are You Blind Or Do Yo Have Difficulty Seeing? No [email or web address] Information not available 08/18/2023 Are You Deaf Or Do You Have Serious Difficulty Hearing? No [email or web address] Information not available 08/18/2023 Live Alone Of With Others? Alone [email or web address] Information not available 08/18/2023 What Was The Date Of Your Most Recent Tobacco Screening? 08/18/2023 [email or web address] Information not available 08/18/2023 Do You Have Any Pets? Yes MIGRATION.155406 8410 Information not available 05/06/2022 What Is Your Relationship Status? MIGRATION.268871 9793 Information not available 05/06/2022 Do You Use Your Seat Belt Or Car Seat Routinely? Yes MIGRATION.774570 6354 Information not available 05/06/2022 Do You Have Smoke And Carbon Monoxide Detectors In Your Home? Yes MIGRATION.908459 1350 Information not available 05/06/2022 Are You Passively Exposed To Smoke? No MIGRATION.183583 3396 Information not available 05/06/2022 Are There Any Smokers In Your House? No MIGRATION.884622 8272 Information not available 05/06/2022 How Much Tobacco Do You Smoke? No MIGRATION.638519 4895 Information not available 05/06/2022 Do You Use Sunscreen Routinely? No MIGRATION.304382 5097 Information not available 05/06/2022 Do You Have Difficulty Walking Or Climbing Stairs? Yes MIGRATION.969844 2511 Information not available 05/06/2022 Sex: Female Functional Status Question Answer Note LastModified by [employer] ion Details LastModified Time What is your level of alcohol consumption? None MIGRATION.241491 7494 Information not available 05/06/2022 Do you or have you ever used smokeless tobacco? Never used smokeless tobacco MIGRATION.903755 4571 Information not available 05/06/2022 Do you have transportation difficulties? No MIGRATION.099884 3851 Information not available 05/06/2022 Are you able to walk independently without assistance or assistive devices? NOINDWHEEL MIGRATION.825298 7781 Information not available 05/06/2022 Do you have difficulty doing errands alone? No MIGRATION.862709 3626 Information not available 05/06/2022 Are you able to care for yourself independently? Yes MIGRATION.344497 8366 Information not available 05/06/2022 What is your occupation? Retired MIGRATION.787872 7034 Information not available 05/06/2022 Do you have difficulty dressing, bathing, grooming, or toileting? No MIGRATION.984838 1754 Information not available 05/06/2022 Do you or have you ever used e-cigarettes or vape? Never used electronic cigarettes MIGRATION.865094 3286 Information not available 05/06/2022 What is your exercise level? None MIGRATION.598323 1118 Information not available 05/06/2022 Mental Status Question Answer Note LastModified by Organizat ion Details LastModified Time Do you feel stressed (tense, restless, nervous, or anxious, or unable to sleep at night)? [id number] Information not available 06/24/2022 Do you have difficulty concentrating, remembering or making decisions? No MIGRATION.[id number] 26 Information not available 05/06/2022 Family History Relationship Description Onset Age of this Age Resolved Age Notes LastModified by Organization Details LastModified Time Father Heart disease MIGRATION.421 [id number] Not available 05/06/2022 01:05:48 Father Essential hypertension MIGRATION.866 [id number] Not available 05/06/2022 01:05:48 Mother Heart disease MIGRATION.288 [id number] Not available 05/06/2022 01:05:48 Mother Essential hypertension MIGRATION.328 [id number] Not available 05/06/2022 01:05:48 Brother Heart disease MIGRATION.786 [id number] Not available 05/06/2022 01:05:48 Medical History No medical history recorded. Gynecological History Statement/Question Response Date of Last Mammogram 06/30/2018 Date of Last Colonoscopy 10/07/2016 Date of Last Mammogram 07/09/2021 Most Recent Bone Density 07/09/2021 Obstetrics History GPAL:G 0 P 0 0 0 0 Past Encounters Encounter ID Performer Location Encounter Start Date Encounter Closed Date Diagnosis/Indication Diagnosis SNOMED-CT Code Diagnosis ICD10 Code Diagnosis IMO Codes Diagnosis Note [id number] MD PRICILA Harmon[facility] [address] [place] [address] 05/09/2020 00:00:00 05/09/2020 12:52:20 [id number] MD CHIDI [facility] [address] [address] 08/09/2020 00:00:00 08/16/2020 13:01:27 [id number] MD CHIDI Harmon Internal Med [facility] [address] [place] [address] 10/10/2020 00:00:00 10/10/2020 15:02:25 [id number] Mauri Che MD [facility] Internal [address] [place] [address] 02/06/2021 00:00:00 02/06/2021 15:43:17 [id number] Mauri Che MD [facility] Internal [address] [place] [address] 06/09/2021 00:00:00 06/09/2021 17:00:35 [id number] Mauri Che MD [facility] Internal [address] [place] [address] 10/08/2021 00:00:00 10/08/2021 13:42:17 [id number] Mauri Che MD [facility] Internal [address] [place] [address] 11/13/2021 00:00:00 11/13/2021 15:41:57 [id number] Mauri Che MD [facility] Internal [address] [place] [address] 02/13/2022 00:00:00 02/13/2022 11:49:56 [id number] Mauri Che MD [facility] Internal [address] [facility] [place] [address] 06/24/2022 14:40:02 06/24/2022 15:11:44 Diabetes mellitus 85936573 E11.9 under control Essential hypertension 24045925 I10 under control Gastroesop hageal reflux disease 668006342 K21.9 stable Hyperlipidemia 05228319 E78.5 stable Obesity 760809484 E66.9 advised to lose Coronary arteriosclerosis 22580007 I25.10 no symptoms Post polio myelitis syndrome 20304055 G14 in wheel chair Overactive urinary bladder 974189307 N32.81 samples Vitamin D deficiency 347 37138 E55.9 to take otc Low back pain 030739119 M54.50 Gout 04733522 M10.9 no flare up Osteoporosis 51703841 M8 1.0 to start meds after dentAL W/U Adult [facility] examination 617000909 Z00.00 Screening for disorder 424544116 Z13.9 Long-term drug therapy 359798100 Z79.899 Pruritic rash 25392435 L 28.2 its hard for her to reach her back to apply the cream [id number] Mauri Che MD [facility] Internal [facility] [address] [facility] 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 Internal [facility] [address] [facility] [place] [address] 03/19/2023 10:02:20 03/19/2023 10:37:30 Diabetes mellitus 92924929 E11.9 advised to watch diet Essential hypertension 67365687 I10 under control Gastroesop hageal reflux disease 702753118 K21.9 stable Hyperlipidemia 46140951 E78.5 stable with meds Obesity 607807320 E66.9 advised to lose Coronary arteriosclerosis 55377450 I25.10 no symptoms Post polio myelitis syndrome 13836299 G14 in wheel chair Overactive urinary bladder 195890303 N32.81 meds help Vitamin D deficiency 347 70980 E55.9 otc Low back pain 623397496 M54.50 tramadol prn Gout 12224832 M10.9 no flare up Osteoporosis 73028638 M8 1.0 dos not want meds due to possible side effects Adult [facility] examination 628008788 Z00.00 Mammogram- 07/2021- ORDEREDCol onoscopy 2017Pap per pt years agoDex2DOES NOT WANT PNEUMOVAXF nara- DENIED Screening mammography 24 871454 Z12.31 was ordered, still did not get [id number] Mauri Che MD [facility] Internal Med [address] [place] [address] 08/18/2023 09:48:07 08/18/2023 10:27:42 Diabetes mellitus 19001959 E11.9 advised to watch diet, lose weight Essential hypertension 03443810 I10 under control Gastroesop hageal reflux disease 444436108 K21.9 stable Hyperlipidemia 55085749 E78.5 stable with meds Obesity 232028941 E66.9 advised to lose Coronary arteriosclerosis 82738354 I25.10 no symptoms Post polio myelitis syndrome 36642632 G14 in wheel chair Overactive urinary bladder 949992105 N32.81 meds help Vitamin D deficiency 347 99724 E55.9 otc Low back pain 739874472 M54.50 tramadol prn Gout 06424593 M10.9 no flare up Osteoporosis 99719351 M8 1.0 does not want meds due to possible side effects Adult [facility] examination 929368666 Z00.00 Mammogram- 07/2021- ORDEREDCol onoscopy 2017Pap per pt years agoDexa-2DOES NOT WANT PNEUMOVAXF nara- DENIED Osteoarthritis 686835219 M19.90 Screening mammography 24 140461 Z12.31 was ordered, still did not get Postmenopausal state 764 31753 Z78.0 Screening for disorder 802951262 Z13.9 [id number] Mauri Che MD [facility] Internal [address] [place] [address] 09/29/2023 15:26:23 09/29/2023 16:49:59 Swelling of bilateral lower limbs 770587908 M79.89 Infection of nail 154638 000 L60.8 [id number] Mauri Che MD [facility] Internal [address] [place] [address] 11/10/2023 15:45:29 11/10/2023 16:18:39 Swelling of bilateral lower limbs 208925083 M79.89 stop amlodipine , start hydralazin e Infection of nail 910108 000 L60.8 [id number] Mauri Che MD [facility] Internal [address] [place] [address] 12/22/2023 09:41:28 12/22/2023 10:25:19 Diabetes mellitus 91498699 E11.9 advised to watch diet, lose weight Essential hypertension 80825397 I10 under control Gastroesop hageal reflux disease 483976264 K21.9 stable Hyperlipidemia 01627639 E78.5 stable with meds Obesity 229366398 E66.9 advised to lose Coronary arteriosclerosis 07521043 I25.10 no symptoms Post polio myelitis syndrome 18690451 G14 in wheel chair Overactive urinary bladder 330127360 N32.81 meds help Vitamin D deficiency 347 74836 E55.9 takes otc Low back pain 994410642 M54.50 tramadol prn Gout 56608157 M10.9 no flare up Osteoporosis 90077854 M8 1.0 does not want meds due to possible side effects Adult heal th examination 528871913 Z00.00 Mammogram- 10/06/23Co lonoscopy 2017Pap per pt years agoDexa-4DO ES NOT WANT PNEUMOVAXF nara- DECLINED- 2023 Osteoarthritis 368796883 M19.90 otctramado l prn [id number] Mauri Che MD [address] [address] 01/27/2024 16:25:56 01/27/2024 17:09:07 Neck pain 31585483 M54.2 much better, stretching discussed, heating pad [id number] Mauri Che MD [facility] Internal [address] [place] [address] 03/07/2024 11:30:59 03/07/2024 12:14:20 Transition of care 2165960244 105 Z75.8 Osteoarthritis 000114582 M19.90 would like refill of pain meds, she has chronic arthritis and pain Health Concerns Section Related Observation LastModified by Organization Detai ls LastModified Time None Recorded Concern Status LastModified by Organization Details LastModified Time None Recorded Advance Directives Directive Y: Payers Insurance Date Sequence Insurance Name Policy Number Policy Gonzalez Covered Member ID Gonzalez Member ID Guarantor Name 08/30/2024 2 [place] [employer] Georgette Coreylatasha [id number] Georgette Walker Herber 08/28/2024 1 [facility] (MEDICARE REPLACEMENT/A DVANTAGE - PPO) [id number] Georgette Walker Herber [id number] Georgette Walker Herber Notes Date Note Type Note Provider Name and Address Organization Details Recorded Time 09/29/2023 text/html ROS as noted in the HPI She is here today for Bilateral leg/foot swelling. She hit her left foot on her bird cage and now her big toe is swollen and the right foot has been swelling for the last 2 weeks. She has been wearing compression stockingsSHE HAD SOME BLEEDING FROM THE NAILno sob, no fever Mauri Che MD [address], [place], [address], [employer] 09/29/2023 16:41:46 11/10/2023 text/html ROS as noted in the HPI Pt is here today for 2 different [...] Che MD [address], [place], [address], [email or web address] 11/10/2023 16:13:41 12/22/2023 text/html Pt is here [...] all the times Mauri Che MD [address] [facility], [place], [address], [email or web address] 12/22/2023 10:20:11 01/27/2024 text/html ROS as noted in the HPI Pt is here today for a ER follow upShe [facility] for neck painCT neck showed old fusion and spinal stenosis and arthritis but told her she probably had a pulled muscle and some arthritis. Was given oxycodone and flexeril.Pt states she feels better, she has more movement than she did beforepain is better Mauri Che MD [address] [facility], [place], [address], [email or web address] 01/27/2024 17:09:04 03/07/2024 text/html pt is here today for a hospital f/u at [facility] with a LHC on 02/28/24 bc of a mild heart attack 02/02/24 at [place]. sleep study for is scheduled 03/17/24. pt is experiencing lumbar pain onest 1wk. no injury,might of slept on it wrong while at hospital.. 4of10 pain level. tramadol at night . tramadol refill Mayela Solis NP [address] [facility], [facility] [address], [place], [address], [facility] [email or web address] 03/07/2024 12:30:44 OBGyn Episode No OBEpisode recorded.
--- OUTSIDE RECORDS SUMMARY | 2025-02-24 14:31 | XMS_ITS | Clinical Summary ---
Author Organization [facility] Healthcare Address [address] [place] [address] Care Team Providers Care Club Waiter/Waitress Name Role Phone Mega Che MD Primary [...] failure) 02/09/2024 Coronary artery disease invo lving [place] coronary artery of [place] heart without angina pectoris 12/15/2016 Cardiomyopathy, ischemic 12/15/2016 History of coronary artery stent placement 12/15 Surgical History Surgery Date Site/Laterality Comments CHOLECYSTECTOMY Cholecystectomy APPENDECTOMY HYSTERECTOMY CARPAL TUNNEL RELEASE Medical History Medical History Date Comments Chronic coronary artery disease Coronary artery disease Hypertension Hypertension Gastroesophageal reflux disease GERD Hx Other Medical history polio; Comments: [facility] 07/06/2014 -paralyzed waist down Hx Other Medical osteoarthritis; Comments: [facility] 07/06/2014 - Hx Other Medical history DVT; Co mments: [facility] 07/06/2014 - Hyperlipidemia CHF (congestive heart failure) ([facility]) Electric wheelchair dependence Type 2 diabetes mellitus Family History Medical History Relation Name Comments [...] drink = 0.6 oz pur e alcohol) [facility] Utilities Answer Date Recorded In the past 12 months has th e electric, gas, oil, or water company threatened to shut off services in your home? No 02/29/2024 Social Connection and Isolation Panel Answer Date Recorded In a typical week, how many times do you talk on the phone with family, friends, or neighbors? More than three times a week 02/29/2024 How often do you get togethe r with friends or relatives? More than three times a week 02/29/2024 How often do you attend chur ch or jehovah's witness services? Never 02/29/2024 Do you belong to any clubs o r organizations such as congregational groups, unions, fraternal or athletic groups, or [...] money to buy more. Never true 02/29/20 Within the past 12 months, t he [...] any time in the past 12 m [facility], were you homeless or living in a prison (including now)? No 02/29/2024 Personal Safety Answer Date Recorded Have you ever been in or are you currently in a harmful physical or emotional relationship or is someone making you feel afraid or unsafe? Denies 02/28/2024 Comments Unknown Sex and Gender Information Value Date Recorded Sex Assigned at Not on file Legal Sex Female 12:09 AM DIGITAL MANAGER Gender Identity Not on file Sexual Orientation Not on file Last Filed Vital Signs Vital Sign Reading Time Taken Comments Blood Pressure 145/57 03/01/2024 7:37 AM DIGITAL MANAGER Pulse 76 03/01/2024 8:00 AM DIGITAL MANAGER Temperature 36.5 C (97.7 F) 03/01/2024 7:37 AM DIGITAL MANAGER Respiratory Rate 17 03/01/2024 7:37 AM DIGITAL MANAGER Oxygen Saturation 98% 03/01/2024 7:37 AM DIGITAL MANAGER Inhaled Oxygen Concentration - - Weight 86.3 kg (190 lb 4.1 oz) 03/01/2024 5:31 A M DIGITAL MANAGER Height 152.4 cm (5') 02/28/2024 6:48 AM DIGITAL MANAGER Body Mass Index 37.16 02/28/2024 6:48 AM DIGITAL MANAGER Plan of Treatment Health Maintenance Due Date Last Done Comments Depression Screening 1945 Hepatitis C Screening 1945 Osteoporosis Screening-Bone Density Scan 1945 DTaP/Tdap/Td Vaccine (1 - Tdap) 1957 Hepatitis B Screening 1964 Pneumococcal vaccine 65+ (1 of 1 - PCV) 1996 Zoster Vaccine (1 of 2) 1996 Well Visit 65+ 09/26/2011 Influenza Vaccine (#1) 2024 Fall Risk Assessment 03/01/2025 03/01/2024 Insurance [facility] MEDICARE ADVANTAGE [facility] Address: [address] [address] [place] [address] [employer] Advance Directives For more information, please contact: [phone] * Full Code (Latest Code Status on File) Date Activated Date Inactivated Comments 02/28/2024 11:33 AM 03/01/2024 4:04 PM Care Teams Club Waiter/Waitress Relationship Specialty Start Date End Date Mega Che MD PCP - General 06/09/16
[2025-02-24 14:32] VITALS: BP 104/69; PULSE 67; RESP 20; TEMP 36.4; O2SAT 99
--- NOTE | 2025-02-24 15:15 | ED.ABDPAIN ---
HPI - Abdominal Pain General Chief Complaint: Abdominal Pain Stated Complaint: RIGHT SIDE PAIN Time Seen by Provider: 02/24/25 14:55 Source: patient and family Mode of arrival: wheelchair Limitations: no limitations History of Present Illness HPI narrative: This is a 79 year old female that presents to the ER for right sided abdominal pain. Reports a couple of days ago she bent forward to pick something up. [place] pain in the right side of her abdomen that has persisted since. Worse with movement. Reports she has history of polio and is paralized, has not been able to do transfers as well due to pain. Denies vomiting, diarrhea. Related Data Home Medications ?Medication ?Instructions ?Recorded ?Confirmed ?Last Taken ?Type cholecalciferol (vitamin D3) 125 125 mcg PO DAILY 12/03/23 02/15/25 Unknown History mcg (5,000 unit) capsule empagliflozin 10 mg tablet 10 mg PO DAILY 06/06/24 02/15/25 Unknown History (Jardiance) furosemide 20 mg tablet (Lasix) 20 mg PO BID 06/06/24 02/15/25 Unknown History spironolactone 25 mg tablet 12.5 mg PO DAILY 06/06/24 02/15/25 Unknown History glimepiride 1 mg tablet mg PO BID 07/24/24 02/15/25 Unknown History Allergies Allergy/AdvReac Type Severity Reaction Status Date / Time codeine Allergy Unknown Abdominal Verified 02/24/25 14:36 Pain Review of Systems Review of Systems: All systems reviewed & are unremarkable except as noted in HPI and below PMFSH Past Medical History Medical History Gout Polio Hypertension Chronic GERD Diabetes History of blood clots Arthritis Allergies Surgical History Surgical History H/O heart artery stent Family History Family History Father Family history of congestive heart failure, Onset Age: 75 Other Diabetes mellitus Family history of arthritis Family history of cardiovascular disease Hypertension Social History Social History (Reviewed 02/15/25 @ 13:32 by Janet B. Wuebbels, CENTER MACHINE SET UP OPERATOR, SENIOR ANALYST DEVELOPER) Smoking status: Never smoker Alcohol intake: never Substance use: never Substance use type: does not use Lack of Transportation: No Lack of Food: Never True Current Housing: I Have Housing Concerned About Future Housing: No Difficulty Paying Gas/Electric Bills: No Difficulty Paying for Meds: No Currently Unemployed: No Difficulty w/ Childcare or Family Care: No Exam Narrative: GENERAL: Well-appearing, well-nourished, and in no acute distress. HEAD: Normocephalic, atraumatic. EYES: EOMI. NECK: Supple. No adenopathy or masses. CHEST: Clear to auscultation. No respiratory distress. No wheezes rales or rhonchi HEART: Regular rate and rhythm. No murmur heard. Normal peripheral pulses. ABDOMEN: Soft, nontender, nondistended, normal active bowel sounds. EXTREMITIES: Normal range of motion. No edema. SKIN: Warm, dry, no rash. NEURO: No focal deficits. Alert and oriented x3. PSYCH: Normal mood and affect Course Vital Signs Vital signs: Vital Signs Temperature 97.6 F 02/24/25 14:32 Pulse Rate 67 02/24/25 14:32 Respiratory Rate 20 02/24/25 14:32 Blood Pressure 104/69 02/24/25 14:32 Pulse Oximetry 99 02/24/25 14:32 Oxygen Delivery Room Air 02/24/25 14:32 Temperature 97.6 F 02/24/25 14:32 Pulse Rate 67 02/24/25 14:32 Respiratory Rate 20 02/24/25 14:32 Blood Pressure 104/69 02/24/25 14:32 Pulse Oximetry 99 02/24/25 14:32 Oxygen Delivery Room Air 02/24/25 14:32 [facility] Narrative Medical decision making narrative: Patient presents to the ER for right sided abdominal pain. She is afebrile and nontoxic appearing. Cbc without leukocytosis. Metabolic panel without concerning findings. Urine without evidence of infection. CT abdomen pelvis without acute findings. Showing atherosclerotic changes. Patient and family updated on workup and agree with plan of care. Follow up with PCP Differential Diagnosis Differential Diagnosis: Diverticulitis, pancreatitis, ureterolithiasis, muscle strain Lab Data [facility] Lab Attestation statement: I personally reviewed the patient's lab results. 02/24/25 15:57 02/24/25 15:57 Labs: Lab Results 02/24/25 02/24/25 Range/Units 15:57 16:01 WBC 7.4 (4.5-10.0) K/mm3 RBC 4.49 (4.2-5.4) M/mm3 Hgb 13.2 (12.0-15.0) g/dL Hct 40.4 (37.0-47.0) % MCV 90.0 (80-100) fl MCH 29.4 (26-34) pg MCHC 32.7 (32-36) g/dl RDW 16.8 H (11.5-14.5) % Plt Count 354 (150-375) k/mm3 MPV 9.8 (7.4-10.4) fl Immature Gran % (Auto) 0.4 (0-0.5) % Neut % (Auto) 62.1 (45.5-73.1) % Lymph % (Auto) 27.6 (18.3-44.2) % Hall % (Auto) 7.3 (2.6-8.5) % Eos % (Auto) 2.2 (0-4.4) % Baso % (Auto) 0.4 (0.2-1.2) % Lymph # (Auto) 2.05 (0.9-3.2) K/mm3 Hall # (Auto) 0.5 (0.1-0.6) K/mm3 Eos # (Auto) 0.2 (0-0.3) K/mm3 Baso # (Auto) 0.0 (0.0-0.1) K/mm3 Abs Immat Gran (auto) 0.03 (0.00-0.031) K/mm3 Absolute Neuts (auto) 4.6 (1.3-6.7) K/mm3 Absolute Nucleated RBC 0.000 (0.0-0.012) K/mm3 Nucleated RBC % 0.0 (0.0-0.2) % Sodium 138 (137-145) mmol/L Potassium 4.0 (3.4-5.0) mmol/L Chloride 103 (98-107) mmol/L Carbon Dioxide 27 (22-30) mmol/L Anion Gap 8 (4-12) mmol/L BUN 23 H D (7-17) mg/dL Creatinine 0.75 (0.7-1.0) mg/dL Estim Creat Clear Calc 48 ml/min Estimated GFR > 60 (59 - ) Glucose 94 (65-110) mg/dL Calcium 9.6 (8.4-10.2) mg/dL Total Bilirubin 0.5 (0.2-1.3) mg/dL AST 34 (14-36) U/L ALT 26 (6-35) U/L Alkaline Phosphatase 172 H (38-126) U/L Total Protein 7.1 (6.3-8.2) g/dL Albumin 4.0 (3.5-5.1) g/dL Lipase 31 (23-300) U/L Urine Color Yellow (Yellow) Urine Appearance Clear (Clear) Urine pH 8.0 (5.0-9.0) Ur Specific [place] 1.010 (1.001-1.035) Urine Protein Negative (Negative) mg/dL Urine Glucose (UA) 2+ H (Negative) mg/dL Urine Ketones Negative (Negative) mg/dL Ur Blood (Man) Negative (Negative) Urine Nitrate Negative (Negative) Urine Bilirubin Negative (Negative) Urine Urobilinogen 0.2 (<2.0) mg/dL Leukocyte Esterase Rfl Negative (Negative) JENNIE/UL Imaging Data Radiologist's impression: ITS Impressions Abdomen/Pelvis CT 02/24/25 17:17 IMPRESSION: 1. No acute findings noted in the upper abdomen and pelvis. 2. 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 Stable calcified aneurysm of splenic artery. 3. Severe coronary artery calcification of left anterior descending coronary artery. ITS Impressions Abdomen/Pelvis CT 02/24/25 17:17 IMPRESSION: 1. No acute findings noted in the upper abdomen and pelvis. 2. 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 Stable calcified aneurysm of splenic artery. 3. Severe coronary artery calcification of left anterior descending coronary artery. Critical Care Time Critical Care Time Critical Care Time: No Discharge Plan Discharge Clinical Impression: Right sided abdominal pain, Atherosclerosis of superior mesenteric artery, Atherosclerosis of renal artery Abdominal wall strain Qualifiers: Encounter type: initial encounter Qualified Code(s): S39.011A - Strain of muscle, fascia and tendon of abdomen, initial encounter Coronary atherosclerosis Qualifiers: Coronary Disease-Associated Artery/Lesion type: unspecified vessel or lesion type [place] vs. transplanted heart: [place] heart Associated angina: without angina Qualified Code(s): I25.10 - Atherosclerotic heart disease of [place] coronary artery without angina pectoris Patient Disposition: Home Condition: Stable Instructions: Coronary Artery Disease (DC), Muscle Strain (ED), Abdominal Pain (ED) Additional Instructions: Return to the ER if you experience fever, abdominal pain with nausea and vomiting, you are unable to keep down liquids or solids, or any other symptoms that are concerning to you Tylenol or Ibuprofen as needed for pain. Muscle relaxer as needed for pain. Lidocaine patch to the area Follow up with your primary care doctor Patient Language: Czech Prescriptions: New cyclobenzaprine 10 mg tablet 10 mg PO HS PRN (Reason: muscle spasm) Qty: 10 0RF lidocaine 5 % adhesive patch,medicated 1 patch topical DAILY Qty: 15 0RF Rx Instructions: leave on most painful area for up to 12 hrs No Action cholecalciferol (vitamin D3) 125 mcg (5,000 unit) capsule 125 mcg PO DAILY furosemide [Lasix] 20 mg tablet 20 mg PO BID Jardiance 10 mg tablet 10 mg PO DAILY spironolactone 25 mg tablet 12.5 mg PO DAILY esomeprazole magnesium [Nexium] 40 mg capsule,delayed release(DR/EC) 40 mg PO DAILY Qty: 90 0RF ketoconazole 2 % cream 1 applic topical DAILY Qty: 60 0RF (DME) blood-glucose meter Misc See Rx Instructions .Route Qty: 1 0RF Rx Instructions: As directed glimepiride 1 mg tablet PO BID [place] Durable Barrier 1.3 % cream 1 applic topical BID Qty: 28 0RF hydroxyzine HCl 10 mg tablet 10 mg PO BID PRN (Reason: itching) Qty: 30 0RF tramadol 50 mg tablet 50 mg PO BID Qty: 180 1RF amlodipine 5 mg tablet See Rx Instructions .ROUTE .COMPLEX Qty: 45 3RF Dose Instruction: TAKE 1/2 TABLET BY MOUTH ONCE DAILY Rx Instructions: TAKE 1/2 TABLET BY MOUTH ONCE DAILY magnesium oxide 400 mg magnesium capsule 400 mg PO BID Qty: 60 0RF atorvastatin 20 mg tablet 20 mg PO DAILY Qty: 90 3RF olmesartan 40 mg tablet 40 mg PO DAILY Qty: 90 0RF (DME) Accu-Chek Marielle Plus test strp Strip See Rx Instructions .Route Qty: 100 0RF Rx Instructions: check glucose once daily metoprolol succinate 50 mg tablet extended release 24 hr 50 mg PO DAILY Qty: 90 0RF mirabegron [Myrbetriq] 50 mg tablet extended release 24 hr See Rx Instructions .ROUTE .COMPLEX Qty: 90 1RF Dose Instruction: TAKE 1 TABLET BY MOUTH DAILY Rx Instructions: TAKE 1 TABLET BY MOUTH DAILY allopurinol 300 mg tablet 300 mg PO DAILY Qty: 90 0RF hydralazine 50 mg tablet 50 mg PO BID Qty: 60 0RF Follow-up/Referrals: Jacinto Trevino MD [Primary Care Provider, Family Practice]
--- OUTSIDE RECORDS SUMMARY | 2025-02-24 15:42 | XMS_ITS | Clinical Summary ---
Author Organization [facility] Healthcare Address [address] [place] [address] Care Team Providers Care Keyboard Specialist Name Role Phone Mega Che MD [...] failure) 02/09/2024 Coronary artery disease invo lving [place] coronary artery of [place] heart without angina pectoris 12/15/2016 Cardiomyopathy, ischemic 12/15/2016 History of coronary artery stent placement 12/15 Surgical History Surgery Date Site/Laterality Comments CHOLECYSTECTOMY Cholecystectomy APPENDECTOMY HYSTERECTOMY CARPAL TUNNEL RELEASE Medical History Medical History Date Comments Chronic coronary artery disease Coronary artery disease Hypertension Hypertension Gastroesophageal reflux disease GERD Hx Other Medical history polio; Comments: [facility] 07/06/2014 -paralyzed waist down Hx Other Medical osteoarthritis; Comments: [facility] 07/06/2014 - Hx Other Medical history DVT; Co mments: [facility] 07/06/2014 - Hyperlipidemia CHF (congestive heart failure) ([facility]) Electric wheelchair dependence Type 2 diabetes [...] drink = 0.6 oz pur e alcohol) [facility] Utilities Answer Date Recorded In [...] often do you attend chur ch or yazidism services? Never 02/29/2024 Do you belong to any clubs o r organizations such as latter day groups, unions, fraternal or athletic groups, or [...] any time in the past 12 m [facility], were you homeless or living in a longterm (including now)? No 02/29/2024 Personal Safety Answer Date Recorded Have you ever been in or are you currently in a harmful physical or emotional relationship or is someone making you feel afraid or unsafe? Denies 02/28/2024 Comments Unknown Sex and Gender Information Value Date Recorded Sex Assigned at Not on file Legal Sex Female 12:09 AM [employer]ING [employer] Gender Identity Not on file Sexual Orientation Not on file Last Filed Vital Signs Vital Sign Reading Time Taken Comments Blood Pressure 145/57 03/01/2024 7:37 AM T[employer]ING SANDER TENDER Pulse 76 03/01/2024 8:00 AM TURNING SANDER TENDER Temperature 36.5 C (97.7 F) 03/01/2024 7:37 AM T[employer]ING SANDER TENDER Respiratory Rate 17 03/01/2024 7:37 AM TURNING SANDER TENDER Oxygen Saturation 98% 03/01/2024 7:37 AM TURNING SANDER TENDER Inhaled Oxygen Concentration - - Weight 86.3 kg (190 lb 4.1 oz) 03/01/2024 5:31 A M [employer] Height 152.4 cm (5') 02/28/2024 6:48 AM TURNING SANDER TENDER Body Mass Index 37.16 02/28/2024 6:48 AM TURNING SANDER TENDER Plan of Treatment Health Maintenance Due Date Last Done Comments Depression Screening 1945 Hepatitis C Screening 1945 Osteoporosis Screening-Bone Density Scan 1945 DTaP/Tdap/Td Vaccine (1 - Tdap) 1957 Hepatitis B Screening 1964 Pneumococcal vaccine 65+ (1 of 1 - PCV) 1996 Zoster Vaccine (1 of 2) 1996 Well Visit 65+ 09/26/2011 Influenza Vaccine (#1) 2024 Fall Risk Assessment 03/01/2025 03/01/2024 Insurance [facility] MEDICARE ADVANTAGE IDPA Advance Directives For more information, please contact: [phone] * Full Code (Latest Code Status on File) Date Activated Date Inactivated Comments 02/28/2024 11:33 AM 03/01/2024 4:04 PM Care Teams Keyboard Specialist Relationship Specialty Start Date End Date Mega Che MD PCP - General 06/09/16
[2025-02-24] MEDS: ACETAMINOPHEN 500 MG TABLET 1000 MG PO (15:54)
[2025-02-24] MEDS: LIDOCAINE 5% PATCH 1 PATCH TRANSDERM (15:57)
[2025-02-24 16:07] LABS: Hematocrit 40.4 % (37.0-47.0); Hemoglobin 13.2 g/dL (12.0-15.0); Immature Granulocyte Percent A 0.4 % (0-0.5); Lymphocytes Absolute Auto 2.05 K/mm3 (0.9-3.2); Mean Corpuscular HGB Conc 32.7 g/dl (32-36); Mean Corpuscular Hemoglobin 29.4 pg (26-34); Mean Corpuscular Volume 90.0 fl (80-100); Nucleated Red Blood Cells Absolute Auto 0.000 K/mm3 (0.0-0.012); Nucleated Red Blood Cells Perc 0.0 % (0.0-0.2); Platelet Count Result 354 k/mm3 (150-375); Red Blood Count 4.49 M/mm3 (4.2-5.4); White Blood Count 7.4 K/mm3 (4.5-10.0)
[2025-02-24 16:09] LABS: Add Urine Microscopic? NO; Appearance Urine Clear (Clear); Glucose Urine UA 2+ mg/dL (Negative); Leukocyte Esterase Ur Negative LEU/UL (Negative); Nitrate Urine Negative (Negative); Specific Grav Ur 1.010 (1.001-1.035)
[2025-02-24 16:48] LABS: Alanine Aminotransferase 26 U/L (6-35); Albumin Level 4.0 g/dL (3.5-5.1); Alkaline Phosphatase 172 U/L (38-126); Anion Gap 8 mmol/L (4-12); Aspartate Amino Transferase 34 U/L (14-36); Bilirubin,Total 0.5 mg/dL (0.2-1.3); Blood Urea Nitrogen 23 mg/dL (7-17); Calcium 9.6 mg/dL (8.4-10.2); Carbon Dioxide 27 mmol/L (22-30); Chloride 103 mmol/L (98-107); Estimated CRCL calculation 48 ml/min; Estimated Glomerular Filt Rate > 60; Glucose 94 mg/dL (65-110); Lipase 31 U/L (23-300); Potassium 4.0 mmol/L (3.4-5.0); Sodium 138 mmol/L (137-145); Total Protein 7.1 g/dL (6.3-8.2)
== END 2025-02-24 18:38 | disposition home or self-care (01) ==
PROVIDERS: Emergency Provider Physician Assistant; PCP Family Medicine
DX: R10.9 Unspecified abdominal pain (principal); K55.1 Chronic vascular disorders of intestine; I70.1 Atherosclerosis of renal artery; I25.10 Atherosclerotic heart disease of native coronary artery without angina pectoris; S39.011A Strain of muscle, fascia and tendon of abdomen, initial encounter; G83.9 Paralytic syndrome, unspecified; B91 Sequelae of poliomyelitis; I10 Essential (primary) hypertension; K21.9 Gastro-esophageal reflux disease without esophagitis; M10.9 Gout, unspecified; M19.90 Unspecified osteoarthritis, unspecified site; Z95.5 Presence of coronary angioplasty implant and graft; X50.9XXA Other and unspecified overexertion or strenuous movements or postures, initial encounter
CPT/HCPCS: 36415; 74177; 80053; 81003; 83690; 85025; 99284; A9270; Q9967